=== PATIENT | male | born 1990 | race Caucasian/White ===

== ENCOUNTER 2022-11-14 00:59 | Inpatient (IN) | payer OTHER, SELFPAY ==
[2022-11-14 01:00] VITALS: BP 122/68; PULSE 75; RESP 16; TEMP 36.6; O2SAT 94
--- OUTSIDE RECORDS SUMMARY | 2022-11-14 01:02 | XMS_ITS | Continuity of Care Document ---
Author Name Unknown Organization [facility] ter Address [address] [place] [id number]- Care Team Providers Care Power Reactor Operator Name Role Phone Not on Staff, PCP Primary Care Physician Unavail able Encounter [facility] Date(s): 08/08/22 - 08/10/[address] [address]- Encounter Diagnosis Hallucinations(Final) - 08/09/22 Discharge Disposition: Transfer to [facility] Facility Attending Physician: Enmanuel HILL, Brittani Storey Admitting Physician: Brittani Singer MD Referring Physician: Not on Staff, Referring MD Allergies, Adverse Reactions, Alerts No Known Allergies Immunizations Given and Recorded Vaccine Date Status Refusal Reason Diphth-Tetanus Toxoids Adsorbed(oldterm) 12/03/08 Given Medications Celexa = 30 mg, By Mouth, Daily, 0 Refills, Maintenance, 01/20/19 21:18:52 EST Start Date: 01/20/19 Status: Ordered cloNIDine 0.1 mg/12 hr oral tablet, extended release 1 tablet = 0.1 mg, By Mouth, Daily at bedtime, 0 Refills, Maintenance, 01/30/19 8:31:31 EST Start Date: 01/30/19 Status: Ordered ibuprofen 800 mg oral tablet 800 mg, 1, tablet, By Mouth, 3 times a day, # 90 tablet, Refills 0, Maintenance, 01/30/19 8:33:53 EST Start Date: 01/30/19 Status: Ordered Methadone Liquid 60 mg, Solution, By Mouth, Hold for: sedated, rr<10, 08/10/22 9:00:00 EDT Start Date: 08/10/22 Stop Date: 08/10/22 Status: Completed permethrin 1% topical kit See Instructions, use as directed, # 1 kit, 0 Refills, Maintenance, 05/21/17 21:59:55 Start Date: 3/23/18 Status: Ordered traZODone 150 mg oral tablet 1 tablet = 150 mg, By Mouth, Daily at bedtime, PRN Insomnia, # 30 tablet, 0 Refills, Maintenance, 06/11/16 10:47:41, Tablet Start Date: 06/11/16 Stop Date: 07/11/16 Status: Ordered Vital Signs Most recent to oldest [Reference Range]: 1 2 3 Height 188 cm (08/10/22 2:51 AM) 188 cm (08/09/22 4:05 PM) 188 cm (08/08/22 11:50 PM) Weight 81 kg (08/10/22 2:51 AM) 81 kg (08/09/22 4:05 PM) 81 kg (08/08/22 11:50 PM) Oxygen Saturation [94-100 %] 98 % (08/10/22 9:00 AM) 99 % (08/10/22 2:51 AM) 94 % (08/09/22 4:05 PM) Pulse Rate [55-90 bpm] 57 bpm (08/10/22 9:00 AM) 51 bpm *L* (08/10/22 2:51 AM) 79 bpm (08/09/22 4:05 PM) Body Mass Index [18.5-24.99 kg/m2] 22.92 kg/m2 (08/10/22 2:51 AM) 22.92 kg/m2 (08/09/22 4:05 PM) 22.92 kg/m2 (08/08/22 11:41 PM) Blood Pressure [90-138/55-84 mm Hg] 117/61mm Hg (08/10/22 9:00 AM) 120/63mm Hg (08/10/22 2:51 AM) 119/70mm Hg (08/09/22 4:05 PM) Respiratory Rate [16-30 br/min] 18 br/min (08/10/22 9:04 AM) 18 br/min (08/10/22 9:00 AM) 18 br/min (08/10/22 2:51 AM) Temperature [96.8-100.4 DegF] 98.4 DegF (08/10/22 9:00 AM) 97.9 DegF (08/10/22 2:51 AM) 98.5 DegF (08/09/22 4:05 PM) Mode of Delivery (Oxygen) Room air (08/10/22 9:00 AM) Room air (08/10/22 2:51 AM) Room air (08/09/22 4:05 PM) Blood pressure sites Arm, right (08/10/22 9:00 AM) Arm, right (08/10/22 2:51 AM) Arm, right (08/09/22 4:05 PM) Temperature Route Oral (08/10/22 9:00 AM) Oral (08/10/22 2:51 AM) Oral (08/09/22 4:05 PM) Dry Weight 81 kg (08/10/22 2:51 AM) 81 kg (08/09/22 4:05 PM) 81 kg (08/08/22 11:50 PM) Weight Obtained Via Standing scale (08/08/22 11:41 PM) Dry Weight Obtained Via Standing scale (08/08/22 11:41 PM) Social History Social History Type Response Smoking Status Current every day sm oker; Type: Cigarettes; Other: 1/2ppd cigarettes per day; entered on: 05/21/17 Sex Patient Care team information Care Team Personnel Name: Shaka Tran RN Position: [facility] ED RN W/OE and Tasks Member Role: Primary Care Nurse Name: Humberto Wan RN Position: [facility] SN RN Member Role: Primary Care Nurse Name: Not on Staff, PCP Position: [facility] Physician (General Medicine) Member Role: PCP Name: *[facility], ED Attending Position: [facility] ED Attendings Patient Name: Tawanna Mantilla RN Position: [facility] ED RN W/OE and Tasks Member Role: Patient Care Provider Name: Enmanuel HILL, Brittani Storey Position: [facility] ED Medicine MD Member Role: ED Attending Physician Address: Address: [address] [place] [address]- Care Team Related Persons Name: JORDIN MARTINEZ Address: home [address] [place] [address]
--- OUTSIDE RECORDS SUMMARY | 2022-11-14 01:02 | XMS_ITS | Continuity of Care Document ---
Author Name Unknown Organization [facility] ter Address [address] [place] [address]- Care Team Providers Care Informatics Specialist Name Role Phone Not on Staff, PCP Primary Care Physician Unavail able Encounter [facility] Date(s): 06/30/22 - 07/01/[address] [address]- Discharge Disposition: Transfer to [facility] Facility Attending Physician: Taylor Kay MD Admitting Physician: Taylor Kay MD Referring Physician: Not on Staff, Referring [...] EST Start Date: 01/30/19 Status: Ordered Methadone Tablet 65 mg, Tablet, By Mouth, 07/01/22 9:23:00 EDT Start Date: 07/01/22 Stop Date: 07/01/22 Status: Completed permethrin 1% topical kit See Instructions, use as directed, # 1 kit, 0 Refills, Maintenance, 05/21/17 21:59:55 Start Date: 05/21/17 Status: Ordered traZODone 150 mg oral tablet 1 tablet = 150 mg, By Mouth, Daily at bedtime, PRN Insomnia, # 30 tablet, 0 Refills, Maintenance, 06/11/16 10:47:41, Tablet Start Date: 06/11/16 Stop Date: 07/11/16 Status: Ordered Vital Signs Most recent to oldest [Reference Range]: 1 2 3 Oxygen Saturation [94-100 %] 99 % (07/01/22 3:55 PM) 98 % (07/01/22 2:22 AM) 97 % (06/30/22 8:24 PM) Pulse Rate [55-90 bpm] 81 bpm (07/01/22 3:55 PM) 69 bpm (07/01/22 2:22 AM) 120 bpm *H* (06/30/22 8:20 PM) Blood Pressure [90-138/55-84 mm Hg] 118/69mm Hg (07/01/22 2:22 AM) 144/91mm Hg *H* (06/30/22 8:24 PM) Respiratory Rate [16-30 br/min] 16 br/min (07/01/22 3:55 PM) 16 br/min (07/01/22 9:44 AM) 18 br/min (07/01/22 2:22 AM) Temperature [96.8-100.4 DegF] 98.7 DegF (07/01/22 3:55 PM) 98.2 DegF (06/30/22 8:24 PM) Mode of Delivery (Oxygen) Room air (07/01/22 3:55 PM) Room air (07/01/22 2:22 AM) Room air (06/30/22 8:24 PM) Blood pressure sites Arm, left (07/01/22 2:22 AM) Arm, left (06/30/22 8:24 PM) Temperature Route Oral (07/01/22 3:55 PM) Oral (06/30/22 8:24 PM) Social History Social History Type Response Smoking Status Current every day loreta quintana; Type: Cigarettes; Other: 1/2ppd cigarettes per day; entered on: 05/21/17 Sex EKG study * Event Display: ECG 12-Lead Authored Date: Please click on pdf link to open report * Event Display: ECG 12-Lead Authored Date: Ventricular Rate: 64 BPM Atrial Rate: 64 BPM P-R Interval: 188 ms QRS Duration: 100 ms Q-T Interval: 418 ms QTC Calculation(Bazett): 431 ms P [place]: 46 degrees R [place]: 83 degrees T [place]: 66 degrees Normal sinus rhythm ST elevation, consider early repolarization Borderline ECG When compared with ECG of 07-JUN-2016 18:13, No significant change was found Confirmed by LAKESHIA LEACH MD ([id number]) on 07/01/2022 10:43:28 AM [place]: LAKESHIA LEACH MD Patient Care team information Care Team Personnel Name: Shaka Tran RN Position: [facility] ED RN W/OE and Tasks Member Role: Primary Care Nurse Name: Humberto Wan RN Position: [facility] SN RN Member Role: Primary Care Nurse Name: Not on Staff, PCP Position: [facility] Physician (General Medicine) Member Role: PCP Name: *[facility], ED Attending Position: [facility] ED Attendings Patient Name: Shaka Tran RN Position: [facility] ED RN W/OE and Tasks Member Role: Patient Care Provider Name: Taylor Kay MD Position: [facility] ED Medicine MD Member Role: ED Attending Physician Address: Address: [address] [place] [id number]- Care Team Related Persons Name: JORDIN MARTINEZ Address: home [address] [place] [address]
--- OUTSIDE RECORDS SUMMARY | 2022-11-14 01:02 | XMS_ITS | Continuity of Care Document ---
Author Name Unknown Organization [facility] Address [address] [place] [id number]- Care Team Providers Care Data Mining Analyst Name Role Phone Not on Staff, PCP Primary Care Physician Unavail able Encounter [facility] Date(s): 12/05/19 - 12/05/[address] [address]- [facility] Discharge Disposition: A-D/C Walkout Attending Physician: Not on Staff, Attending MD Admitting Physician: Not on Staff, Admitting MD Referring Physician: Not on Staff, Referring MD Allergies, Adverse Reactions, Alerts Substance Reaction Severity Status NKA Active Immunizations Given and Recorded Vaccine Date Status [...] 8:33:53 EST Start Date: 01/30/19 Status: Ordered permethrin 1% topical kit See Instructions, use [...] recent to oldest [Reference Range]: 1 2 Oxygen Saturation [94-100 %] 98 % (12/05/19 1:46 PM) 99 % (12/05/19 1:34 PM) Pulse Rate [55-90 bpm] 67 bpm (12/05/19 1:46 PM) 85 bpm (12/05/19 1:34 PM) Blood Pressure [90-138/55-84 mm Hg] 117/ 66mm Hg (12/05/19 1:46 PM) Respiratory Rate [16-30 br/min] 20 br/mi n (12/05/19 2:06 PM) 16 br/min (12/05/19 1:46 PM) Temperature [96.8-100.4 DegF] 98.1 DegF (12/05/19 1:46 PM) Mode of Delivery (Oxygen) Room air (12/05/19 1:46 PM) Room air (12/05/19 1:34 PM) Blood pressure sites Arm, right (12/05/19 1:46 PM) Temperature Route Oral (12/05/19 1:46 PM) Social History Social History Type Response Smoking Status Current every day loreta quintana; Type: Cigarettes; Other: 1/2ppd cigarettes per day; entered on: 05/21/17 Sex
--- OUTSIDE RECORDS SUMMARY | 2022-11-14 01:02 | XMS_ITS | Continuity of Care Document ---
Author Name Unknown Organization [facility] ter Address [address] [place] [id number]- Care Team Providers Care Negative Turner Apprentice Name Role Phone Not on Staff, PCP Primary Care Physician Unavail able Encounter [facility] Date(s): 12/16/21 - 12/16/[address] [address]- Encounter Diagnosis Agitation(Final) - 12/16/21 Discharge Disposition: A-D/C Home Attending Physician: Herman Heck MD Admitting Physician: Herman Heck MD Referring Physician: Not on Staff, Referring [...] Most recent to oldest [Reference Range]: 1 Oxygen Saturation [94-100 %] 95 % (12/16/21 2:25 PM) Pulse Rate [55-90 bpm] 63 bpm (12/16/21 2:25 PM) Blood Pressure [90-138/55-84 mm Hg] 103/ 58mm Hg (12/16/21 2:25 PM) Respiratory Rate [16-30 br/min] 18 br/mi n (12/16/21 2:25 PM) Temperature [96.8-100.4 DegF] 98.7 DegF (12/16/21 2:25 PM) Mode of Delivery (Oxygen) Room air (12/16/21 2:25 PM) Temperature Route Oral (12/16/21 2:25 PM) Social History Social History Type Response Smoking Status Current every day loreta quintana; Type: Cigarettes; Other: 1/2ppd cigarettes per day; entered on: 05/21/17 Sex Patient Care team information Personnel Name: Not on Staff, PCP
[2022-11-14 02:04] VITALS: BMI 27.8
--- NOTE | 2022-11-14 03:56 | PC.ADMIT ---
Patient admitted to [facility] from [facility] ED on 11/14/22 at 0100 on a CV? for increased SI secondary to paranoia. Patient reporting increase in auditory and visual hallucinations, despite being med compliant.Patient has history of inpt hospitalizations in the past. Toxicology is positive for methadone, cocaine, THC, fentanyl and cannabis. Alcohol < 3. Patient reports being on scheduled methadone 110mg daily, utilizes [facility] in [place]. Upon arrival to the unit, patient dressed in hospital [facility] and was sleeping on stretcher. Alert and oriented x 4. He had already received his HS meds and could barely stay awake. Skin and contraband check with second RN completed. Patient declined to sign LEONOR for any friends or family, he does not wish for them to know he is here. He signed an LEONOR for his pharmacy only. Vital signs, height and weight obtained. Patient declined to participate in the admission process due to being so tired. He denies SI/HI/AH/VH at time of admission, contracts for safety. This bond underwriter attempted to call pharmacy to reconcile meds however their computer system was down for updates. Will call to verify methadone dose upon clinic opening and reconcile meds with patient?s pharmacy once computers are back up.
--- NOTE | 2022-11-14 07:00 | HE.PHANOTE ---
RE: methadone Received methadone verification form per [facility] 110mg last dose 11/11/22
[2022-11-14 09:35] VITALS: BP 136/80; PULSE 75; RESP 18; TEMP 36.4; O2SAT 98
[2022-11-14] MEDS: QUEtiapine Fumarate 25 MG TABLET PO (09:42)
[2022-11-14] MEDS: OLANZapine 5 MG TABLET PO (09:42)
[2022-11-14] MEDS: methADONE HCl 20 MG/2 ML ORAL.CONC 110 MG PO (09:44)
--- NOTE | 2022-11-14 10:06 | HO.PSYADMNOT ---
HPI Date of Service: 11/14/22 Chief Complaint: Opioid Use D/O w/ perpetual disturbances, Stimuli Sources of Information: patient interviewed (pt refused agreed to meet tomorrow - I tried 3 x), chart reviewed and crisis/core team assessment reviewed HPI Subjective Notes: Conditional Voluntary Narrative: Pt presented to [facility] he was having hallucinations and felt the tv was talking to him- saw cars that weren't there, he is on MAT for opiate use , and has been having inc intrusve thougth plan to over dose However his tox screen was reported positive for methadone, cocain, thc and fenatnyl and mj- So sobreity seems unlikely - Goes to [facility] for methadone- dose 110mg Past Psychiatric History: prior psychiatric care- Medical Evaluation Reviewed: Hospitalist Charity Pending [facility] Substance History: opiate, cocaine, thc, Diagnostics Vital Signs (24Hr): Vital Signs - 24 hr 11/14/22 01:00 Temperature 97.8 F Pulse Rate 75 Respiratory Rate 16 Blood Pressure 122/68 Pulse Oximetry 94 Oxygen Delivery Method Room Air BMI result Body Mass Index 27.8 Meds/Allergies Meds Home Medications Medication Instructions Recorded Confirmed Type hydroxyzine HCl 50 mg tablet 50 mg PO BID PRN Anxiety 11/14/22 11/14/22 History ibuprofen 600 mg tablet 400 mg PO BID PRN pain 11/14/22 11/14/22 History olanzapine 5 mg tablet 5 mg PO DAILY 11/14/22 11/14/22 History quetiapine 25 mg tablet 25 mg PO DAILY 11/14/22 11/14/22 History trazodone 100 mg tablet 200 mg PO BEDTIME 11/14/22 11/14/22 History Allergies Allergies Allergy/AdvReac Type Severity Reaction Status Date / Time No Known Allergies Allergy Unverified 11/16/19 19:18 [No Known Allergies*] Mental Status Exam Mental Status Exam Narrative: very irritable I just want to watch TV wearing eye glasses with one side covered up with tape/papertowel? was given multiple chances to meet with provider Patient Appearance: Inappropriate and Unkempt Patient Orientation: Person and Place Level of Consciousness: Awake Patient Behavior: Belligerent, Resistive to Care and Avoidant Mood Description: Labile and Angry Affect Description: Hostile Ability to Follow Directions: Poor Speech Pattern: Clear Thought Process: Distracted Thought Content: positive for Suicidal Ideation Depressive Symptoms: Increased Irritability Abnormal Motor Activity Signs and Symptoms: Muscle Rigidity Judgement: Poor Assessment & Plan Assessment & Plan (1) Hallucination, visual: Status: Acute Code(s): R44.1 - Visual hallucinations (2) Paranoia (psychosis): Status: Acute Code(s): F22 - Delusional disorders (3) Opiate abuse, continuous: Status: Acute Code(s): F11.10 - Opioid abuse, uncomplicated (4) Cocaine abuse: Status: Acute Code(s): F14.10 - Cocaine abuse, uncomplicated (5) Cannabis abuse: Status: Acute Code(s): F12.10 - Cannabis abuse, uncomplicated Plan interview tomorrow contintue current meds, watch for withdrawl ? though on scheduled methadone- other things not likely to physically withdraw from very low dose antipsychotic for condition- Patient educated on: other Informed Consent: further education needed Reason for continued inpatient stay Substantial Risk for: rapid decompensation Statement Statement: I have reviewed the history and physical and performed a pertinent examination on my patient. No changes have occurred unless specified. If the History and Physical was not performed prior to admission, the Hospitalist's service will be consulted for completing the admission physical. reviewed dr pittman's exam/note Time Spent With Patient Time: Total time managing care of this patient today ____ minutes.
--- NOTE | 2022-11-14 10:53 | HO.PM.IMCN ---
History of Present Illness Data of Consult Service Date: 11/14/22 Primary Care Provider: Unknown Physician HPI Saw the patient in medical evaluation. 32 year male admitted for management SI related to Paranoia. Patient denies any chronic medial illnesses and when asked about reasons he is here he says he doesn't want to talk about it and didn't want to talk about any thing else this time but allowed me to examed him Review of Systems Review of Systems: He declined to answer PMFSH Social History Housing: House Do you presently have visiting nurse or other home services: No Patient Tobacco Use Status: Current everyday Tobacco user Tobacco use type: Cigarette Smoked in Last 30 Days: Yes Use of substances other than those prescribed or required for medical reasons: Yes Substance Use Type: Crack/Cocaine, Heroin and Marijuana Substance Use Frequency: Daily Last Used Substance: Just Prior to Admission Currently Displaying Signs/Symptoms of Drug Intoxication Withdrawal: No Advance Directives: No Advance Directives Information Provided: No Do you have thoughts of harming others: None Do you have a plan to hurt others: No Plan Recently lost weight without trying: No Nutrition Risks: No Nutritional Risk Poor oral hygiene: No Meds Allergies Allergy/AdvReac Type Severity Reaction Status Date / Time No Known Allergies Allergy Unverified 11/16/19 19:18 [No Known Allergies*] Active Medications: Current Medications Acetaminophen (Acetaminophen 325 Mg Tablet) 650 mg PO Q6H PRN PRN Reason: Headache/Pain Mild Scale (1-3) Al Hydroxide/Mg Hydroxide (Magnesium Hydrox/Alum Hydrox 30 Ml Oral.Susp) 30 ml PO Q6H PRN PRN Reason: Heartburn/Nausea Hydroxyzine HCl (Hydroxyzine Hcl 25 Mg Tablet) 25 mg PO Q6H PRN PRN Reason: Anxiety Magnesium Hydroxide (Milk Of Magnesia 30 Ml Oral.Susp) 30 ml PO DAILY PRN PRN Reason: Constipation Methadone HCl (Methadone Hcl 20 Mg/2 Ml Oral.Conc) 110 mg PO DAILY [facility] Last Admin: 11/14/22 09:44 Dose: 110 mg Olanzapine (Olanzapine 5 Mg Tablet) 5 mg PO DAILY [facility] Last Admin: 11/14/22 09:42 Dose: 5 mg Quetiapine Fumarate (Quetiapine Fumarate 25 Mg Tablet) 25 mg PO DAILY [facility] Last Admin: 11/14/22 09:42 Dose: 25 mg Trazodone HCl (Trazodone Hcl 100 Mg Tablet) 200 mg PO BEDTIME [facility] Home Medications Medication Instructions Recorded Confirmed Last Taken Type hydroxyzine HCl 50 mg tablet 50 mg PO BID PRN Anxiety 11/14/22 11/14/22 Unknown History ibuprofen 600 mg tablet 400 mg PO BID PRN pain 11/14/22 11/14/22 Unknown History olanzapine 5 mg tablet 5 mg PO DAILY 11/14/22 11/14/22 Unknown History quetiapine 25 mg tablet 25 mg PO DAILY 11/14/22 11/14/22 Unknown History trazodone 100 mg tablet 200 mg PO BEDTIME 11/14/22 11/14/22 Unknown History Physical Exam Vital Signs and Narrative: Vital Signs: Last Vital Signs Temp 97.5 F 11/14/22 09:35 Pulse 75 11/14/22 09:35 Resp 18 11/14/22 09:35 BP 136/80 11/14/22 09:35 Pulse Ox 98 11/14/22 09:35 O2 Del Method Room Air 11/14/22 09:35 BMI result Body Mass Index 27.8 Const: Other: General: AO X 3, no acute distress heent unremarkable Resp: CTA bilateral CVS: S1,S2,RRR GI: +BS, NT, no distention Skin: No rash Neuro: motor grossly intact, CN 2 to 12 intact Psych: appropriate affect Assessment and Plan (1) Encounter for medical assessment: Status: Acute Plan 32 year old male admitted for management of SI with Paranoia, seen in medical consultation. I reviewed vitals, meds and generally does not appear to have any acute medical issues at this time. Recommend continuing current care directed by Psychiatric provider. Thanks for the consult Time Spent With Patient Time: Total time managing care of this patient today ____ minutes.
[2022-11-14] MEDS: Nicotine Polacrilex Lozenge 4 MG LOZENGE BUCCAL (11:41)
[2022-11-14] MEDS: traZODone HCL 100 MG TABLET 200 MG PO (20:57)
[2022-11-15 08:35] VITALS: BP 132/84; PULSE 96; RESP 18; TEMP 36.4; O2SAT 98
[2022-11-15] MEDS: OLANZapine 5 MG TABLET PO (08:38)
[2022-11-15] MEDS: Nicotine 21 MG PATCH.TD24 TRANSDERMA (08:38)
[2022-11-15] MEDS: QUEtiapine Fumarate 25 MG TABLET PO (08:38)
[2022-11-15] MEDS: methADONE HCl 20 MG/2 ML ORAL.CONC 110 MG PO (08:39)
[2022-11-15] MEDS: Nicotine Polacrilex Lozenge 4 MG LOZENGE BUCCAL ×2 (09:14→11:19)
--- NOTE | 2022-11-15 11:37 | HO.PSYCHPN ---
Subjective Subjective Date of Service: 11/15/22 Reason For Visit: Opioid Use D/O w/ perpetual disturbances, Stimuli Subjective Notes: Conditional Voluntary Interim History: Continues uncooperative with this provider- always refusing to meet -today he says nauseated, yesterday he said fatigued=- Asked if he understood cv and he says he did- Asked if wanted something for nausea he said no- he had just eating lunch- Medication Compliance: Yes (but on xs low dose for psychosis) Side effects from medications: No Attending Groups: Intermittent Review of Systems Acute medical concerns: Yes nausea? Medical Review of Systems: unchanged Mental Status Exam Mental Status Exam Narrative: broken glasses, lying in bed- refusing to meet with provider- Patient Appearance: Disheveled and Unkempt Patient Orientation: Person, Place and Time Level of Consciousness: Drowsy Patient Behavior: Guarded, Resistive to Care, Avoidant and Uncooperative Mood Description: Angry Affect Description: Labile Speech Pattern: Poor Articulation Thought Content: positive for Disorganized Abnormal Motor Activity Signs and Symptoms: Restlessness Judgement: Poor Diagnostics Vital Signs (24Hr): Vital Signs - 24 hr 11/15/22 08:35 Temperature 97.6 F Pulse Rate 96 Respiratory Rate 18 Blood Pressure 132/84 Pulse Oximetry 98 Oxygen Delivery Method Room Air BMI result Body Mass Index 27.8 Medications Medications Current Medications Acetaminophen (Acetaminophen 325 Mg Tablet) 650 mg PO Q6H PRN PRN Reason: Headache/Pain Mild Scale (1-3) Al Hydroxide/Mg Hydroxide (Magnesium Hydrox/Alum Hydrox 30 Ml Oral.Susp) 30 ml PO Q6H PRN PRN Reason: Heartburn/Nausea Hydroxyzine HCl (Hydroxyzine Hcl 25 Mg Tablet) 25 mg PO Q6H PRN PRN Reason: Anxiety Magnesium Hydroxide (Milk Of Magnesia 30 Ml Oral.Susp) 30 ml PO DAILY PRN PRN Reason: Constipation Methadone HCl (Methadone Hcl 20 Mg/2 Ml Oral.Conc) 110 mg PO DAILY [facility] Last Admin: 11/15/22 08:39 Dose: 110 mg Nicotine (Nicotine 21 Mg Patch.Td24) 21 mg TRANSDERMA DAILY [facility] Last Admin: 11/15/22 08:38 Dose: 21 mg Nicotine Polacrilex (Nicotine Polacrilex Lozenge 4 Mg Lozenge) 4 mg BUCCAL Q2H PRN PRN Reason: Nicotine Cravings Last Admin: 11/15/22 11:19 Dose: 4 mg Olanzapine (Olanzapine 5 Mg Tablet) 5 mg PO DAILY [facility] Last Admin: 11/15/22 08:38 Dose: 5 mg Quetiapine Fumarate (Quetiapine Fumarate 25 Mg Tablet) 25 mg PO DAILY [facility] Last Admin: 11/15/22 08:38 Dose: 25 mg Trazodone HCl (Trazodone Hcl 100 Mg Tablet) 200 mg PO BEDTIME [facility] Last Admin: 11/14/22 20:57 Dose: 200 mg Allergies Allergies Allergy/AdvReac Type Severity Reaction Status Date / Time No Known Allergies Allergy Unverified 11/16/19 19:18 [No Known Allergies*] Assessment & Plan Assessment & Plan (1) Hallucination, visual: Status: Acute Code(s): R44.1 - Visual hallucinations (2) Paranoia (psychosis): Status: Acute Code(s): F22 - Delusional disorders (3) Opiate abuse, continuous: Status: Acute Code(s): F11.10 - Opioid abuse, uncomplicated (4) Cocaine abuse: Status: Acute Code(s): F14.10 - Cocaine abuse, uncomplicated (5) Cannabis abuse: Status: Acute Code(s): F12.10 - Cannabis abuse, uncomplicated Plan interview tomorrow contintue current meds, watch for withdrawl ? though on scheduled methadone- other things not likely to physically withdraw from very low dose antipsychotic for condition- 11/15 minor doses of medication so far unwilling to engage in care-though visible on unit and mileu Patient educated on: diagnosis and medication risk/benefits Informed Consent: further education needed Reason for continued inpatient stay Substantial Risk for: inability to function and rapid decompensation Time Spent With Patient Time: Total time managing care of this patient today ____ minutes.
[2022-11-15] MEDS: traZODone HCL 100 MG TABLET 200 MG PO (20:47)
[2022-11-15 21:32] VITALS: BP 120/62; PULSE 66; RESP 16; TEMP 36.6; O2SAT 98
[2022-11-16 08:54] VITALS: BP 126/72; PULSE 67; RESP 16; TEMP 36; O2SAT 97
[2022-11-16] MEDS: methADONE HCl 20 MG/2 ML ORAL.CONC 110 MG PO (08:59)
[2022-11-16] MEDS: Nicotine 21 MG PATCH.TD24 TRANSDERMA (09:00)
[2022-11-16] MEDS: OLANZapine 5 MG TABLET PO (09:00)
[2022-11-16] MEDS: QUEtiapine Fumarate 25 MG TABLET PO (09:00)
[2022-11-16] MEDS: Nicotine Polacrilex Lozenge 4 MG LOZENGE BUCCAL ×3 (09:07→13:37)
[2022-11-16] MEDS: hydrOXYzine HCL 25 MG TABLET PO (11:14)
[2022-11-16] MEDS: Acetaminophen 325 MG TABLET 650 MG PO (11:14)
--- NOTE | 2022-11-16 14:34 | HO.PSYCHPN ---
Subjective Subjective Date of Service: 11/16/22 Reason For Visit: Opioid Use D/O w/ perpetual disturbances, Stimuli Subjective Notes: Conditional Voluntary Interim History: Reviewed in team and . T/W and social media campaign manager met with patient. Patient presents guarded during 1:1. Patient stated, I came to the hospital because the voices were getting worse and made me suicidal. Patient reports his voices are judgmental and makes me nervous around people . He reports his voices improve with substance use;states he would like a referral to a TSS or CSS program. He reports suicidal ideation with plan to OD. Denies HI. Reviewed medications risks/benefits; pt agreed to increase in zyprexa. Medication Compliance: Yes Side effects from medications: No Attending Groups: Intermittent Review of Systems Constitutional: Reports as per HPI Eyes: Reports as per HPI Reports as per HPI Cardiovascular: Reports as per HPI Respiratory: Reports as per HPI Gastrointestinal: Reports as per HPI Genitourinary: Reports as per HPI Musculoskeletal: Reports as per HPI Skin/Breast: Reports as per HPI Reports as per HPI Psychiatric: Reports as per HPI Endocrine: Reports as per HPI Hematologic/Lymphatic: Reports as per HPI Allergic/Immunologic: Reports as per HPI Mental Status Exam Mental Status Exam Narrative: Pt is alert and oriented; behavior is cooperative and guarded; dressed in casual attire with unkempt hair; mood is described as depressed ; eye contact appropriate; Speech is normal rate, volume and prosody and not pressured; no psychomotor agitation/retardation present; thought process is organized and goal directed; Thought content is on tx; denies HI. Reports auditory hallucinations. Patients insight and judgment are poor. Diagnostics Vital Signs (24Hr): Vital Signs - 24 hr 11/15/22 21:32 11/16/22 08:54 Temperature 97.8 F 96.8 F Pulse Rate 66 67 Respiratory Rate 16 16 Blood Pressure 120/62 126/72 Pulse Oximetry 98 97 Oxygen Delivery Method Room Air Room Air BMI result Body Mass Index 27.8 Medications Medications Current Medications Acetaminophen (Acetaminophen 325 Mg Tablet) 650 mg PO Q6H PRN PRN Reason: Headache/Pain Mild Scale (1-3) Last Admin: 11/16/22 11:14 Dose: 650 mg Al Hydroxide/Mg Hydroxide (Magnesium Hydrox/Alum Hydrox 30 Ml Oral.Susp) 30 ml PO Q6H PRN PRN Reason: Heartburn/Nausea Hydroxyzine HCl (Hydroxyzine Hcl 25 Mg Tablet) 25 mg PO Q6H PRN PRN Reason: Anxiety Last Admin: 11/16/22 11:14 Dose: 25 mg Magnesium Hydroxide (Milk Of Magnesia 30 Ml Oral.Susp) 30 ml PO DAILY PRN PRN Reason: Constipation Methadone HCl (Methadone Hcl 20 Mg/2 Ml Oral.Conc) 110 mg PO DAILY [facility] Last Admin: 11/16/22 08:59 Dose: 110 mg Nicotine (Nicotine 21 Mg Patch.Td24) 21 mg TRANSDERMA DAILY [facility] Last Admin: 11/16/22 09:00 Dose: 21 mg Nicotine Polacrilex (Nicotine Polacrilex Lozenge 4 Mg Lozenge) 4 mg BUCCAL Q2H PRN PRN Reason: Nicotine Cravings Last Admin: 11/16/22 13:37 Dose: 4 mg Olanzapine (Olanzapine 10 Mg Tablet) 10 mg PO DAILY [facility] Quetiapine Fumarate (Quetiapine Fumarate 25 Mg Tablet) 25 mg PO DAILY [facility] Last Admin: 11/16/22 09:00 Dose: 25 mg Trazodone HCl (Trazodone Hcl 100 Mg Tablet) 200 mg PO BEDTIME [facility] Last Admin: 11/15/22 20:47 Dose: 200 mg Allergies Allergies Allergy/AdvReac Type Severity Reaction Status Date / Time No Known Allergies Allergy Unverified 11/16/19 19:18 [No Known Allergies*] Assessment & Plan Assessment & Plan (1) Schizoaffective disorder, depressive type: Status: Acute Code(s): F25.1 - Schizoaffective disorder, depressive type (2) Opiate abuse, continuous: Status: Acute Code(s): F11.10 - Opioid abuse, uncomplicated (3) Cocaine abuse: Status: Acute Code(s): F14.10 - Cocaine abuse, uncomplicated (4) Cannabis abuse: Status: Acute Code(s): F12.10 - Cannabis abuse, uncomplicated Plan interview tomorrow contintue current meds, watch for withdrawl ? though on scheduled methadone- other things not likely to physically withdraw from very low dose antipsychotic for condition- 11/15 minor doses of medication so far unwilling to engage in care-though visible on unit and mileu 11/16: T/W and social media campaign manager met with patient. Patient presents guarded during 1:1. Patient stated, I came to the hospital because the voices were getting worse and made me suicidal. Patient reports his voices are judgmental and makes me nervous around people . He reports his voices improve with substance use;states he would like a referral to a TSS or CSS program. He reports suicidal ideation with plan to OD. Denies HI. Reviewed medications risks/benefits; pt agreed to increase in zyprexa. Was offered a consult with motor coach bus driver and comprehensive care clinic; pt refused. Pt asked for HIV test. Patient educated on: diagnosis, medication risk/benefits and substance abuse Informed Consent: understands and further education needed Reason for continued inpatient stay Substantial Risk for: harm to self and med/psych decompensation Time Spent With Patient Time: Total time managing care of this patient today _30___ minutes.
[2022-11-16] MEDS: traZODone HCL 100 MG TABLET 200 MG PO (20:24)
[2022-11-17 09:21] LABS: Alanine Aminotransferase 77 U/L (0-40); Albumin Level 3.9 g/dL (3.5-5.0); Alkaline Phosphatase 79 U/L (39-117); Anion Gap 11 (12-20); Aspartate Amino Transferase 44 U/L (5-37); Bilirubin Total 0.3 mg/dL (0.0-1.0); Blood Urea Nitrogen 15 mg/dL (9-16); Calcium 9.4 mg/dL (8.4-10.2); Carbon Dioxide 26 mmol/L (22-29); Chloride 107 mmol/L (96-108); Creatinine Clr Calc Pharmacy 174.4; Estimated Glomerular Filt Rate > 60; Glucose Fasting 90 mg/dL (60-99); Potassium 4.2 mmol/L (3.3-5.1); Sodium 140 mmol/L (135-145); Total Protein 6.9 g/dL (6.5-8.0)
[2022-11-17 09:27] LABS: Cholesterol 148 mg/dL (<200); HDL Cholesterol 36 mg/dL (>40); LDL Cholesterol Calculated 71 mg/dL (<100); Triglycerides 207 mg/dL (<150)
[2022-11-17 09:42] LABS: HIV AB/AG Nonreactive (Nonreactive); HIV Num 1 0.06 S/CO (0.00-0.99)
[2022-11-17] MEDS: methADONE HCl 20 MG/2 ML ORAL.CONC 110 MG PO (09:47)
[2022-11-17] MEDS: OLANZapine 10 MG TABLET PO (09:47)
[2022-11-17] MEDS: QUEtiapine Fumarate 25 MG TABLET PO (09:47)
[2022-11-17] MEDS: Nicotine 21 MG PATCH.TD24 TRANSDERMA (09:51)
[2022-11-17] MEDS: Nicotine Polacrilex Lozenge 4 MG LOZENGE BUCCAL ×4 (10:27→20:28)
[2022-11-17 10:31] VITALS: BP 139/83; PULSE 94; RESP 16; TEMP 36.5; O2SAT 97
--- NOTE | 2022-11-17 11:08 | HO.PSYCHPN ---
Subjective Subjective Date of Service: 11/17/22 Reason For Visit: Opioid Use D/O w/ perpetual disturbances, Stimuli Subjective Notes: Conditional Voluntary Interim History: Reviewed in team and . Patient reports feeling depressed today; pt stated, I'm worried about the future. The winter is coming and I don't want to freeze. I want to work and have a place to stay . Patient reports passive suicidal ideation; pt stated, I wish I was but I wouldn't act on it . Denies HI/VH/AH. Medication Compliance: Yes Side effects from medications: No Attending Groups: No Review of Systems Constitutional: Reports as per HPI Eyes: Reports as per HPI Reports as per HPI Cardiovascular: Reports as per HPI Respiratory: Reports as per HPI Gastrointestinal: Reports as per HPI Genitourinary: Reports as per HPI Musculoskeletal: Reports as per HPI Skin/Breast: Reports as per HPI Reports as per HPI Psychiatric: Reports as per HPI Endocrine: Reports as per HPI Hematologic/Lymphatic: Reports as per HPI Allergic/Immunologic: Reports as per HPI Mental Status Exam Mental Status Exam Narrative: Pt is alert and oriented; behavior is cooperative and calm; dressed in casual attire; mood is described as depressed ; eye contact appropriate; Speech is normal rate, volume and prosody and not pressured; no psychomotor agitation/retardation present; thought process is organized and goal directed; Thought content is on tx; otherwise pertinent to relevant topics and without any delusional content, paranoid ideations or grandiosity; denies HI. Pt reports passive suicidal ideation. There is no evidence of perceptual disturbance. Patients insight and judgment are poor. Diagnostics Vital Signs (24Hr): Vital Signs - 24 hr 11/17/22 10:31 Temperature 97.7 F Pulse Rate 94 Respiratory Rate 16 Blood Pressure 139/83 Pulse Oximetry 97 Oxygen Delivery Method Room Air BMI result Body Mass Index 27.8 Labs 11/17/22 08:25 Labs: Laboratory Results - last 48 hr 11/17/22 08:25 Sodium 140 Potassium 4.2 Chloride 107 Carbon Dioxide 26 Anion Gap 11 L BUN 15 Creatinine 0.72 Estim Creat Clear Calc 174.4 Estimated GFR > 60 Fasting Glucose 90 Calcium 9.4 Total Bilirubin 0.3 AST 44 H ALT 77 H Alkaline Phosphatase 79 Total Protein 6.9 Albumin 3.9 Triglycerides 207 H Cholesterol 148 LDL Cholesterol, Calc 71 HDL Cholesterol 36 L HIV 1&2 Ab/P24 Ag 4thGn Nonreactive Medications Medications Current Medications Acetaminophen (Acetaminophen 325 Mg Tablet) 650 mg PO Q6H PRN PRN Reason: Headache/Pain Mild Scale (1-3) Last Admin: 11/16/22 11:14 Dose: 650 mg Al Hydroxide/Mg Hydroxide (Magnesium Hydrox/Alum Hydrox 30 Ml Oral.Susp) 30 ml PO Q6H PRN PRN Reason: Heartburn/Nausea Hydroxyzine HCl (Hydroxyzine Hcl 25 Mg Tablet) 25 mg PO Q6H PRN PRN Reason: Anxiety Last Admin: 11/16/22 11:14 Dose: 25 mg Magnesium Hydroxide (Milk Of Magnesia 30 Ml Oral.Susp) 30 ml PO DAILY PRN PRN Reason: Constipation Methadone HCl (Methadone Hcl 20 Mg/2 Ml Oral.Conc) 110 mg PO DAILY [facility] Last Admin: 11/17/22 09:47 Dose: 110 mg Nicotine (Nicotine 21 Mg Patch.Td24) 21 mg TRANSDERMA DAILY [facility] Last Admin: 11/17/22 09:51 Dose: 21 mg Nicotine Polacrilex (Nicotine Polacrilex Lozenge 4 Mg Lozenge) 4 mg BUCCAL Q2H PRN PRN Reason: Nicotine Cravings Last Admin: 11/17/22 10:27 Dose: 4 mg Olanzapine (Olanzapine 10 Mg Tablet) 10 mg PO DAILY [facility] Last Admin: 11/17/22 09:47 Dose: 10 mg Quetiapine Fumarate (Quetiapine Fumarate 25 Mg Tablet) 25 mg PO DAILY [facility] Last Admin: 11/17/22 09:47 Dose: 25 mg Trazodone HCl (Trazodone Hcl 100 Mg Tablet) 200 mg PO BEDTIME [facility] Last Admin: 11/16/22 20:24 Dose: 200 mg Allergies Allergies Allergy/AdvReac Type Severity Reaction Status Date / Time No Known Allergies Allergy Unverified 11/16/19 19:18 [No Known Allergies*] Assessment & Plan Assessment & Plan (1) Schizoaffective disorder, depressive type: Status: Acute Code(s): F25.1 - Schizoaffective disorder, depressive type (2) Opiate abuse, continuous: Status: Acute Code(s): F11.10 - Opioid abuse, uncomplicated (3) Cocaine abuse: Status: Acute Code(s): F14.10 - Cocaine abuse, uncomplicated (4) Cannabis abuse: Status: Acute Code(s): F12.10 - Cannabis abuse, uncomplicated Plan interview tomorrow contintue current meds, watch for withdrawl ? though on scheduled methadone- other things not likely to physically withdraw from very low dose antipsychotic for condition- 11/15 minor doses of medication so far unwilling to engage in care-though visible on unit and mileu 11/16: T/W and social science teacher met with patient. Patient presents guarded during 1:1. Patient stated, I came to the hospital because the voices were getting worse and made me suicidal. Patient reports his voices are judgmental and makes me nervous around people . He reports his voices improve with substance use;states he would like a referral to a TSS or CSS program. He reports suicidal ideation with plan to OD. Denies HI. Reviewed medications risks/benefits; pt agreed to increase in zyprexa. Was offered a consult with outside deliverer and comprehensive care clinic; pt refused. Pt asked for HIV test. 11/17: Patient reports feeling depressed today; pt stated, I'm worried about the future. The winter is coming and I don't want to freeze. I want to work and have a place to stay . Patient reports passive suicidal ideation; pt stated, I wish I was but I wouldn't act on it . Denies HI/VH/AH. HIV results nonreactive; pt notified. Patient educated on: diagnosis, medication risk/benefits, substance abuse and therapeutic strategies Informed Consent: understands Reason for continued inpatient stay Substantial Risk for: med/psych decompensation Time Spent With Patient Time: Total time managing care of this patient today _30___ minutes.
[2022-11-17 11:36] LABS: Reflex LDLD? No
--- NOTE | 2022-11-17 22:08 | PC.NURSE ---
Patient refused Trazadone 200 mg po scheduled HS dose.
[2022-11-18] MEDS: methADONE HCl 20 MG/2 ML ORAL.CONC 110 MG PO (08:01)
[2022-11-18] MEDS: OLANZapine 10 MG TABLET PO (08:01)
[2022-11-18] MEDS: QUEtiapine Fumarate 25 MG TABLET PO (08:01)
[2022-11-18] MEDS: Nicotine 21 MG PATCH.TD24 TRANSDERMA (08:03)
[2022-11-18] MEDS: Nicotine Polacrilex Lozenge 4 MG LOZENGE BUCCAL ×5 (08:13→20:43)
[2022-11-18 08:54] VITALS: BP 134/70; PULSE 71; RESP 16; TEMP 36.3; O2SAT 99
[2022-11-18 11:38] LABS: HBS Num1 115.83 mIU/mL (0-7.99); HBc Num1 0.14 S/CO (0.00-0.79); HBsAGNum1 0.32 S/CO (0.00-0.99); Hepatitis B Core Antibody Nonreactive (Nonreactive); Hepatitis B Surface Antigen Negative (Negative); ~HepC Num1 16.69 S/CO (0.00-0.79); ~Hepatitis B Surface Antibody REACTIVE (Nonreactive); ~Hepatitis C Antibody Reactive (Nonreactive)
[2022-11-18] MEDS: traZODone HCL 100 MG TABLET 200 MG PO (20:43)
--- NOTE | 2022-11-18 20:57 | HO.PSYCHPN ---
Subjective Subjective Date of Service: 11/18/22 Reason For Visit: Opioid Use D/O w/ perpetual disturbances, Stimuli Subjective Notes: Conditional Voluntary Interim History: Pt reports feeling better. He denies SI/HI. He reports sleeping well. He is visible on the unit. He does not attend assigned groups. No behavioral concerns. He reports he wants to be referred to [facility]- made referrals for [facility] program. Medication Compliance: Yes Review of Systems Review of Systems He declined to answer Constitutional: Reports as per HPI Eyes: Reports as per HPI Reports as per HPI Cardiovascular: Reports as per HPI Respiratory: Reports as per HPI Gastrointestinal: Reports as per HPI Genitourinary: Reports as per HPI Musculoskeletal: Reports as per HPI Skin/Breast: Reports as per HPI Reports as per HPI Psychiatric: Reports as per HPI Endocrine: Reports as per HPI Hematologic/Lymphatic: Reports as per HPI Allergic/Immunologic: Reports as per HPI Mental Status Exam Mental Status Exam Narrative: Pt is alert and oriented; behavior is cooperative and calm; dressed in casual attire; mood is described as better ; eye contact appropriate; Speech is normal rate, volume and prosody and not pressured; no psychomotor agitation/retardation present; thought process is organized and goal directed; Thought content is on tx; otherwise pertinent to relevant topics and without any delusional content, paranoid ideations or grandiosity; denies HI. Pt reports passive suicidal ideation. There is no evidence of perceptual disturbance. Patients insight and judgment are poor. Diagnostics Vital Signs (24Hr): Vital Signs - 24 hr 11/18/22 08:54 Temperature 97.4 F Pulse Rate 71 Respiratory Rate 16 Blood Pressure 134/70 Pulse Oximetry 99 Oxygen Delivery Method Room Air BMI result Body Mass Index 27.8 Labs 11/17/22 08:25 Labs: Laboratory Results - last 48 hr 11/17/22 08:25 Sodium 140 Potassium 4.2 Chloride 107 Carbon Dioxide 26 Anion Gap 11 L BUN 15 Creatinine 0.72 Estim Creat Clear Calc 174.4 Estimated GFR > 60 Fasting Glucose 90 Calcium 9.4 Total Bilirubin 0.3 AST 44 H ALT 77 H Alkaline Phosphatase 79 Total Protein 6.9 Albumin 3.9 Triglycerides 207 H Cholesterol 148 LDL Cholesterol, Calc 71 HDL Cholesterol 36 L Hep Bs Antigen Negative Hep Bs Antibody REACTIVE Hep B Core Total Ab Nonreactive Hepatitis C Ab (EIA) Reactive H HIV 1&2 Ab/P24 Ag 4thGn Nonreactive Medications Medications Current Medications Acetaminophen (Acetaminophen 325 Mg Tablet) 650 mg PO Q6H PRN PRN Reason: Headache/Pain Mild Scale (1-3) Last Admin: 11/16/22 11:14 Dose: 650 mg Al Hydroxide/Mg Hydroxide (Magnesium Hydrox/Alum Hydrox 30 Ml Oral.Susp) 30 ml PO Q6H PRN PRN Reason: Heartburn/Nausea Hydroxyzine HCl (Hydroxyzine Hcl 25 Mg Tablet) 25 mg PO Q6H PRN PRN Reason: Anxiety Last Admin: 11/16/22 11:14 Dose: 25 mg Magnesium Hydroxide (Milk Of Magnesia 30 Ml Oral.Susp) 30 ml PO DAILY PRN PRN Reason: Constipation Methadone HCl (Methadone Hcl 20 Mg/2 Ml Oral.Conc) 110 mg PO DAILY [facility] Last Admin: 11/18/22 08:01 Dose: 110 mg Nicotine (Nicotine 21 Mg Patch.Td24) 21 mg TRANSDERMA DAILY [facility] Last Admin: 11/18/22 08:03 Dose: 21 mg Nicotine Polacrilex (Nicotine Polacrilex Lozenge 4 Mg Lozenge) 4 mg BUCCAL Q2H PRN PRN Reason: Nicotine Cravings Last Admin: 11/18/22 20:43 Dose: 4 mg Olanzapine (Olanzapine 10 Mg Tablet) 10 mg PO DAILY [facility] Last Admin: 11/18/22 08:01 Dose: 10 mg Quetiapine Fumarate (Quetiapine Fumarate 25 Mg Tablet) 25 mg PO DAILY [facility] Last Admin: 11/18/22 08:01 Dose: 25 mg Trazodone HCl (Trazodone Hcl 100 Mg Tablet) 200 mg PO BEDTIME [facility] Last Admin: 11/18/22 20:43 Dose: 200 mg Allergies Allergies Allergy/AdvReac Type Severity Reaction Status Date / Time No Known Allergies Allergy Unverified 11/16/19 19:18 [No Known Allergies*] Assessment & Plan Assessment & Plan (1) Schizoaffective disorder, depressive type: Status: Acute Code(s): F25.1 - Schizoaffective disorder, depressive type (2) Opiate abuse, continuous: Status: Acute Code(s): F11.10 - Opioid abuse, uncomplicated (3) Cocaine abuse: Status: Acute Code(s): F14.10 - Cocaine abuse, uncomplicated (4) Cannabis abuse: Status: Acute Code(s): F12.10 - Cannabis abuse, uncomplicated Plan interview tomorrow contintue current meds, watch for withdrawl ? though on scheduled methadone- other things not likely to physically withdraw from very low dose antipsychotic for condition- 11/15 minor doses of medication so far unwilling to engage in care-though visible on unit and mileu 11/16: T/W and certified social workers in health care met with patient. Patient presents guarded during 1:1. Patient stated, I came to the hospital because the voices were getting worse and made me suicidal. Patient reports his voices are judgmental and makes me nervous around people . He reports his voices improve with substance use;states he would like a referral to a TSS or CSS program. He reports suicidal ideation with plan to OD. Denies HI. Reviewed medications risks/benefits; pt agreed to increase in zyprexa. Was offered a consult with monomer recovery operator and comprehensive care clinic; pt refused. Pt asked for HIV test. 11/17: Patient reports feeling depressed today; pt stated, I'm worried about the future. The winter is coming and I don't want to freeze. I want to work and have a place to stay . Patient reports passive suicidal ideation; pt stated, I wish I was but I wouldn't act on it . Denies HI/VH/AH. HIV results nonreactive; pt notified. 11/18 continue tx. no SI/HI. awaiting CSS. Reason for continued inpatient stay Substantial Risk for: harm to self Time Spent With Patient Time: Total time managing care of this patient today ____ minutes.
[2022-11-19 07:00] VITALS: BMI 28.7
[2022-11-19 08:05] VITALS: BP 105/56; PULSE 62; RESP 18; TEMP 36.1; O2SAT 98
[2022-11-19] MEDS: methADONE HCl 20 MG/2 ML ORAL.CONC 110 MG PO (08:11)
[2022-11-19] MEDS: OLANZapine 10 MG TABLET PO (08:12)
[2022-11-19] MEDS: QUEtiapine Fumarate 25 MG TABLET PO (08:12)
[2022-11-19] MEDS: Nicotine 21 MG PATCH.TD24 TRANSDERMA (08:13)
[2022-11-19] MEDS: Nicotine Polacrilex Lozenge 4 MG LOZENGE BUCCAL ×4 (08:58→18:15)
[2022-11-20] MEDS: QUEtiapine Fumarate 25 MG TABLET PO (08:08)
[2022-11-20] MEDS: Nicotine 21 MG PATCH.TD24 TRANSDERMA (08:08)
[2022-11-20] MEDS: methADONE HCl 20 MG/2 ML ORAL.CONC 110 MG PO (08:08)
[2022-11-20] MEDS: OLANZapine 10 MG TABLET PO (08:08)
[2022-11-20 08:10] VITALS: BP 130/74; PULSE 87; RESP 18; TEMP 36.5; O2SAT 97
[2022-11-20] MEDS: Nicotine Polacrilex Lozenge 4 MG LOZENGE BUCCAL ×5 (08:16→20:09)
--- NOTE | 2022-11-20 15:31 | HO.PSYCHPN ---
Subjective Subjective Date of Service: 11/20/22 Reason For Visit: Opioid Use D/O w/ perpetual disturbances, Stimuli Subjective Notes: Conditional Voluntary Interim History: Pt denies any concerns. He denies SI/HI. he reports he is waiting for [facility] bed. He is visible on the unit. He does not attend groups. Review of Systems Review of Systems He declined to answer Constitutional: Reports as per HPI Eyes: Reports as per HPI Reports as per HPI Cardiovascular: Reports as per HPI Respiratory: Reports as per HPI Gastrointestinal: Reports as per HPI Genitourinary: Reports as per HPI Musculoskeletal: Reports as per HPI Skin/Breast: Reports as per HPI Reports as per HPI Psychiatric: Reports as per HPI Endocrine: Reports as per HPI Hematologic/Lymphatic: Reports as per HPI Allergic/Immunologic: Reports as per HPI Mental Status Exam Mental Status Exam Patient Appearance: Disheveled and Unkempt Patient Orientation: Person, Place and Time Level of Consciousness: Drowsy Patient Behavior: Guarded, Resistive to Care, Avoidant and Uncooperative Mood Description: Angry Affect Description: Labile Ability to Follow Directions: Poor Speech Pattern: Poor Articulation Diagnostics Vital Signs (24Hr): Vital Signs - 24 hr 11/20/22 08:10 Temperature 97.7 F Pulse Rate 87 Respiratory Rate 18 Blood Pressure 130/74 Pulse Oximetry 97 Oxygen Delivery Method Room Air BMI result Body Mass Index 28.7 Labs 11/17/22 08:25 Medications Medications Current Medications Acetaminophen (Acetaminophen 325 Mg Tablet) 650 mg PO Q6H PRN PRN Reason: Headache/Pain Mild Scale (1-3) Last Admin: 11/16/22 11:14 Dose: 650 mg Al Hydroxide/Mg Hydroxide (Magnesium Hydrox/Alum Hydrox 30 Ml Oral.Susp) 30 ml PO Q6H PRN PRN Reason: Heartburn/Nausea Hydroxyzine HCl (Hydroxyzine Hcl 25 Mg Tablet) 25 mg PO Q6H PRN PRN Reason: Anxiety Last Admin: 11/16/22 11:14 Dose: 25 mg Magnesium Hydroxide (Milk Of Magnesia 30 Ml Oral.Susp) 30 ml PO DAILY PRN PRN Reason: Constipation Methadone HCl (Methadone Hcl 20 Mg/2 Ml Oral.Conc) 110 mg PO DAILY [facility] Last Admin: 11/20/22 08:08 Dose: 110 mg Nicotine (Nicotine 21 Mg Patch.Td24) 21 mg TRANSDERMA DAILY [facility] Last Admin: 11/20/22 08:08 Dose: 21 mg Nicotine Polacrilex (Nicotine Polacrilex Lozenge 4 Mg Lozenge) 4 mg BUCCAL Q2H PRN PRN Reason: Nicotine Cravings Last Admin: 11/20/22 13:19 Dose: 4 mg Olanzapine (Olanzapine 10 Mg Tablet) 10 mg PO DAILY [facility] Last Admin: 11/20/22 08:08 Dose: 10 mg Quetiapine Fumarate (Quetiapine Fumarate 25 Mg Tablet) 25 mg PO DAILY [facility] Last Admin: 11/20/22 08:08 Dose: 25 mg Trazodone HCl (Trazodone Hcl 100 Mg Tablet) 200 mg PO BEDTIME [facility] Last Admin: 11/19/22 23:29 Dose: Not Given Allergies Allergies Allergy/AdvReac Type Severity Reaction Status Date / Time No Known Allergies Allergy Unverified 11/16/19 19:18 [No Known Allergies*] Assessment & Plan Assessment & Plan (1) Schizoaffective disorder, depressive type: Status: Acute Code(s): F25.1 - Schizoaffective disorder, depressive type (2) Opiate abuse, continuous: Status: Acute Code(s): F11.10 - Opioid abuse, uncomplicated (3) Cocaine abuse: Status: Acute Code(s): F14.10 - Cocaine abuse, uncomplicated (4) Cannabis abuse: Status: Acute Code(s): F12.10 - Cannabis abuse, uncomplicated Plan interview tomorrow contintue current meds, watch for withdrawl ? though on scheduled methadone- other things not likely to physically withdraw from very low dose antipsychotic for condition- 11/15 minor doses of medication so far unwilling to engage in care-though visible on unit and mileu 11/16: T/W and social welfare clerk met with patient. Patient presents guarded during 1:1. Patient stated, I came to the hospital because the voices were getting worse and made me suicidal. Patient reports his voices are judgmental and makes me nervous around people . He reports his voices improve with substance use;states he would like a referral to a TSS or CSS program. He reports suicidal ideation with plan to OD. Denies HI. Reviewed medications risks/benefits; pt agreed to increase in zyprexa. Was offered a consult with silver recovery operator and comprehensive care clinic; pt refused. Pt asked for HIV test. 11/17: Patient reports feeling depressed today; pt stated, I'm worried about the future. The winter is coming and I don't want to freeze. I want to work and have a place to stay . Patient reports passive suicidal ideation; pt stated, I wish I was but I wouldn't act on it . Denies HI/VH/AH. HIV results nonreactive; pt notified. 11/18 continue tx. no SI/HI. awaiting CSS. 11/19 continue tx 11/20 continue tx Reason for continued inpatient stay Substantial Risk for: inability to function Time Spent With Patient Time: Total time managing care of this patient today ____ minutes.
[2022-11-20 19:27] VITALS: BP 124/73; PULSE 72; RESP 16; TEMP 36.6; O2SAT 98
[2022-11-20] MEDS: traZODone HCL 100 MG TABLET 200 MG PO (20:08)
[2022-11-21] MEDS: methADONE HCl 20 MG/2 ML ORAL.CONC 110 MG PO (08:43)
[2022-11-21] MEDS: QUEtiapine Fumarate 25 MG TABLET PO (08:44)
[2022-11-21] MEDS: OLANZapine 10 MG TABLET PO (08:44)
[2022-11-21] MEDS: Nicotine 21 MG PATCH.TD24 TRANSDERMA (08:45)
[2022-11-21] MEDS: Nicotine Polacrilex Lozenge 4 MG LOZENGE BUCCAL ×5 (10:12→20:24)
--- NOTE | 2022-11-21 11:19 | HO.PSYCHPN ---
Subjective Subjective Date of Service: 11/21/22 Reason For Visit: Opioid Use D/O w/ perpetual disturbances, Stimuli Interim History: Pt is generally irritable. He complains about multiple things on the unit including lack of activities, food portions, having to share the TVZ room with visitors, the frequency of his nicotine replacement and wanting orange sorbets as a snack. He denies SI. Slept OK. Review of Systems Review of Systems He declined to answer Constitutional: Reports as per HPI Eyes: Reports as per HPI Reports as per HPI Cardiovascular: Reports as per HPI Respiratory: Reports as per HPI Gastrointestinal: Reports as per HPI Genitourinary: Reports as per HPI Musculoskeletal: Reports as per HPI Skin/Breast: Reports as per HPI Reports as per HPI Psychiatric: Reports as per HPI Endocrine: Reports as per HPI Hematologic/Lymphatic: Reports as per HPI Allergic/Immunologic: Reports as per HPI Mental Status Exam Mental Status Exam Narrative: Pt is alert and oriented; behavior is cooperative and calm; dressed in casual attire; mood is described as better ; eye contact appropriate; Speech is normal rate, volume and prosody and not pressured; no psychomotor agitation/retardation present; thought process is organized and goal directed; Thought content is on tx; otherwise pertinent to relevant topics and without any delusional content, paranoid ideations or grandiosity; denies HI. Pt reports passive suicidal ideation. There is no evidence of perceptual disturbance. Patients insight and judgment are poor. Patient Appearance: Disheveled and Unkempt Patient Orientation: Person, Place and Time Level of Consciousness: Drowsy Patient Behavior: Guarded, Resistive to Care, Avoidant and Uncooperative Mood Description: Angry Affect Description: Labile Ability to Follow Directions: Poor Speech Pattern: Poor Articulation Diagnostics Vital Signs (24Hr): Vital Signs - 24 hr 11/20/22 19:27 Temperature 97.8 F Pulse Rate 72 Respiratory Rate 16 Blood Pressure 124/73 Pulse Oximetry 98 Oxygen Delivery Method Room Air BMI result Body Mass Index 28.7 Labs 11/17/22 08:25 Medications Medications Current Medications Acetaminophen (Acetaminophen 325 Mg Tablet) 650 mg PO Q6H PRN PRN Reason: Headache/Pain Mild Scale (1-3) Last Admin: 11/16/22 11:14 Dose: 650 mg Al Hydroxide/Mg Hydroxide (Magnesium Hydrox/Alum Hydrox 30 Ml Oral.Susp) 30 ml PO Q6H PRN PRN Reason: Heartburn/Nausea Hydroxyzine HCl (Hydroxyzine Hcl 25 Mg Tablet) 25 mg PO Q6H PRN PRN Reason: Anxiety Last Admin: 11/16/22 11:14 Dose: 25 mg Magnesium Hydroxide (Milk Of Magnesia 30 Ml Oral.Susp) 30 ml PO DAILY PRN PRN Reason: Constipation Methadone HCl (Methadone Hcl 20 Mg/2 Ml Oral.Conc) 110 mg PO DAILY [facility] Last Admin: 11/21/22 08:43 Dose: 110 mg Nicotine (Nicotine 21 Mg Patch.Td24) 21 mg TRANSDERMA DAILY [facility] Last Admin: 11/21/22 08:45 Dose: 21 mg Nicotine Polacrilex (Nicotine Polacrilex Lozenge 4 Mg Lozenge) 4 mg BUCCAL Q2H PRN PRN Reason: Nicotine Cravings Last Admin: 11/21/22 10:12 Dose: 4 mg Olanzapine (Olanzapine 10 Mg Tablet) 10 mg PO DAILY [facility] Last Admin: 11/21/22 08:44 Dose: 10 mg Quetiapine Fumarate (Quetiapine Fumarate 25 Mg Tablet) 25 mg PO DAILY [facility] Last Admin: 11/21/22 08:44 Dose: 25 mg Trazodone HCl (Trazodone Hcl 100 Mg Tablet) 200 mg PO BEDTIME [facility] Last Admin: 11/20/22 20:08 Dose: 200 mg Allergies Allergies Allergy/AdvReac Type Severity Reaction Status Date / Time No Known Allergies Allergy Unverified 11/16/19 19:18 [No Known Allergies*] Assessment & Plan Assessment & Plan (1) Schizoaffective disorder, depressive type: Status: Acute Code(s): F25.1 - Schizoaffective disorder, depressive type (2) Opiate abuse, continuous: Status: Acute Code(s): F11.10 - Opioid abuse, uncomplicated (3) Cocaine abuse: Status: Acute Code(s): F14.10 - Cocaine abuse, uncomplicated (4) Cannabis abuse: Status: Acute Code(s): F12.10 - Cannabis abuse, uncomplicated Plan interview tomorrow contintue current meds, watch for withdrawl ? though on scheduled methadone- other things not likely to physically withdraw from very low dose antipsychotic for condition- 11/15 minor doses of medication so far unwilling to engage in care-though visible on unit and [facility] 11/16: T/W and social worker clinical met with patient. Patient presents guarded during 1:1. Patient stated, I came to the hospital because the voices were getting worse and made me suicidal. Patient reports his voices are judgmental and makes me nervous around people . He reports his voices improve with substance use;states he would like a referral to a TSS or CSS program. He reports suicidal ideation with plan to OD. Denies HI. Reviewed medications risks/benefits; pt agreed to increase in zyprexa. Was offered a consult with instructional coach and comprehensive care clinic; pt refused. Pt asked for HIV test. 11/17: Patient reports feeling depressed today; pt stated, I'm worried about the future. The winter is coming and I don't want to freeze. I want to work and have a place to stay . Patient reports passive suicidal ideation; pt stated, I wish I was but I wouldn't act on it . Denies HI/VH/AH. HIV results nonreactive; pt notified. 11/18 continue tx. no SI/HI. awaiting CSS. 11/21: Continue current treatment plan. Reason for continued inpatient stay Substantial Risk for: inability to function and rapid decompensation Time Spent With Patient Time: Total time managing care of this patient today ____ minutes.
[2022-11-21] MEDS: hydrOXYzine HCL 25 MG TABLET PO (13:14)
[2022-11-21 19:48] VITALS: BP 127/77; PULSE 78; RESP 18; TEMP 36.4; O2SAT 99
[2022-11-21] MEDS: traZODone HCL 100 MG TABLET 200 MG PO (19:50)
[2022-11-22] MEDS: QUEtiapine Fumarate 25 MG TABLET PO (08:27)
[2022-11-22] MEDS: OLANZapine 10 MG TABLET PO (08:27)
[2022-11-22] MEDS: methADONE HCl 20 MG/2 ML ORAL.CONC 110 MG PO (08:28)
[2022-11-22] MEDS: Nicotine 21 MG PATCH.TD24 TRANSDERMA (08:29)
[2022-11-22] MEDS: Nicotine Polacrilex Lozenge 4 MG LOZENGE BUCCAL ×4 (08:31→18:33)
--- NOTE | 2022-11-22 13:14 | HO.PSYCHPN ---
Subjective Subjective Date of Service: 11/22/22 Reason For Visit: Opioid Use D/O w/ perpetual disturbances, Stimuli Interim History: Pt is generally irritable. He was approached by this short story writer, and when asked how he feels today he replies I am pissed off and walks off. He complains about multiple things on the unit including lack of activities, food portions, having to share the TV room with visitors and other patients. He denies SI. Slept OK. Review of Systems Review of Systems He declined to answer Constitutional: Reports as per HPI Eyes: Reports as per HPI Reports as per HPI Cardiovascular: Reports as per HPI Respiratory: Reports as per HPI Gastrointestinal: Reports as per HPI Genitourinary: Reports as per HPI Musculoskeletal: Reports as per HPI Skin/Breast: Reports as per HPI Reports as per HPI Psychiatric: Reports as per HPI Endocrine: Reports as per HPI Hematologic/Lymphatic: Reports as per HPI Allergic/Immunologic: Reports as per HPI Mental Status Exam Mental Status Exam Narrative: Pt is alert and oriented; behavior is cooperative and calm; dressed in casual attire; mood is described as better ; eye contact appropriate; Speech is normal rate, volume and prosody and not pressured; no psychomotor agitation/retardation present; thought process is organized and goal directed; Thought content is on tx; otherwise pertinent to relevant topics and without any delusional content, paranoid ideations or grandiosity; denies HI. Pt reports passive suicidal ideation. There is no evidence of perceptual disturbance. Patients insight and judgment are poor. Patient Appearance: Disheveled and Unkempt Patient Orientation: Person, Place and Time Level of Consciousness: Drowsy Patient Behavior: Guarded, Resistive to Care, Avoidant and Uncooperative Mood Description: Angry Affect Description: Labile Ability to Follow Directions: Poor Speech Pattern: Poor Articulation Diagnostics Vital Signs (24Hr): Vital Signs - 24 hr 11/21/22 19:48 Temperature 97.6 F Pulse Rate 78 Respiratory Rate 18 Blood Pressure 127/77 Pulse Oximetry 99 Oxygen Delivery Method Room Air BMI result Body Mass Index 28.7 Labs 11/17/22 08:25 Medications Medications Current Medications Acetaminophen (Acetaminophen 325 Mg Tablet) 650 mg PO Q6H PRN PRN Reason: Headache/Pain Mild Scale (1-3) Last Admin: 11/16/22 11:14 Dose: 650 mg Al Hydroxide/Mg Hydroxide (Magnesium Hydrox/Alum Hydrox 30 Ml Oral.Susp) 30 ml PO Q6H PRN PRN Reason: Heartburn/Nausea Hydroxyzine HCl (Hydroxyzine Hcl 25 Mg Tablet) 25 mg PO Q6H PRN PRN Reason: Anxiety Last Admin: 11/21/22 13:14 Dose: 25 mg Magnesium Hydroxide (Milk Of Magnesia 30 Ml Oral.Susp) 30 ml PO DAILY PRN PRN Reason: Constipation Methadone HCl (Methadone Hcl 20 Mg/2 Ml Oral.Conc) 110 mg PO DAILY [facility] Last Admin: 11/22/22 08:28 Dose: 110 mg Nicotine (Nicotine 21 Mg Patch.Td24) 21 mg TRANSDERMA DAILY [facility] Last Admin: 11/22/22 08:29 Dose: 21 mg Nicotine Polacrilex (Nicotine Polacrilex Lozenge 4 Mg Lozenge) 4 mg BUCCAL Q2H PRN PRN Reason: Nicotine Cravings Last Admin: 11/22/22 10:53 Dose: 4 mg Olanzapine (Olanzapine 10 Mg Tablet) 10 mg PO DAILY [facility] Last Admin: 11/22/22 08:27 Dose: 10 mg Quetiapine Fumarate (Quetiapine Fumarate 25 Mg Tablet) 25 mg PO DAILY [facility] Last Admin: 11/22/22 08:27 Dose: 25 mg Trazodone HCl (Trazodone Hcl 100 Mg Tablet) 200 mg PO BEDTIME [facility] Last Admin: 11/21/22 19:50 Dose: 200 mg Allergies Allergies Allergy/AdvReac Type Severity Reaction Status Date / Time No Known Allergies Allergy Unverified 11/16/19 19:18 [No Known Allergies*] Assessment & Plan Assessment & Plan (1) Schizoaffective disorder, depressive type: Status: Acute Code(s): F25.1 - Schizoaffective disorder, depressive type (2) Opiate abuse, continuous: Status: Acute Code(s): F11.10 - Opioid abuse, uncomplicated (3) Cocaine abuse: Status: Acute Code(s): F14.10 - Cocaine abuse, uncomplicated (4) Cannabis abuse: Status: Acute Code(s): F12.10 - Cannabis abuse, uncomplicated Plan interview tomorrow contintue current meds, watch for withdrawl ? though on scheduled methadone- other things not likely to physically withdraw from very low dose antipsychotic for condition- 11/15 minor doses of medication so far unwilling to engage in care-though visible on unit and [facility] 11/16: T/W and social worker school met with patient. Patient presents guarded during 1:1. Patient stated, I came to the hospital because the voices were getting worse and made me suicidal. Patient reports his voices are judgmental and makes me nervous around people . He reports his voices improve with substance use;states he would like a referral to a TSS or CSS program. He reports suicidal ideation with plan to OD. Denies HI. Reviewed medications risks/benefits; pt agreed to increase in zyprexa. Was offered a consult with acetone recovery worker and comprehensive care clinic; pt refused. Pt asked for HIV test. 11/17: Patient reports feeling depressed today; pt stated, I'm worried about the future. The winter is coming and I don't want to freeze. I want to work and have a place to stay . Patient reports passive suicidal ideation; pt stated, I wish I was but I wouldn't act on it . Denies HI/VH/AH. HIV results nonreactive; pt notified. 11/18 continue tx. no SI/HI. awaiting CSS. 11/21: Continue current treatment plan. 11/22: Continue current treatment plan Reason for continued inpatient stay Substantial Risk for: inability to function and rapid decompensation Time Spent With Patient Time: Total time managing care of this patient today ____ minutes.
[2022-11-22 18:00] VITALS: BP 134/83; PULSE 84; TEMP 36.6; O2SAT 97
[2022-11-22] MEDS: traZODone HCL 100 MG TABLET 200 MG PO (20:09)
--- NOTE | 2022-11-23 | ECG_ITS ---
Test Reason : ck qtc Blood Pressure : / mmHG Vent. Rate : 078 BPM Atrial Rate : 078 BPM P-R Int : 162 ms QRS Dur : 094 ms QT Int : 396 ms P-R-T Axes : 049 071 053 degrees QTc Int : 451 ms Normal sinus rhythm Normal ECG No previous ECGs available Referred By: Arcelia Barnes Electronically Signed By:BHAVNA STEIN
[2022-11-23] MEDS: OLANZapine 10 MG TABLET PO (08:17)
[2022-11-23] MEDS: methADONE HCl 20 MG/2 ML ORAL.CONC 110 MG PO (08:17)
[2022-11-23] MEDS: QUEtiapine Fumarate 25 MG TABLET PO (08:17)
[2022-11-23] MEDS: Nicotine 21 MG PATCH.TD24 TRANSDERMA (08:17)
--- NOTE | 2022-11-23 09:12 | P.PNPSI_ITS ---
Subjective Subjective Date of Service: 11/23/22 Reason For Visit: Opioid Use D/O w/ perpetual disturbances, Stimuli Subjective Notes: Conditional Voluntary Interim History: Pt reports he is sleeping and eating well. He has been in TV room. He does not attend assigned groups, often bothered when treatment team tries to meet with him as I don't need anything from you.' He denies SI/HI. No signs of VH/AH. Pt accepted to CSS- pending requirements to go to program. Review of Systems Review of Systems He declined to answer Constitutional: Reports as per HPI Eyes: Reports as per HPI Reports as per HPI Cardiovascular: Reports as per HPI Respiratory: Reports as per HPI Gastrointestinal: Reports as per HPI Genitourinary: Reports as per HPI Musculoskeletal: Reports as per HPI Skin/Breast: Reports as per HPI Reports as per HPI Psychiatric: Reports as per HPI Endocrine: Reports as per HPI Hematologic/Lymphatic: Reports as per HPI Allergic/Immunologic: Reports as per HPI Mental Status Exam Mental Status Exam Patient Appearance: Disheveled and Unkempt Patient Orientation: Person, Place and Time Level of Consciousness: Drowsy Patient Behavior: Guarded, Resistive to Care, Avoidant and Uncooperative Mood Description: Angry Affect Description: Labile Ability to Follow Directions: Poor Speech Pattern: Poor Articulation Diagnostics Vital Signs (24Hr): Vital Signs - 24 hr 11/22/22 18:00 Temperature 97.8 F Pulse Rate 84 Blood Pressure 134/83 Pulse Oximetry 97 Oxygen Delivery Method Room Air BMI result Body Mass Index 28.7 Labs 11/17/22 08:25 Medications Medications Current Medications Acetaminophen (Acetaminophen 325 Mg Tablet) 650 mg PO Q6H PRN PRN Reason: Headache/Pain Mild Scale (1-3) Last Admin: 11/16/22 11:14 Dose: 650 mg Al Hydroxide/Mg Hydroxide (Magnesium Hydrox/Alum Hydrox 30 Ml Oral.Susp) 30 ml PO Q6H PRN PRN Reason: Heartburn/Nausea Hydroxyzine HCl (Hydroxyzine Hcl 25 Mg Tablet) 25 mg PO Q6H PRN PRN Reason: Anxiety Last Admin: 11/21/22 13:14 Dose: 25 mg Magnesium Hydroxide (Milk Of Magnesia 30 Ml Oral.Susp) 30 ml PO DAILY PRN PRN Reason: Constipation Methadone HCl (Methadone Hcl 20 Mg/2 Ml Oral.Conc) 110 mg PO DAILY [facility] Last Admin: 11/23/22 08:17 Dose: 110 mg Nicotine (Nicotine 21 Mg Patch.Td24) 21 mg TRANSDERMA DAILY [facility] Last Admin: 11/23/22 08:17 Dose: 21 mg Nicotine Polacrilex (Nicotine Polacrilex Lozenge 4 Mg Lozenge) 4 mg BUCCAL Q2H PRN PRN Reason: Nicotine Cravings Last Admin: 11/22/22 18:33 Dose: 4 mg Olanzapine (Olanzapine 10 Mg Tablet) 10 mg PO DAILY [facility] Last Admin: 11/23/22 08:17 Dose: 10 mg Quetiapine Fumarate (Quetiapine Fumarate 25 Mg Tablet) 25 mg PO DAILY [facility] Last Admin: 11/23/22 08:17 Dose: 25 mg Trazodone HCl (Trazodone Hcl 100 Mg Tablet) 200 mg PO BEDTIME [facility] Last Admin: 11/22/22 20:09 Dose: 200 mg Allergies Allergies Allergy/AdvReac Type Severity Reaction Status Date / Time No Known Allergies Allergy Unverified 11/16/19 19:18 [No Known Allergies*] Assessment & Plan Assessment & Plan (1) MDD (major depressive disorder), recurrent episode, moderate: Status: Acute Code(s): F33.1 - Major depressive disorder, recurrent, moderate (2) Opiate abuse, continuous: Status: Acute Code(s): F11.10 - Opioid abuse, uncomplicated (3) Cocaine abuse: Status: Acute Code(s): F14.10 - Cocaine abuse, uncomplicated (4) Cannabis abuse: Status: Acute Code(s): F12.10 - Cannabis abuse, uncomplicated Plan 11/15 minor doses of medication so far unwilling to engage in care-though [facility] 11/16: T/W and vp digital marketing social media and crm met with patient. Patient presents guarded during 1:1. Patient stated, I came to the hospital because the voices were getting worse and made me suicidal. Patient reports his voices are judgmental and makes me nervous around people . He reports his voices improve with substance use;states he would like a referral to a TSS or CSS program. He reports suicidal ideation with plan to OD. Denies HI. Reviewed medications risks/benefits; pt agreed to increase in zyprexa. Was offered a consult with recovery operator and comprehensive care clinic; pt refused. Pt asked for HIV test. 11/17: Patient reports feeling depressed today; pt stated, I'm worried about the future. The winter is coming and I don't want to freeze. I want to work and have a place to stay . Patient reports passive suicidal ideation; pt stated, I wish I was but I wouldn't act on it . Denies HI/VH/AH. HIV results nonreactive; pt notified. 11/18 continue tx. no SI/HI. awaiting CSS. 11/19 continue tx 11/20 continue tx 11/23- continue tx. Reason for continued inpatient stay Substantial Risk for: stable for discharge Time Spent With Patient Time: Total time managing care of this patient today ____ minutes.
[2022-11-23] MEDS: Nicotine Polacrilex Lozenge 4 MG LOZENGE BUCCAL ×5 (09:56→22:29)
[2022-11-23 18:00] VITALS: BP 128/72; PULSE 74; RESP 16; TEMP 36.1; O2SAT 97
[2022-11-23] MEDS: traZODone HCL 100 MG TABLET 200 MG PO (20:41)
[2022-11-24 08:58] VITALS: BP 125/67; PULSE 94; RESP 16; TEMP 36.2; O2SAT 97
[2022-11-24] MEDS: OLANZapine 10 MG TABLET PO (09:00)
[2022-11-24] MEDS: methADONE HCl 20 MG/2 ML ORAL.CONC 110 MG PO (09:00)
[2022-11-24] MEDS: Nicotine Polacrilex Lozenge 4 MG LOZENGE BUCCAL ×5 (09:00→20:50)
[2022-11-24] MEDS: QUEtiapine Fumarate 25 MG TABLET PO (09:00)
[2022-11-24] MEDS: Nicotine 21 MG PATCH.TD24 TRANSDERMA (09:04)
--- NOTE | 2022-11-24 14:52 | HO.PSYCHPN ---
Subjective Subjective Date of Service: 11/24/22 Reason For Visit: Opioid Use D/O w/ perpetual disturbances, Stimuli Subjective Notes: Conditional Voluntary Interim History: Pt continues to report that he is sleeping and eating well. He has been in TV room. He does not attend assigned groups, often bothered when treatment team tries to meet with him as I don't need anything from you.' He denies SI/HI. No signs of VH/AH. Pt accepted to [facility]- pending requirements to go to program. Review of Systems Review of Systems He declined to answer Constitutional: Reports as per HPI Eyes: Reports as per HPI Reports as per HPI Cardiovascular: Reports as per HPI Respiratory: Reports as per HPI Gastrointestinal: Reports as per HPI Genitourinary: Reports as per HPI Musculoskeletal: Reports as per HPI Skin/Breast: Reports as per HPI Reports as per HPI Psychiatric: Reports as per HPI Endocrine: Reports as per HPI Hematologic/Lymphatic: Reports as per HPI Allergic/Immunologic: Reports as per HPI Mental Status Exam Mental Status Exam Patient Appearance: Disheveled and Unkempt Patient Orientation: Person, Place and Time Level of Consciousness: Drowsy Patient Behavior: Guarded, Resistive to Care, Avoidant and Uncooperative Mood Description: Angry Affect Description: Labile Ability to Follow Directions: Poor Speech Pattern: Poor Articulation Diagnostics Vital Signs (24Hr): Vital Signs - 24 hr 11/23/22 18:00 11/24/22 08:58 Temperature 97 F 97.2 F Pulse Rate 74 94 Respiratory Rate 16 16 Blood Pressure 128/72 125/67 Pulse Oximetry 97 97 Oxygen Delivery Method Room Air Room Air BMI result Body Mass Index 28.7 Labs 11/17/22 08:25 Medications Medications Current Medications Acetaminophen (Acetaminophen 325 Mg Tablet) 650 mg PO Q6H PRN PRN Reason: Headache/Pain Mild Scale (1-3) Last Admin: 11/16/22 11:14 Dose: 650 mg Al Hydroxide/Mg Hydroxide (Magnesium Hydrox/Alum Hydrox 30 Ml Oral.Susp) 30 ml PO Q6H PRN PRN Reason: Heartburn/Nausea Hydroxyzine HCl (Hydroxyzine Hcl 25 Mg Tablet) 25 mg PO Q6H PRN PRN Reason: Anxiety Last Admin: 11/21/22 13:14 Dose: 25 mg Magnesium Hydroxide (Milk Of Magnesia 30 Ml Oral.Susp) 30 ml PO DAILY PRN PRN Reason: Constipation Methadone HCl (Methadone Hcl 20 Mg/2 Ml Oral.Conc) 110 mg PO DAILY [facility] Last Admin: 11/24/22 09:00 Dose: 110 mg Nicotine (Nicotine 21 Mg Patch.Td24) 21 mg TRANSDERMA DAILY [facility] Last Admin: 11/24/22 09:04 Dose: 21 mg Nicotine Polacrilex (Nicotine Polacrilex Lozenge 4 Mg Lozenge) 4 mg BUCCAL Q2H PRN PRN Reason: Nicotine Cravings Last Admin: 11/24/22 12:45 Dose: 4 mg Olanzapine (Olanzapine 10 Mg Tablet) 10 mg PO DAILY [facility] Last Admin: 11/24/22 09:00 Dose: 10 mg Quetiapine Fumarate (Quetiapine Fumarate 25 Mg Tablet) 25 mg PO DAILY [facility] Last Admin: 11/24/22 09:00 Dose: 25 mg Trazodone HCl (Trazodone Hcl 100 Mg Tablet) 200 mg PO BEDTIME [facility] Last Admin: 11/23/22 20:41 Dose: 200 mg Allergies Allergies Allergy/AdvReac Type Severity Reaction Status Date / Time No Known Allergies Allergy Unverified 11/16/19 19:18 [No Known Allergies*] Assessment & Plan Assessment & Plan (1) MDD (major depressive disorder), recurrent episode, moderate: Status: Acute Code(s): F33.1 - Major depressive disorder, recurrent, moderate (2) Opiate abuse, continuous: Status: Acute Code(s): F11.10 - Opioid abuse, uncomplicated (3) Cocaine abuse: Status: Acute Code(s): F14.10 - Cocaine abuse, uncomplicated (4) Cannabis abuse: Status: Acute Code(s): F12.10 - Cannabis abuse, uncomplicated Plan 11/15 minor doses of medication so far unwilling to engage in care-[facility]: T/W and case management social worker met with patient. Patient presents guarded during 1:1. Patient stated, I came to the hospital because the voices were getting worse and made me suicidal. Patient reports his voices are judgmental and makes me nervous around people . He reports his voices improve with substance use;states he would like a referral to a TSS or CSS program. He reports suicidal ideation with plan to OD. Denies HI. Reviewed medications risks/benefits; pt agreed to increase in zyprexa. Was offered a consult with career coach and comprehensive care clinic; pt refused. Pt asked for HIV test. 11/17: Patient reports feeling depressed today; pt stated, I'm worried about the future. The winter is coming and I don't want to freeze. I want to work and have a place to stay . Patient reports passive suicidal ideation; pt stated, I wish I was but I wouldn't act on it . Denies HI/VH/AH. HIV results nonreactive; pt notified. 11/18 continue tx. no SI/HI. awaiting CSS. 11/19 continue tx 11/20 continue tx 11/23- continue tx. 11/24 continue tx. Reason for continued inpatient stay Substantial Risk for: stable for discharge Time Spent With Patient Time: Total time managing care of this patient today ____ minutes.
[2022-11-24] MEDS: traZODone HCL 100 MG TABLET 200 MG PO (19:34)
[2022-11-24 20:20] VITALS: BP 126/69; PULSE 86; RESP 16; TEMP 36.9; O2SAT 99
[2022-11-25 09:00] VITALS: BP 134/65; PULSE 68; RESP 16; TEMP 36.3; O2SAT 98
[2022-11-25] MEDS: Nicotine 21 MG PATCH.TD24 TRANSDERMA (09:13)
[2022-11-25] MEDS: methADONE HCl 20 MG/2 ML ORAL.CONC 110 MG PO (09:13)
[2022-11-25] MEDS: OLANZapine 10 MG TABLET PO (09:13)
[2022-11-25] MEDS: QUEtiapine Fumarate 25 MG TABLET PO (09:13)
[2022-11-25] MEDS: Nicotine Polacrilex Lozenge 4 MG LOZENGE BUCCAL ×2 (09:28→12:03)
--- NOTE | 2022-11-25 16:26 | P.PNPSI_ITS ---
Subjective Subjective Date of Service: 11/25/22 Reason For Visit: Opioid Use D/O w/ perpetual disturbances, Stimuli Subjective Notes: Conditional Voluntary Interim History: Pt continues to report that he is sleeping and eating well. He has been in TV room. He does not attend assigned groups, often bothered when treatment team tries to meet with him as I don't need anything from you.' Pt tells this development writer you better write that I smile. Pt informed records only contained observed behaviors and he was also encouraged to attend assigned groups He denies SI/HI. No signs of VH/AH. Pt accepted to [facility]- pending requirements to go to program. Review of Systems Review of Systems He declined to answer Constitutional: Reports as per HPI Eyes: Reports as per HPI Reports as per HPI Cardiovascular: Reports as per HPI Respiratory: Reports as per HPI Gastrointestinal: Reports as per HPI Genitourinary: Reports as per HPI Musculoskeletal: Reports as per HPI Skin/Breast: Reports as per HPI Reports as per HPI Psychiatric: Reports as per HPI Endocrine: Reports as per HPI Hematologic/Lymphatic: Reports as per HPI Allergic/Immunologic: Reports as per HPI Mental Status Exam Mental Status Exam Narrative: Pt is alert and oriented; behavior is cooperative and calm; dressed in casual attire; mood is described as better ; eye contact appropriate; Speech is normal rate, volume and prosody and not pressured; no psychomotor agitation/retardation present; thought process is organized and goal directed; Thought content is on tx; otherwise pertinent to relevant topics and without any delusional content, paranoid ideations or grandiosity; denies HI. Pt reports passive suicidal ideation. There is no evidence of perceptual disturbance. Patients insight and judgment are poor. Diagnostics Vital Signs (24Hr): Vital Signs - 24 hr 11/24/22 20:20 11/25/22 09:00 Temperature 98.4 F 97.4 F Pulse Rate 86 68 Respiratory Rate 16 16 Blood Pressure 126/69 134/65 Pulse Oximetry 99 98 Oxygen Delivery Method Room Air Room Air BMI result Body Mass Index 28.7 Labs 11/17/22 08:25 Medications Medications Current Medications Acetaminophen (Acetaminophen 325 Mg Tablet) 650 mg PO Q6H PRN PRN Reason: Headache/Pain Mild Scale (1-3) Last Admin: 11/16/22 11:14 Dose: 650 mg Al Hydroxide/Mg Hydroxide (Magnesium Hydrox/Alum Hydrox 30 Ml Oral.Susp) 30 ml PO Q6H PRN PRN Reason: Heartburn/Nausea Hydroxyzine HCl (Hydroxyzine Hcl 25 Mg Tablet) 25 mg PO Q6H PRN PRN Reason: Anxiety Last Admin: 11/21/22 13:14 Dose: 25 mg Magnesium Hydroxide (Milk Of Magnesia 30 Ml Oral.Susp) 30 ml PO DAILY PRN PRN Reason: Constipation Methadone HCl (Methadone Hcl 20 Mg/2 Ml Oral.Conc) 110 mg PO DAILY [facility] Last Admin: 11/25/22 09:13 Dose: 110 mg Nicotine (Nicotine 21 Mg Patch.Td24) 21 mg TRANSDERMA DAILY [facility] Last Admin: 11/25/22 09:13 Dose: 21 mg Nicotine Polacrilex (Nicotine Polacrilex Lozenge 4 Mg Lozenge) 4 mg BUCCAL Q2H PRN PRN Reason: Nicotine Cravings Last Admin: 11/25/22 12:03 Dose: 4 mg Olanzapine (Olanzapine 10 Mg Tablet) 10 mg PO DAILY [facility] Last Admin: 11/25/22 09:13 Dose: 10 mg Quetiapine Fumarate (Quetiapine Fumarate 25 Mg Tablet) 25 mg PO DAILY [facility] Last Admin: 11/25/22 09:13 Dose: 25 mg Trazodone HCl (Trazodone Hcl 100 Mg Tablet) 200 mg PO BEDTIME [facility] Last Admin: 11/24/22 19:34 Dose: 200 mg Allergies Allergies Allergy/AdvReac Type Severity Reaction Status Date / Time No Known Allergies Allergy Unverified 11/16/19 19:18 [No Known Allergies*] Assessment & Plan Assessment & Plan (1) MDD (major depressive disorder), recurrent episode, moderate: Status: Acute Code(s): F33.1 - Major depressive disorder, recurrent, moderate (2) Opiate abuse, continuous: Status: Acute Code(s): F11.10 - Opioid abuse, uncomplicated (3) Cocaine abuse: Status: Acute Code(s): F14.10 - Cocaine abuse, uncomplicated (4) Cannabis abuse: Status: Acute Code(s): F12.10 - Cannabis abuse, uncomplicated Plan 11/15 minor doses of medication so far unwilling to engage in care-[facility]16: T/W and psych social worker met with patient. Patient presents guarded during 1:1. Patient stated, I came to the hospital because the voices were getting worse and made me suicidal. Patient reports his voices are judgmental and makes me nervous around people . He reports his voices improve with substance use;states he would like a referral to a TSS or [facility] program. He reports suicidal ideation with plan to OD. Denies HI. Reviewed medications risks/benefits; pt agreed to increase in zyprexa. Was offered a consult with resource recovery specialist and comprehensive care clinic; pt refused. Pt asked for HIV test. 11/17: Patient reports feeling depressed today; pt stated, I'm worried about the future. The winter is coming and I don't want to freeze. I want to work and have a place to stay . Patient reports passive suicidal ideation; pt stated, I wish I was but I wouldn't act on it . Denies HI/VH/AH. HIV results nonreactive; pt notified. 11/18 continue tx. no SI/HI. awaiting [facility]. 11/19 continue tx 11/20 continue tx 11/23- continue tx. 11/24 continue tx. 11/25 continue tx. Reason for continued inpatient stay Substantial Risk for: stable for discharge Time Spent With Patient Time: Total time managing care of this patient today ____ minutes.
[2022-11-25] MEDS: traZODone HCL 100 MG TABLET 200 MG PO (20:41)
[2022-11-26 06:00] VITALS: RESP 16
[2022-11-26] MEDS: methADONE HCl 20 MG/2 ML ORAL.CONC 110 MG PO (07:52)
[2022-11-26] MEDS: QUEtiapine Fumarate 25 MG TABLET PO (07:53)
[2022-11-26] MEDS: OLANZapine 10 MG TABLET PO (07:53)
[2022-11-26] MEDS: Nicotine Polacrilex Lozenge 4 MG LOZENGE BUCCAL ×2 (07:54→11:00)
[2022-11-26] MEDS: Nicotine 21 MG PATCH.TD24 TRANSDERMA (07:54)
[2022-11-26] MEDS: Naloxone HCl Nasal TAKE HOME 4 MG SPRAY 8 MG NOSTRILALT (09:44)
--- NOTE | 2022-11-26 09:55 | P.DS_ITS ---
DS: Providers Provider Date of Service: 11/26/22 Date of admission: 11/14/22 00:59 Date of discharge: 11/26/22 Primary care physician: Unknown Physician Consults: 11/14/22 05:32 Consult to Hospitalist Routine Comment: Consulting Provider: Hospitalist Reason For Exam: medical h&p Attending physician on discharge: Edi Fowler Discharging clinician: Arcelia Barnes DS: Diagnosis Discharge Diagnosis (1) MDD (major depressive disorder), recurrent episode, moderate: Status: Acute (2) Opiate abuse, continuous: Status: Acute (3) Cocaine abuse: Status: Acute (4) Cannabis abuse: Status: Acute DS: Medications Discharge Medications Home Medications: Previous Rx's Medication Instructions Recorded methadone 10 mg/mL oral 110 mg (11 mL) PO DAILY #0 mL 11/26/22 concentrate (Methadose) nicotine (polacrilex) 4 mg buccal 4 mg buccal Q2H PRN Nicotine 11/26/22 lozenge Cravings #30 ea nicotine 21 mg/24 hr daily 21 mg transdermal DAILY #30 ea 11/26/22 transdermal patch olanzapine 10 mg tablet 10 mg PO DAILY #30 tabs 11/26/22 trazodone 100 mg tablet 200 mg (2 x 100 mg) PO BEDTIME #60 11/26/22 tabs Mental Status Exam Mental Status Exam Narrative: Pt is alert and oriented; behavior is cooperative and calm; dressed in casual attire; mood is described as better ; eye contact appropriate; Speech is normal rate, volume and prosody and not pressured; no psychomotor agitation/retardation present; thought process is organized and goal directed; Thought content is on tx; otherwise pertinent to relevant topics and without any delusional content, paranoid ideations or grandiosity; denies HI. Pt reports passive suicidal ideation. There is no evidence of perceptual disturbance. Patients insight and judgment are poor. DS: Summary Hospital Course Hospital Course: Mr. Jeffery is a 32 year-old male with hx of opioid use disorder, cocaine use disorder who self presented to [facility] ED reporting AH, vague SI. Utox positive for cocaine and opioids. He is also on methadone. On the unit, pt was admitted on a CV and placed on 15 minutes checks for safety. During his stay on the unit, pt minimally participated in any type of meaningful conversation about his treatment here on the unit. He was did not appear internally preoccupied nor he reported or it was noted any signs of delusions. He presented with some level of anxiety but otherwise his presentation was most consistent with a personality disorder in that he struggled to see other people's needs, or show any kind of empathy towards other peers or staff on the unit. Pt often demanding- including demanding to have his own private room, despite not being clinically indicated. He often used the TV room for himself and needed to be reminded that the use of that space is for others as well, which he did not seem to fully grasp. He often dismissed psychiatric provider stating that he did not need anything. He did not attend any assigned groups. He reported he wanted to transition to [facility] program to continue substance use treatment and he was accepted at [facility]. Pt presented as future oriented. He consistently advocated for his need, although in very maladaptive ways and clearly showing no awareness of others needs with complete lack of empathy. He was disruptive at times (demanding of staff, or intimidating peers to get single room), mostly to have his own needs met again in a very maladaptive and dysfunctional way. He did not required physical or chemical restraints. He denied SI/HI. I do not think his dx is schizoaffective disorder. He did not appear at any time as internally preo ccupied or with delusions, neither he presented with negative symptoms of schizophrenia. His mood was also not consistent with a depressed mood. He was given narcan at time of discharge. He was continued on olanzapine for mood and trazodone for sleep at time. He did request nicotine gum and patch, which was given to him. Time Spent with Patient Time attestation: Total time managing care of this patient today ____ minutes. Discharge Plan Discharge Anticipated Discharge Date/Time: 11/26/22 09:28 Patient Disposition: Home, Self-Care Discharge Diagnosis: MDD with psychosis OPioid use disorder Referrals: [facility] [Other] (Please utilize [facility] for walk in medical needs. ) Discharge Medications: New olanzapine 10 mg Tablet 10 mg PO DAILY Qty: 30 0RF trazodone 100 mg Tablet 200 mg PO BEDTIME Qty: 60 0RF nicotine 21 mg/24 hr Patch 24 Hour 21 mg transdermal DAILY Qty: 30 0RF methadone [Methadose] 10 mg/mL Concentrate 110 mg PO DAILY Qty: 0 0RF Rx Instructions: Partial Fill upon patient request. nicotine (polacrilex) 4 mg Lozenge 4 mg buccal Q2H PRN (Reason: Nicotine Cravings) Qty: 30 0RF Discontinued olanzapine 5 mg tablet 5 mg PO DAILY hydroxyzine HCl 50 mg tablet 50 mg PO BID PRN (Reason: Anxiety) trazodone 100 mg tablet 200 mg PO BEDTIME ibuprofen 600 mg tablet 400 mg PO BID PRN (Reason: pain) quetiapine 25 mg Tablet 25 mg PO DAILY Discharge Orders: Discharge Order (Routine); Ordered 11/26/22 Ordered By: Arcelia Barnes Diet: Regular diet Activity on Discharge: As tolerated Stand Alone Forms: Patient Portal Discharge page Care Plan Goals: 1. Maintain mood 2. No SI/HI 3. No signs of psychosis or delusions 4. Harm reduction- narcan given on discharge Health Concerns: Follow up with PCP for routine care Plan of Treatment: 1. Take medications as prescribed 2. Go to nearest ED or call 911 in event of emergency Assessment: Pt with euthymic affect. Future oriented. No SI/HI. no signs of psychosis or delusions. Pt sleeping and eating well. No aggression towards self or others.
== END 2022-11-26 11:49 | disposition home or self-care (01) | DRG 751 ==
PROVIDERS: Psychiatry & Neurology Psychiatry; Admitting Provider Psychiatry & Neurology Psychiatry; Visit Provider Social Worker
DX: F33.3 Major depressive disorder, recurrent, severe with psychotic symptoms (principal); R45.851 Suicidal ideations; F11.20 Opioid dependence, uncomplicated; F17.210 Nicotine dependence, cigarettes, uncomplicated; F14.10 Cocaine abuse, uncomplicated; Z71.6 Tobacco abuse counseling; Z79.899 Other long term (current) drug therapy; F12.10 Cannabis abuse, uncomplicated
CPT/HCPCS: 36415; 80053; 80061; 86704; 86706; 86803; 87340; 87389; 93005

== ENCOUNTER → 2022-11-14 00:59 | Outpatient (BNV) | payer OTHER, SELFPAY | PROVIDERS: Admitting Provider Psychiatry & Neurology Psychiatry; Visit Provider Internal Medicine | DX: Z02.2 Encounter for examination for admission to residential institution (principal) | CPT/HCPCS: 99429 ==

== ENCOUNTER → 2022-11-14 00:59 | Outpatient (BNV) | payer OTHER, SELFPAY | PROVIDERS: Admitting Provider Psychiatry & Neurology Psychiatry; Responsible Provider Registered Nurse; Visit Provider Registered Nurse | DX: F33.1 Major depressive disorder, recurrent, moderate (principal); F11.10 Opioid abuse, uncomplicated; F14.10 Cocaine abuse, uncomplicated; F12.10 Cannabis abuse, uncomplicated | CPT/HCPCS: 99231; 99232; 99238 ==

== ENCOUNTER 2022-12-16 16:51 | Emergency (ER) | payer OTHER, SELFPAY ==
[2022-12-16 17:00] VITALS: BP 130/71; PULSE 73; RESP 18; TEMP 36.9; O2SAT 96; BMI 28.7
--- NOTE | 2022-12-16 17:08 | ED.PSYCH ---
HPI - Psych General Chief Complaint: Psychiatric Symptoms Stated Complaint: crisis Time Seen by Provider: 12/16/22 17:27 Source: patient Mode of arrival: ambulatory Limitations: no limitations History of Present Illness HPI Narrative: patient presents with suicidal ideation, thinking about taking a drug overdose, he does not feel save at home complaint: suicidal ideation Duration: constant Related Data Previous Rx's Medication Instructions Recorded methadone 10 mg/mL oral 110 mg (11 mL) PO DAILY #0 mL 11/26/22 concentrate (Methadose) nicotine (polacrilex) 4 mg buccal 4 mg buccal Q2H PRN Nicotine 11/26/22 lozenge Cravings #30 ea nicotine 21 mg/24 hr daily 21 mg transdermal DAILY #30 ea 11/26/22 transdermal patch olanzapine 10 mg tablet 10 mg PO DAILY #30 tabs 11/26/22 trazodone 100 mg tablet 200 mg (2 x 100 mg) PO BEDTIME #60 11/26/22 tabs Allergies Allergy/AdvReac Type Severity Reaction Status Date / Time No Known Allergies Allergy Unverified 11/16/19 19:18 [No Known Allergies*] Review of Systems Review of Systems: Yes all other systems are reviewed and are negative Neurologic: Denies Sensory deficit (Neuro) [facility] Social History Social History Housing: House Do you presently have visiting nurse or other home services: No Patient Tobacco Use Status: Current everyday Tobacco user Tobacco use type: Cigarette Substance Use Type: Crack/Cocaine, Heroin and Marijuana Advance Directives: No Healthcare Proxy: No Guardian: No service: No Sexual orientation: Unable to collect Physical Exam Vital Signs: Vital Signs: Last Vital Signs Temp 98.5 F 12/17/22 03:42 Pulse 68 12/17/22 03:42 Resp 18 12/17/22 03:42 BP 114/59 L 12/17/22 03:42 Pulse Ox 98 12/17/22 03:42 O2 Del Method Room Air 12/17/22 03:42 BMI result Body Mass Index 28.7 Const: Other: slightly unkept diffuse tatoos Nutritional Appearance: average body habitus Orientation/consciousness: oriented to person Limitations: no limitations HEENT: Head: Yes normal to inspection Ears: external ears normal General nose exam: Normal external nose present Mouth: Normal oral and palatal mucosa present and oropharynx normal Throat: Yes posterior oropharynx normal Eyes: General: appearance normal, both eyes and all related structures Neck: Other: supple Neck: Yes normal visual inspection Chest: Chest palpation & inspection: normal inspection of the chest Resp: Auscultation: clear to auscultation bilaterally Cardio: Jugular venous distension: no JVD Rate: regular rate Rhythm: regular rhythm Heart sounds: S1 normal heart sound present and S2 normal heart sound present GI: Inspection: Yes normal to inspection Palpation (GI): Soft to palpation, nontender and No hepatosplenomegaly present Auscultation: normal bowel sounds : General: Yes no CVA tenderness Back/Spine/Pelvis: Back: no CVA tenderness Skin: General skin exam: no rashes or lesions noted Neuro: General: oriented to person Cranial nerves: Yes CN's II-XII intact bilaterally Motor exam (neuro): 5/5 motor strength present throughout Sensory Exam: No Sensory deficit (Neuro) Extrem: General: Yes normal to inspection Psych: Appearance: grossly normal Course Course Course Narrative: RME - 32 yo male with history of schizophrenia noncompliant w/ meds, polysubstance abuse on methadone, ongoing cocaine use, depression who presents to the ER for evaluation of SI w/ plan to overdose. History of overdoses in the past. Plan: medical clearance, CARE team evaluation Reevaluation(s) Reevaluation #1: Physician observation: patient placed in physician observation at 6pm. The reason is to see if his depression improves or he will need to be admitted to psych Time: 18:06 Reevaluation #2: Continue physician observation Patient has been in the emergency department for 14 hours, there are no reported incidents on the patient overnight. Presented with suicidal ideation. Patient's urine tox screen was positive cocaine, THC and fentanyl. patient's medications have been reconciled.Patient is on methadone . Medications were ordered. Patient has been seen by the care team and is in in-patient bed search. Patient will be kept in the emergency department Behavioral Health Unit until disposition can be obtained or patient's symptoms improve over time. Time: 06:52 Medications Administered Discontinued Medications Generic Name Dose Route Start Last Admin Trade Name Freq PRN Reason Stop Dose Admin Nicotine Polacrilex 4 mg 12/16/22 17:40 12/16/22 17:45 Nicotine Polacrilex Lozenge 4 Mg Lozenge BUCCAL 12/16/22 17:41 4 mg ONCE ONE Administration Medical Decision Making Differential Diagnosis Differential Diagnoses: The differential diagnosis associated with the presentation includes (depression, suicidal ideation, polysubstance abuse) Admission/Observation Consideration of admission/observation: Escalation of care including admission/observation considered (upon arrival patient was considered for admission) Consult Healthcare Provider Management of the patient was discussed with: Behavioral Health Provider Lab Data 12/16/22 20:17 12/16/22 20:17 Labs: Lab Results 12/16/22 12/16/22 Range/Units 17:43 20:17 WBC 8.7 (4.8-10.8) X10*3/uL RBC 4.75 (4.60-5.80) X10*6/uL Hgb 12.8 L (14.0-18.0) g/dl Hct 38.6 L (42.0-52.0) % MCV 81.3 (80.0-98.0) fL MCH 26.9 L (27.0-33.0) pg MCHC 33.2 (31.0-36.0) g/dl RDW 14.6 (11.0-16.0) % Plt Count 200 (160-400) X10*3/uL MPV 11.8 (9.4-12.4) fL Immature Gran % (Auto) 0.3 (0.0-0.4) % Neut % (Auto) 54.3 (45-73) % Lymph % (Auto) 33.7 (20-40) % [place] % (Auto) 9.7 (2-11) % Eos % (Auto) 1.7 (0-4) % Baso % (Auto) 0.3 (0-2) % Lymph # (Auto) 2.9 (1.2-4.9) X10*3/uL [place] # (Auto) 0.9 (0.1-1.2) X10*3/uL Eos # (Auto) 0.2 (0.0-0.4) X10*3/uL Baso # (Auto) 0.0 (0.0-0.2) X10*3/uL Abs Immat Gran (auto) 0.03 (0.00-0.03) X10*3/uL Absolute Neuts (auto) 4.7 (2.0-8.3) x10*3/uL Absolute Nucleated RBC 0.000 (0.0-0.012) X10*3/uL Nucleated RBC % (auto) 0.0 (0.0-0.2) /100WBC Sodium 140 (135-145) mmol/L Potassium 3.7 (3.3-5.1) mmol/L Chloride 102 (96-108) mmol/L Carbon Dioxide 27 (22-29) mmol/L Anion Gap 15 (12-20) BUN 19 H (9-16) mg/dL Creatinine 0.86 (0.5-1.4) mg/dL Estim Creat Clear Calc 159.7 Estimated GFR > 60 Random Glucose 92 (60-115) mg/dL Calcium 9.5 (8.4-10.2) mg/dL Magnesium 2.4 (1.6-2.6) mg/dL Total Bilirubin 0.5 (0.0-1.0) mg/dL Direct Bilirubin 0.2 (0.0-0.5) mg/dL AST 77 H (5-37) U/L ALT 88 H (0-40) U/L Alkaline Phosphatase 112 (39-117) U/L Total Protein 7.6 (6.5-8.0) g/dL Albumin 4.2 (3.5-5.0) g/dL Urine Color Dark Yellow Urine Appearance Clear Urine pH 5.5 (5.0-9.0) Ur Specific [place] >= 1.030 H (1.005-1.025) Urine Protein Negative (Neg-Trace) mg/dL Urine Glucose (UA) Negative (Negative) mg/dL Urine Ketones Trace (Negative) mg/dL Urine Blood Negative (Negative) Urine Nitrite Negative (Negative) Ur Leukocyte Esterase Negative (Negative) Urine Opiates Screen Not Detected (Not Detect) Urine Fentanyl Screen POSITIVE H (Not Detect) Ur Barbiturates Screen Not Detected (Not Detect) Ur Phencyclidine Scrn Not Detected (Not Detect) Ur Amphetamines Screen Not Detected (Not Detect) U Benzodiazepines Scrn Not Detected (Not Detect) Urine Cocaine Screen POSITIVE H (Not Detect) U Marijuana (THC) Screen POSITIVE H (Not Detect) Ethyl Alcohol < 10 mg/dL COVID-19 ([place]) Negative (Negative) COVID-19 Clin Com See Note Independent Historian Clinical information obtained from an independent historian. History obtained from or confirmed by: EMS Chronic Conditions Patient?s care impacted by: Other (psychiatric and polysubstance abuse) Social Determinants Patient?s care significantly limited by Social Determinants of Health including: Alcoholism and drug addiction in family Discharge Plan Discharge Clinical Impression: Suicidal ideation, Depression, Opiate abuse, continuous Patient Disposition: Still a Patient Prescriptions: No Action olanzapine 10 mg Tablet 10 mg PO DAILY Qty: 30 0RF trazodone 100 mg Tablet 200 mg PO BEDTIME Qty: 60 0RF nicotine 21 mg/24 hr Patch 24 Hour 21 mg transdermal DAILY Qty: 30 0RF methadone [Methadose] 10 mg/mL Concentrate 110 mg PO DAILY Qty: 0 0RF Rx Instructions: Partial Fill upon patient request. nicotine (polacrilex) 4 mg Lozenge 4 mg buccal Q2H PRN (Reason: Nicotine Cravings) Qty: 30 0RF Interventions: [place]-Suicide Risk Severity Scale Last Done: 12/17/22 05:12
[2022-12-16] MEDS: Nicotine Polacrilex Lozenge 4 MG LOZENGE BUCCAL (17:45)
[2022-12-16 17:52] LABS: Appearance Urine Clear; Color Urine Dark Yellow; Glucose Urine UA Negative (Negative); Leukocyte Esterase Urine Negative (Negative); Nitrite Urine Negative (Negative); PH 5.5 (5.0-9.0); Specific Gravity - Urine >= 1.030 (1.005-1.025); Urine Blood Negative (Negative); Urine Ketones Trace mg/dL (Negative); Urine Protein Negative (Neg-Trace)
[2022-12-16 18:02] LABS: Amphetamine Screen Urine Not Detected (Not Detect); Barbiturates, Urine Not Detected (Not Detect); Benzodiazepines Screen Urine Not Detected (Not Detect); Cannabinoid Screen Urine POSITIVE (Not Detect); Cocaine Screen Urine POSITIVE (Not Detect); Fentanyl, urine POSITIVE (Not Detect); Opiate Screen Urine Not Detected (Not Detect); Phencyclidine Screen Urine Not Detected (Not Detect)
[2022-12-16 18:06] LABS: COVID-19 Test Negative (Negative); IDNOW Serial# 08D9AD1C
[2022-12-16 20:22] LABS: MANUAL DIFF FLAG NO
[2022-12-16 20:31] LABS: Basophils Percent Auto 0.3 % (0-2); Eosinophils Absolute Auto 0.2 X10*3/uL (0.0-0.4); Eosinophils Percent Auto 1.7 % (0-4); Hematocrit 38.6 % (42.0-52.0); Hemoglobin 12.8 g/dl (14.0-18.0); Imm Gran Abs Auto 0.03 X10*3/uL (0.00-0.03); Imm Gran Pct Auto 0.3 % (0.0-0.4); Lymphocytes Absolute Auto 2.9 X10*3/uL (1.2-4.9); Lymphocytes Percent Auto 33.7 % (20-40); Mean Corpuscular HGB Conc 33.2 g/dl (31.0-36.0); Mean Corpuscular Hemoglobin 26.9 pg (27.0-33.0); Mean Corpuscular Volume 81.3 fL (80.0-98.0); Mean Platelet Volume 11.8 fL (9.4-12.4); Monocytes Absolute Auto 0.9 X10*3/uL (0.1-1.2); Monocytes Percent Auto 9.7 % (2-11); Neutrophils Absolute Auto 4.7 x10*3/uL (2.0-8.3); Neutrophils Percent Auto 54.3 % (45-73); Platelet Count 200 X10*3/uL (160-400); Red Blood Count 4.75 X10*6/uL (4.60-5.80); Red Cell Distribution Width 14.6 % (11.0-16.0); White Blood Count 8.7 X10*3/uL (4.8-10.8)
[2022-12-16 20:51] LABS: Alanine Aminotransferase 88 U/L (0-40); Albumin Level 4.2 g/dL (3.5-5.0); Alkaline Phosphatase 112 U/L (39-117); Anion Gap 15 (12-20); Aspartate Amino Transferase 77 U/L (5-37); Bilirubin Direct 0.2 mg/dL (0.0-0.5); Bilirubin Total 0.5 mg/dL (0.0-1.0); Blood Urea Nitrogen 19 mg/dL (9-16); Calcium 9.5 mg/dL (8.4-10.2); Carbon Dioxide 27 mmol/L (22-29); Chloride 102 mmol/L (96-108); Creatinine Clr Calc Pharmacy 159.7; Estimated Glomerular Filt Rate > 60; Ethanol < 10 mg/dL; Glucose Random 92 mg/dL (60-115); Magnesium 2.4 mg/dL (1.6-2.6); Potassium 3.7 mmol/L (3.3-5.1); Sodium 140 mmol/L (135-145); Total Protein 7.6 g/dL (6.5-8.0)
[2022-12-17 03:42] VITALS: BP 114/59; PULSE 68; RESP 18; TEMP 36.9; O2SAT 98
--- NOTE | 2022-12-17 05:25 | PC.NURSE ---
Patient slept though the night, no distress observed/reported, behavior non concerning, disposition per care team is section 12 inpatient bed search, med rec completed/pending provider's approval, pending methadone verification, VSS, will continue to monitor.
--- NOTE | 2022-12-17 07:50 | HE.PHANOTE ---
RE METHADONE PT GETS 115MG OF METHADONE FROM [facility] FOR [facility]. LAST DOSED 12/16 @1101 ELISABETH
[2022-12-17] MEDS: OLANZapine 10 MG TABLET PO (08:43)
[2022-12-17] MEDS: Nicotine 21 MG PATCH.TD24 TRANSDERMA (08:43)
[2022-12-17] MEDS: methADONE HCl 20 MG/2 ML ORAL.CONC 115 MG PO (08:44)
--- NOTE | 2022-12-17 09:36 | PC.NURSE ---
Methadone dose verified with [facility] Allen dosed at 115mg on 12/16/22 at 1101. Verification faxed to pharmacy.
[2022-12-17 12:15] VITALS: RESP 18
--- NOTE | 2022-12-17 16:08 | MHC.CARE ---
Pt has been referred to [facility]
--- NOTE | 2022-12-17 16:30 | PHA.MEDREC ---
Pharmacy Consult ? Medication Reconciliation Pharmacy has reviewed the medication reconciliation completed by nursing.
[2022-12-17 17:00] VITALS: RESP 18
--- NOTE | 2022-12-17 18:00 | MHC.CARE ---
[facility] calls and advises CARE Team that they are declining pt's referral for ACCS admission, re - they want pt to go to detox first.
--- NOTE | 2022-12-17 18:27 | PC.NURSE ---
Alejandro has been in his bed resting for most of the day. Requesting multiple snacks and eating 100% of meals. When asked if he is feeling safe Alejandro replied if I say yes will you kick me out cause I never get a chance to just lay in bed and watch TV I'm really enjoying this . No complaints of pain or discomfort. Staff will continue to monitor.
[2022-12-17 19:56] VITALS: BP 115/67; PULSE 72; RESP 16; TEMP 36.2; O2SAT 97
[2022-12-17] MEDS: traZODone HCL 100 MG TABLET 200 MG PO (20:27)
--- NOTE | 2022-12-18 04:11 | PC.NURSE ---
Patient slept though the night, no distress observed/reported, behavior non concerning, disposition per care team is changed from section 12 inpatient bed search to respite bed search, medication compliant, VSS, will continue to monitor.
--- NOTE | 2022-12-18 07:03 | PC.NURSE ---
patient appears to remain asleep at present respirations are even and unlabored patient appears in no distress.
--- NOTE | 2022-12-18 10:09 | MHC.CARE ---
Patient in review at [facility] for [facility] loc
--- NOTE | 2022-12-18 10:30 | MHC.CARE ---
[facility] calls and advises CARE Team that they are declining pt's referral for ACCS admission.
[2022-12-18] MEDS: Nicotine 21 MG PATCH.TD24 TRANSDERMA (10:31)
[2022-12-18] MEDS: methADONE HCl 20 MG/2 ML ORAL.CONC 115 MG PO (11:04)
[2022-12-18] MEDS: OLANZapine 10 MG TABLET PO (11:05)
== END 2022-12-18 14:41 | disposition home or self-care (01) ==
PROVIDERS: Physician Assistant; Emergency Provider Emergency Medicine Emergency Medical Services
DX: F33.1 Major depressive disorder, recurrent, moderate (principal); R45.851 Suicidal ideations; F11.10 Opioid abuse, uncomplicated; F14.10 Cocaine abuse, uncomplicated; F12.10 Cannabis abuse, uncomplicated; F17.210 Nicotine dependence, cigarettes, uncomplicated; Z11.52 Encounter for screening for COVID-19; Z20.822 Contact with and (suspected) exposure to COVID-19; Z79.899 Other long term (current) drug therapy; Z71.6 Tobacco abuse counseling
CPT/HCPCS: 80048; 80076; 80307; 81003; 83735; 85025; 87635; 99284; S9485

== ENCOUNTER 2023-04-11 12:23 | Emergency (ER) | payer OTHER, SELFPAY ==
[2023-04-11 12:27] VITALS: BP 138/72; PULSE 74; O2SAT 95
[2023-04-11 12:38] VITALS: BP 125/79; PULSE 71; RESP 16; TEMP 35.8; O2SAT 95; BMI 32.6
--- NOTE | 2023-04-11 12:41 | ED.GENADULT ---
HPI - General Adult General Chief complaint: General Medical Stated complaint: CAMPBELL,NAUSEA,?MED REFILL PER EMS Time Seen by Provider: 04/11/23 14:34 Source: patient and EMS Mode of arrival: EMS Limitations: no limitations History of Present Illness HPI narrative: Patient is a 32 year old assigned male at with a history of methadone use presenting to the emergency department today for his methadone dose. Patient states that he is getting 125mg of methadone through [facility] but he missed his dose today. Patient denies any dizziness, lightheadedness, abdominal pain, nausea, vomiting, fever, chills, blurry vision, double vision, loss of vision, chest pain, difficulty breathing, shortness of breath, back pain, night sweats, pain with urination, increased urinary frequency, increased urinary urgency, blood in his urine or stool, syncope or a near syncopal episode, recent trauma or falls, bowel incontinence, bladder incontinence, bowel retention, bladder retention, or any other complaints at this time. Severity: mild Relieving factors: none Exacerbating factors: none Associated symptoms: denies other symptoms Treatments prior to arrival: none Related Data Home Medications Medication Instructions Recorded Confirmed methadone 10 mg/mL oral 115 mg PO DAILY 12/17/22 12/17/22 concentrate (Methadose) Previous Rx's Medication Instructions Recorded nicotine (polacrilex) 4 mg buccal 4 mg buccal Q2H PRN Nicotine 11/26/22 lozenge Cravings #30 ea nicotine 21 mg/24 hr daily 21 mg transdermal DAILY #30 ea 11/26/22 transdermal patch olanzapine 10 mg tablet 10 mg PO DAILY #30 tabs 11/26/22 trazodone 100 mg tablet 200 mg (2 x 100 mg) PO BEDTIME #60 11/26/22 tabs Allergies Allergy/AdvReac Type Severity Reaction Status Date / Time No Known Allergies Allergy Verified 04/11/23 12:37 [No Known Allergies*] Review of Systems Constitutional: Constitutional: Reports no additional constitutional complaints, Denies chills, Denies fever(s) and Denies night sweats Eyes: Eyes: Reports no additional eye complaints, Denies blurry vision, Denies change in vision, Denies diplopia, Denies eye discharge, Denies loss of vision and Denies eye pain ENT: Denies dizziness Cardiovascular: Cardiovascular: Reports no additional cardiovascular complaints, Denies chest pain, Denies lightheadedness, Denies Loss of Consciousness and Denies dyspnea Respiratory: Respiratory: Reports no additional respiratory complaints and Denies dyspnea Gastrointestinal: Gastrointestinal: Reports no additional gastrointestinal complaints, Denies abdominal pain, Denies melena, Denies hematochezia, Denies change in bowel habits and Denies change in stool character Genitourinary: Genitourinary: Reports no additional male genitourinary complaints, Denies hematuria, Denies oliguria, Denies difficulty urinating, Denies dysuria, Denies urinary frequency, Denies urinary hesitancy, Denies urinary incontinence and Denies urinary urgency Musculoskeletal: Musculoskeletal: Reports no additional musculoskeletal complaints, Denies numbness and Denies tingling Neurologic: Denies dizziness, Denies loss of vision, Denies numbness and Denies tingling Psychiatric: Psychiatric: Reports no additional psychiatric complaints Endocrine: Endocrine: Reports no additional endocrine complaints Hematologic/Lymphatic: Hematologic/Lymphatic: Reports no additional hematologic/lymphatic complaints Allergic/Immunologic: Allergic/Immunologic: Reports no additional allergic/immunologic complaints PMFSH Past Medical History Attestation statement: The following information was validated with the patient. Source: old records reviewed and nursing notes reviewed Social History Social History Housing: House Do you presently have visiting nurse or other home services: No Patient Tobacco Use Status: Current everyday Tobacco user Tobacco use type: Cigarette Substance Use Type: Crack/Cocaine, Heroin and Marijuana Advance Directives: No service: No Sexual orientation: Unable to collect Physical Exam ED Vital Signs: Vital Signs - 24 hr 04/11/23 12:38 Temperature 96.5 F L Pulse Rate 71 Respiratory Rate 16 Blood Pressure 125/79 Pulse Oximetry 95 Oxygen Delivery Method Room Air BMI result Body Mass Index 32.6 Const General: cooperative, no acute distress, alert and awake Nutritional Appearance: well nourished Orientation/consciousness: patient oriented x3 Limitations: no limitations HENMT Head: Yes normal to inspection and Yes atraumatic Ears: hearing grossly normal bilaterally and external ears normal General nose exam: Normal external nose present, no nasal discharge noted and no epistaxis Face and sinus: Yes normal facial exam, No abrasion and No laceration Mouth: Normal oral and palatal mucosa present, no drooling and no muffled voice Eyes General: appearance normal, both eyes and all related structures Periorbital: periorbital findings normal Eyelids: Yes eyelids normal Conjunctivae: conjunctivae normal Pupils: Equal, round and reactive pupils present EOM: EOMs intact bilaterally Neck Neck: Yes normal visual inspection, Yes full ROM and Yes no lymphadenopathy Chest Chest palpation & inspection: normal inspection of the chest Resp Effort & Inspection: normal respiratory effort and able to speak in complete sentences GI Inspection: Yes normal to inspection Neuro General: patient oriented x3 and moves all extremities Cranial nerves: Yes Equal, round and reactive pupils present Cognition (Neuro): normal cognition Motor exam (neuro): 5/5 motor strength present throughout Sensory Exam: Normal double simultaneous stimulation for sensation Coordination: [id number] test normal Extrem General: Yes normal to inspection, Yes full ROM and Yes capillary refill normal Psych Appearance: grossly normal Mental Status: mental status grossly normal Affect: normal affect Attitude: cooperative Thought process: Normal thought process present Thought content: Normal thought content present Insight: Good insight present (Psych) Course Course Course Narrative: RME; 31-year-old male presents to ED requesting methadone dose. Patient has not had methadone dose for 2 days and missed going to the clinic today. Medications Administered Discontinued Medications Generic Name Dose Route Start Last Admin Trade Name Freq PRN Reason Stop Dose Admin Lorazepam 2 mg 04/11/23 14:50 04/11/23 16:30 Lorazepam 1 Mg Tablet PO 04/11/23 14:51 2 mg ONCE ONE Administration Methadone HCl 30 mg 04/11/23 14:50 04/11/23 16:30 Methadone Hcl 20 Mg/2 Ml Oral.Conc PO 04/11/23 14:51 30 mg ONCE ONE Administration Naloxone HCl 8 mg 04/11/23 16:34 04/11/23 16:43 Naloxone Hcl Nasal Take Home 4 Mg Means NOSTRILALT 04/11/23 16:35 8 mg ONCE ONE Administration Medical Decision Making Medical Decision Making MDM Narrative: Patient is a 32 year old assigned male at with a history of methadone use presenting to the emergency department today for his methadone dose. Patient's physical exam was unremarkable. I explained my physical exam findings to the patient. I answered all questions asked by the patient. Unfortunately, [facility] could not be reached to confirm the patient's dose. They were called 15 times with multiple messages left over the course of 3 hours. Patient received 30mg of Methadone and 2mg of PO Ativan which he stated helped his symptoms significantly. I stressed the importance of the patient taking his medication as prescribed. I stressed the importance of the patient following up with his primary care provider and with the dosing clinic tomorrow. I stressed the importance of the patient returning to the emergency department immediately if his symptoms were to worsen or if he were to develop any dizziness, shortness of breath, difficulty breathing, chest pain, blurry vision, loss of vision, nausea, vomiting, abdominal pain, fever, chills, back pain, or any other complaints. Patient verbalized agreement and understanding with this treatment plan and discharge. Differential Diagnosis Differential Diagnoses: The differential diagnosis associated with the presentation includes Methadone dosing Methadone use Methadone dose Admission/Observation Consideration of admission/observation: Escalation of care including admission/observation considered Patient would have been admitted to the hospital had his clinical presentation warranted hospital admission. Discharge Plan Discharge Clinical Impression: Methadone use Patient Disposition: Home, Self-Care Instructions: Opioid Use Disorder (ED) Additional Instructions: Follow up with your primary care provider. Return to the emergency department immediately if your symptoms worsen or if you develop any dizziness, shortness of breath, difficulty breathing, chest pain, blurry vision, loss of vision, nausea, vomiting, abdominal pain, fever, chills, back pain, or any other complaints. Prescriptions: No Action olanzapine 10 mg Tablet 10 mg PO DAILY Qty: 30 0RF trazodone 100 mg Tablet 200 mg PO BEDTIME Qty: 60 0RF nicotine 21 mg/24 hr Patch 24 Hour 21 mg transdermal DAILY Qty: 30 0RF nicotine (polacrilex) 4 mg Lozenge 4 mg buccal Q2H PRN (Reason: Nicotine Cravings) Qty: 30 0RF methadone [Methadose] 10 mg/mL concentrate 115 mg PO DAILY Rx Instructions: Verified with Sunil Maria. Last dose 115mgs on 12/16/22 at 1101 Referrals: [facility] [place]] (Call to establish and follow up with a primary care provider. If you already have a primary care provider, please follow up with them.) [facility] [[facility]] (Call to establish and follow up with a primary care provider. If you already have a primary care provider, please follow up with them.) [facility] [place]] (Call to establish and follow up with a primary care provider. If you already have a primary care provider, please follow up with them.) Interventions: ED Discharge Assessment Last Done: 04/11/23 17:02 Discharge Date/Time: 04/11/23 17:03 Print Language: Anguillan
[2023-04-11] MEDS: methADONE HCl 20 MG/2 ML ORAL.CONC 30 MG PO (16:30)
[2023-04-11] MEDS: LORazepam 1 MG TABLET 2 MG PO (16:30)
--- NOTE | 2023-04-11 16:37 | PC.NURSE ---
pt medicated per scheduled for transport back to [facility] [address] [facility]
[2023-04-11] MEDS: Naloxone HCl Nasal TAKE HOME 4 MG SPRAY 8 MG NOSTRILALT (16:43)
== END 2023-04-11 17:03 | disposition home or self-care (01) ==
PROVIDERS: Emergency Provider Emergency Medicine Emergency Medical Services
DX: R51.9 Headache, unspecified (principal); R11.2 Nausea with vomiting, unspecified; Z76.0 Encounter for issue of repeat prescription
CPT/HCPCS: 99282; 99283

== ENCOUNTER 2024-01-12 18:11 | Inpatient (IN) | payer OTHER, SELFPAY ==
[2024-01-12 18:38] VITALS: BP 103/73; PULSE 72; RESP 18; TEMP 36.6; O2SAT 97; BMI 32.5
--- NOTE | 2024-01-12 19:06 | PC.NURSE ---
patient appears to remain at rest presently respirations a re even and unlabored patient appears in no distress
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
[2024-01-12 20:00] LABS: MANUAL DIFF FLAG NO
[2024-01-12 20:01] LABS: Basophils Percent Auto 0.2 % (0-2); Hematocrit 41.8 % (42.0-52.0); Hemoglobin 14.3 g/dl (14.0-18.0); Imm Gran Abs Auto 0.03 X10*3/uL (0.00-0.03); Imm Gran Pct Auto 0.2 % (0.0-0.4); Lymphocytes Absolute Auto 1.3 X10*3/uL (1.2-4.9); Lymphocytes Percent Auto 10.4 % (20-40); Mean Corpuscular HGB Conc 34.2 g/dl (31.0-36.0); Mean Corpuscular Hemoglobin 28.4 pg (27.0-33.0); Mean Corpuscular Volume 82.9 fL (80.0-98.0); Mean Platelet Volume 12.3 fL (9.4-12.4); Monocytes Absolute Auto 0.4 X10*3/uL (0.1-1.2); Monocytes Percent Auto 3.3 % (2-11); Neutrophils Absolute Auto 10.4 x10*3/uL (2.0-8.3); Neutrophils Percent Auto 85.9 % (45-73); Platelet Count 155 X10*3/uL (160-400); Red Blood Count 5.04 X10*6/uL (4.60-5.80); Red Cell Distribution Width 14.1 % (11.0-16.0); White Blood Count 12.1 X10*3/uL (4.8-10.8)
[2024-01-12 20:20] LABS: Acetaminophen LAB < 3 mcg/mL (<30); Alanine Aminotransferase 32 U/L (0-40); Albumin Level 4.5 g/dL (3.5-5.0); Alkaline Phosphatase 108 U/L (39-117); Anion Gap 14 (12-20); Aspartate Amino Transferase 35 U/L (5-37); Bilirubin Total 0.9 mg/dL (0.0-1.0); Blood Urea Nitrogen 14 mg/dL (9-16); Calcium 9.4 mg/dL (8.4-10.2); Carbon Dioxide 22 mmol/L (22-29); Chloride 109 mmol/L (96-108); Creatinine Clr Calc Pharmacy 133.4; Estimated Glomerular Filt Rate > 60; Ethanol < 10 mg/dL; Glucose Random 112 mg/dL (60-115); Potassium 4.4 mmol/L (3.3-5.1); Salicylate < 5.0 mg/dL (15-30); Sodium 141 mmol/L (135-145); Total Protein 7.5 g/dL (6.5-8.0)
[2024-01-13 07:36] LABS: Amphetamine Screen Urine Not Detected (Not Detect); Barbiturates, Urine Not Detected (Not Detect); Benzodiazepines Screen Urine Not Detected (Not Detect); Buprenorphine Scr Not Detected (Not Detect); Cannabinoid Screen Urine POSITIVE (Not Detect); Cocaine Screen Urine Not Detected (Not Detect); Fentanyl, urine POSITIVE (Not Detect); Methadone Screen, Urine Positive (Not Detect); Opiate Screen Urine Not Detected (Not Detect); Oxycodone Screen Urine Not Detected (Not Detect); Phencyclidine Screen Urine Not Detected (Not Detect)
--- NOTE | 2024-01-13 09:19 | ECG_ITS ---
Test Reason : MEDICAL CLEARANCE Blood Pressure : / mmHG Vent. Rate : 053 BPM Atrial Rate : 053 BPM P-R Int : 180 ms QRS Dur : 100 ms QT Int : 462 ms P-R-T Axes : 050 053 050 degrees QTc Int : 433 ms Sinus bradycardia Otherwise normal ECG When compared with ECG of 23-NOV-2022 11:46, No significant change was found Referred By: Shirley Kirby Electronically Signed By:Kip Fernandez
--- NOTE | 2024-01-13 09:36 | HE.PHANOTE ---
Methadone confirmation form patient takes 125mg from [facility]. last dose 01/10 @ 0800
[2024-01-13] MEDS: Nicotine Polacrilex 2 MG GUM BUCCAL (09:54)
[2024-01-13] MEDS: methADONE HCl 20 MG/2 ML ORAL.CONC 125 MG PO (09:54)
[2024-01-13 12:41] VITALS: BP 100/57; PULSE 57; RESP 16; TEMP 36.8; O2SAT 97
[2024-01-13] MEDS: Nicotine Polacrilex 2 MG GUM 4 MG BUCCAL ×3 (15:27→20:14)
--- NOTE | 2024-01-13 15:28 | PC.NURSE ---
Assumed care of patient at 1445, patient appears to be in no apparent distress at this time, reporting to this RN I asked for fucking nicotine gum 4 hours ago but I fell asleep, I want it now . Pt provided with nicotine gum per APR. Pt reports man, yall just let us sleep all day, this is crazy . Patient aware of plan of care to go upstairs
[2024-01-13 17:29] VITALS: BP 136/88; PULSE 70; RESP 21; TEMP 36.7; O2SAT 96
[2024-01-13] MEDS: Nicotine 21 MG PATCH.TD24 TRANSDERMA (17:35)
[2024-01-13] MEDS: Acetaminophen 325 MG TABLET 650 MG PO (17:35)
[2024-01-13] MEDS: hydrOXYzine HCL 25 MG TABLET PO (17:36)
[2024-01-13] MEDS: LORazepam 1 MG TABLET 2 MG PO (18:04)
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
[2024-01-13 20:00] VITALS: BP 132/78; PULSE 79; O2SAT 96
[2024-01-13] MEDS: traZODone HCL 50 MG TABLET PO (20:13)
[2024-01-13] MEDS: LORazepam 1 MG TABLET PO (20:13)
--- NOTE | 2024-01-13 20:48 | PC.NURSE ---
This technical writer informed this patient that he would be woken for CIWA scoring at 0000 and 0400. He stated I lied. I haven't drank since I was 13. I just said that because I remembered that Libriums make you feel good. I need help. I don't want to sleep on the rocks in the cold. I need a place to be. But I want to kill myself every day, all the time. All these drug addicts get all this help, and someone who lost their job and is homeless can't get help. I don't wanna get up if I don't have to. Take those [referrring to CIWAs] out. I wanna refuse. This technical writer told the patient I can't do that, it's important to get vital signs and assess withdrawals. Patient turned and walked away while saying Fine! Just do 'em then!
--- NOTE | 2024-01-14 00:08 | PC.NURSE ---
Patient was sleeping when this repairer typewriter and [facility] [place] Villarreal approached to obtain vital signs and assess for CIWA/withdrawal. Patient had regular respirations before this repairer typewriter called his name to wake him. After repeating the patient's name three times, the patient raised his head and in a loud, irritated voice said I REFUSE. I'M REFUSING. This repairer typewriter and [facility] Phil left the room after the refusal.
[2024-01-14 04:00] VITALS: BP 110/65; PULSE 53; TEMP 36.3; O2SAT 95
[2024-01-14] MEDS: methADONE HCl 20 MG/2 ML ORAL.CONC 125 MG PO (08:06)
[2024-01-14] MEDS: Nicotine Polacrilex 2 MG GUM 4 MG BUCCAL ×2 (08:39→11:18)
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
[2024-01-14] MEDS: hydrOXYzine HCL 25 MG TABLET PO ×2 (10:01→21:55)
[2024-01-14] MEDS: LORazepam 1 MG TABLET PO (10:01)
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
--- NOTE | 2024-01-14 16:18 | MHC.RECOVRN ---
Pts AUDIT C deferred after pt reported to RN I lied. I haven't drank since I was 13. I just said that because I remembered that Libriums make you feel good. Pt has been irritable as well. Discussed with Shahana Hopkins APRN.
[2024-01-14] MEDS: LORazepam 1 MG TABLET 2 MG PO (21:55)
[2024-01-14] MEDS: Divalproex Sodium ER 500 MG TAB.ER.24H PO (21:55)
[2024-01-14] MEDS: traZODone HCL 50 MG TABLET PO (21:55)
[2024-01-14] MEDS: OLANZapine ODT 10 MG TAB.RAPDIS TRANSLINGU (21:55)
[2024-01-14] MEDS: Nicotine Polacrilex Lozenge 2 MG LOZENGE BUCCAL (22:18)
[2024-01-15] MEDS: methADONE HCl 20 MG/2 ML ORAL.CONC 125 MG PO (07:51)
[2024-01-15] MEDS: Thiamine HCL 100 MG TABLET PO (07:53)
[2024-01-15] MEDS: OLANZapine ODT 10 MG TAB.RAPDIS TRANSLINGU ×2 (07:53→21:15)
[2024-01-15] MEDS: Folic Acid 1 MG TABLET PO (07:53)
[2024-01-15 08:00] VITALS: RESP 16
--- NOTE | 2024-01-15 08:37 | HO.PSYCHPN ---
Subjective Subjective Date of Service: 01/15/24 Reason For Visit: Depression,Opiate Use Disorder,Polysubstance Abuse Subjective Notes: Conditional Voluntary Healthcare Proxy: No Guardianship: No Medical Problems Affecting Mental Status: No Interim History: Patient was seen and discussed in rounds today. Records and plans were reviewed. He has been eating and sleeping adequately. He has had some passive SI. Irritable but has had no outbursts or confrontations. He has not been attending groups or participating much. No active SI. No changes were made today Review of Systems Review of Systems Yes all other systems are reviewed and are negative Mental Status Exam Mental Status Exam Narrative: In today's visit he is alert, oriented and minimally interactive. He is having slurred speech. No eye contact. Affect is appropriate and irritable. No acute signs of psychosis. No active SI. Thought processes are slowed with no gross abnormalities. Judgment is intact. Diagnostics Vital Signs (24Hr): Vital Signs - 24 hr 01/15/24 08:00 Respiratory Rate 16 BMI result Body Mass Index 32.5 Labs 01/12/24 19:56 01/12/24 19:56 Medications Medications Current Medications Acetaminophen (Acetaminophen 325 Mg Tablet) 650 mg PO Q6H PRN PRN Reason: Headache/Pain Mild Scale (1-3) Last Admin: 01/13/24 17:35 Dose: 650 mg Al Hydroxide/Mg Hydroxide (Magnesium Hydrox/Alum Hydrox 30 Ml Oral.Susp) 30 ml PO Q6H PRN PRN Reason: Heartburn/Nausea Divalproex Sodium (Divalproex Sodium Er 500 Mg Tab.Er.24h) 500 mg PO BEDTIME [facility] Last Admin: 01/14/24 21:55 Dose: 500 mg Folic Acid (Folic Acid 1 Mg Tablet) 1 mg PO DAILY [facility] Last Admin: 01/15/24 07:53 Dose: 1 mg Hydroxyzine HCl (Hydroxyzine Hcl 25 Mg Tablet) 25 mg PO Q6H PRN PRN Reason: Anxiety Last Admin: 01/14/24 21:55 Dose: 25 mg Lorazepam (Lorazepam 1 Mg Tablet) 1 mg PO Q2H PRN PRN Reason: CIWA 6-10 Last Admin: 01/14/24 10:01 Dose: 1 mg Lorazepam (Lorazepam 1 Mg Tablet) 2 mg PO Q2H PRN PRN Reason: CIWA 11 and above Last Admin: 01/14/24 21:55 Dose: 2 mg Magnesium Hydroxide (Milk Of Magnesia 30 Ml Oral.Susp) 30 ml PO DAILY PRN PRN Reason: Constipation Methadone HCl (Methadone Hcl 20 Mg/2 Ml Oral.Conc) 125 mg PO DAILY [facility] Last Admin: 01/15/24 07:51 Dose: 125 mg Nicotine (Nicotine 21 Mg Patch.Td24) 21 mg TRANSDERMA DAILY PRN PRN Reason: nicotine cravings Last Admin: 01/13/24 17:35 Dose: 21 mg Nicotine Polacrilex (Nicotine Polacrilex Lozenge 2 Mg Lozenge) 2 mg BUCCAL Q2H PRN PRN Reason: Nicotine Cravings Last Admin: 01/14/24 22:18 Dose: 2 mg Nicotine Polacrilex (Nicotine Polacrilex 2 Mg Gum) 4 mg BUCCAL Q2H PRN PRN Reason: Nicotine Cravings Last Admin: 01/14/24 11:18 Dose: 4 mg Olanzapine (Olanzapine Odt 10 Mg Tab.Rapdis) 10 mg TRANSLINGU BID [facility] Last Admin: 01/15/24 07:53 Dose: 10 mg Olanzapine (Olanzapine 5 Mg Tablet) 5 mg PO Q4H PRN PRN Reason: psychosis, agitation,lability Thiamine HCl (Thiamine Hcl 100 Mg Tablet) 100 mg PO DAILY [facility] Last Admin: 01/15/24 07:53 Dose: 100 mg Trazodone HCl (Trazodone Hcl 50 Mg Tablet) 50 mg PO BEDTIME MRX1 PRN PRN Reason: Insomnia Last Admin: 01/14/24 21:55 Dose: 50 mg Allergies Allergies Allergy/AdvReac Type Severity Reaction Status Date / Time No Known Allergies Allergy Verified 01/12/24 18:40 [No Known Allergies*] Assessment & Plan Assessment & Plan (1) Schizophrenia: Status: Acute Code(s): F20.9 - Schizophrenia, unspecified (2) MDD (major depressive disorder), recurrent episode, moderate: Status: Acute Code(s): F33.1 - Major depressive disorder, recurrent, moderate (3) Antisocial personality disorder: Status: Acute Code(s): F60.2 - Antisocial personality disorder (4) Severe opioid use disorder on maintenance therapy: Status: Acute Code(s): F11.20 - Opioid dependence, uncomplicated (5) Cocaine abuse: Status: Acute Code(s): F14.10 - Cocaine abuse, uncomplicated Plan Schizophrenia, Recurrent Major Depression, Antisocial Personality Disorder, Opiate, Cocaine use disorders. Plan: Admit, CV, 15 minute checks Encourage milieu involvement Medication review Olanzapine 10 bid and 5 q 4 prn Depakote ER 500 mg hs Diagnostics as needed Collateral contacts Discharge planning. 01/14: Continue current regimen and plans. He is in need of proper discharge planning in light of being kicked out of [facility] because of aggressive behaviors. Reason for continued inpatient stay Substantial Risk for: harm to others and med/psych decompensation Time Spent With Patient Time: Total time managing care of this patient today ____ minutes.
[2024-01-15] MEDS: Divalproex Sodium ER 500 MG TAB.ER.24H PO (21:15)
[2024-01-15] MEDS: hydrOXYzine HCL 25 MG TABLET PO (21:15)
[2024-01-15] MEDS: traZODone HCL 50 MG TABLET PO (21:15)
[2024-01-15] MEDS: Nicotine Polacrilex Lozenge 2 MG LOZENGE BUCCAL (21:15)
[2024-01-16] MEDS: methADONE HCl 20 MG/2 ML ORAL.CONC 125 MG PO (07:31)
[2024-01-16 08:00] VITALS: RESP 18
[2024-01-16] MEDS: OLANZapine ODT 10 MG TAB.RAPDIS TRANSLINGU ×2 (08:13→20:01)
[2024-01-16] MEDS: Thiamine HCL 100 MG TABLET PO (08:13)
[2024-01-16] MEDS: Acetaminophen 325 MG TABLET 650 MG PO ×2 (08:13→20:00)
[2024-01-16] MEDS: Folic Acid 1 MG TABLET PO (08:13)
--- NOTE | 2024-01-16 08:58 | HO.PSYCHPN ---
Subjective Subjective Date of Service: 01/16/24 Reason For Visit: Depression,Opiate Use Disorder,Polysubstance Abuse Subjective Notes: Conditional Voluntary Healthcare Proxy: No Guardianship: No Medical Problems Affecting Mental Status: No Interim History: Patient was seen and discussed in rounds today. Records and plans were reviewed. He continues to be somewhat irritable but has been appropriate. No behavioral issues. He is not scoring on the CIWA and it will be discontinued. Continues to endorse depression and anxiety. He has been mostly in his room. No other changes were made today Review of Systems Review of Systems Yes all other systems are reviewed and are negative Mental Status Exam Mental Status Exam Narrative: In today's visit he is alert, oriented and minimally interactive. Normal speech. No eye contact. Affect is appropriate and irritable. No acute signs of psychosis. No active SI. Thought processes are slowed with no gross abnormalities. Judgment is mostly intact. Diagnostics Vital Signs (24Hr): Vital Signs - 24 hr 01/16/24 08:00 Respiratory Rate 18 BMI result Body Mass Index 32.5 Labs 01/12/24 19:56 01/12/24 19:56 Medications Medications Current Medications Acetaminophen (Acetaminophen 325 Mg Tablet) 650 mg PO Q6H PRN PRN Reason: Headache/Pain Mild Scale (1-3) Last Admin: 01/16/24 08:13 Dose: 650 mg Al Hydroxide/Mg Hydroxide (Magnesium Hydrox/Alum Hydrox 30 Ml Oral.Susp) 30 ml PO Q6H PRN PRN Reason: Heartburn/Nausea Divalproex Sodium (Divalproex Sodium Er 500 Mg Tab.Er.24h) 500 mg PO BEDTIME [facility] Last Admin: 01/15/24 21:15 Dose: 500 mg Folic Acid (Folic Acid 1 Mg Tablet) 1 mg PO DAILY [facility] Last Admin: 01/16/24 08:13 Dose: 1 mg Hydroxyzine HCl (Hydroxyzine Hcl 25 Mg Tablet) 25 mg PO Q6H PRN PRN Reason: Anxiety Last Admin: 01/15/24 21:15 Dose: 25 mg Lorazepam (Lorazepam 1 Mg Tablet) 1 mg PO Q2H PRN PRN Reason: CIWA 6-10 Last Admin: 01/14/24 10:01 Dose: 1 mg Lorazepam (Lorazepam 1 Mg Tablet) 2 mg PO Q2H PRN PRN Reason: CIWA 11 and above Last Admin: 01/14/24 21:55 Dose: 2 mg Magnesium Hydroxide (Milk Of Magnesia 30 Ml Oral.Susp) 30 ml PO DAILY PRN PRN Reason: Constipation Methadone HCl (Methadone Hcl 20 Mg/2 Ml Oral.Conc) 125 mg PO DAILY [facility] Last Admin: 01/16/24 07:31 Dose: 125 mg Nicotine (Nicotine 21 Mg Patch.Td24) 21 mg TRANSDERMA DAILY PRN PRN Reason: nicotine cravings Last Admin: 01/13/24 17:35 Dose: 21 mg Nicotine Polacrilex (Nicotine Polacrilex Lozenge 2 Mg Lozenge) 2 mg BUCCAL Q2H PRN PRN Reason: Nicotine Cravings Last Admin: 01/15/24 21:15 Dose: 2 mg Nicotine Polacrilex (Nicotine Polacrilex 2 Mg Gum) 4 mg BUCCAL Q2H PRN PRN Reason: Nicotine Cravings Last Admin: 01/14/24 11:18 Dose: 4 mg Olanzapine (Olanzapine Odt 10 Mg Tab.Rapdis) 10 mg TRANSLINGU BID [facility] Last Admin: 01/16/24 08:13 Dose: 10 mg Olanzapine (Olanzapine 5 Mg Tablet) 5 mg PO Q4H PRN PRN Reason: psychosis, agitation,lability Thiamine HCl (Thiamine Hcl 100 Mg Tablet) 100 mg PO DAILY [facility] Last Admin: 01/16/24 08:13 Dose: 100 mg Trazodone HCl (Trazodone Hcl 50 Mg Tablet) 50 mg PO BEDTIME MRX1 PRN PRN Reason: Insomnia Last Admin: 01/15/24 21:15 Dose: 50 mg Allergies Allergies Allergy/AdvReac Type Severity Reaction Status Date / Time No Known Allergies Allergy Verified 01/12/24 18:40 [No Known Allergies*] Assessment & Plan Assessment & Plan (1) Schizophrenia: Status: Acute Code(s): F20.9 - Schizophrenia, unspecified (2) MDD (major depressive disorder), recurrent episode, moderate: Status: Acute Code(s): F33.1 - Major depressive disorder, recurrent, moderate (3) Antisocial personality disorder: Status: Acute Code(s): F60.2 - Antisocial personality disorder (4) Severe opioid use disorder on maintenance therapy: Status: Acute Code(s): F11.20 - Opioid dependence, uncomplicated (5) Cocaine abuse: Status: Acute Code(s): F14.10 - Cocaine abuse, uncomplicated Plan Schizophrenia, Recurrent Major Depression, Antisocial Personality Disorder, Opiate, Cocaine use disorders. Plan: Admit, CV, 15 minute checks Encourage milieu involvement Medication review Olanzapine 10 bid and 5 q 4 prn Depakote ER 500 mg hs Diagnostics as needed Collateral contacts Discharge planning. 01/14: Continue current regimen and plans. He is in need of proper discharge planning in light of being kicked out of [facility] because of aggressive behaviors. 01/15: Continue current regimen and plans for stabilization and medication management Reason for continued inpatient stay Substantial Risk for: med/psych decompensation Time Spent With Patient Time: Total time managing care of this patient today ____ minutes.
[2024-01-16] MEDS: hydrOXYzine HCL 25 MG TABLET PO (10:21)
[2024-01-16] MEDS: OLANZapine 5 MG TABLET PO (10:21)
[2024-01-16] MEDS: Nicotine Polacrilex Lozenge 2 MG LOZENGE BUCCAL (10:21)
[2024-01-16] MEDS: Nicotine Polacrilex 2 MG GUM 4 MG BUCCAL (12:19)
[2024-01-16] MEDS: Divalproex Sodium ER 500 MG TAB.ER.24H PO (20:00)
[2024-01-16] MEDS: traZODone HCL 50 MG TABLET PO (20:01)
[2024-01-17] MEDS: methADONE HCl 20 MG/2 ML ORAL.CONC 125 MG PO (07:57)
[2024-01-17] MEDS: Folic Acid 1 MG TABLET PO ×2 (09:53→09:54)
[2024-01-17] MEDS: Thiamine HCL 100 MG TABLET PO ×2 (09:53)
[2024-01-17] MEDS: OLANZapine ODT 10 MG TAB.RAPDIS TRANSLINGU (09:54)
--- NOTE | 2024-01-17 09:56 | PC.NURSE ---
AM meds given as unscheduled. OK per C.A.W, WELL DRILL OPERATOR
[2024-01-17] MEDS: Nicotine Polacrilex 2 MG GUM 4 MG BUCCAL (10:48)
[2024-01-17] MEDS: Nicotine Polacrilex Lozenge 2 MG LOZENGE BUCCAL (12:38)
[2024-01-17] MEDS: hydrOXYzine HCL 25 MG TABLET PO (12:38)
[2024-01-17] MEDS: OLANZapine 5 MG TABLET PO (12:38)
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
== END 2024-01-17 13:35 | disposition home or self-care (01) | DRG 751 ==
LOC: HO.ED 20:00 → HO.PM5 01-13 15:30
PROVIDERS: Physician Assistant; Admitting Provider Clinical Nurse Specialist Psychiatric/Mental Health, Adult; Emergency Provider Student in an Organized Health Care Education/Training Program; Visit Provider Clinical Nurse Specialist Psychiatric/Mental Health, Adult
DX: F33.1 Major depressive disorder, recurrent, moderate (principal); R45.851 Suicidal ideations; F20.9 Schizophrenia, unspecified; F11.20 Opioid dependence, uncomplicated; F17.210 Nicotine dependence, cigarettes, uncomplicated; F19.10 Other psychoactive substance abuse, uncomplicated; Z71.6 Tobacco abuse counseling; F60.2 Antisocial personality disorder; Z63.4 Disappearance and death of family member; Z59.02 Unsheltered homelessness
CPT/HCPCS: 36415; 80053; 80143; 80179; 80307; 85025; 93005; 99285; S9485

== ENCOUNTER → 2024-01-13 09:19 | Outpatient (BNV) | payer OTHER, SELFPAY | PROVIDERS: Admitting Provider Clinical Nurse Specialist Psychiatric/Mental Health, Adult; Emergency Provider Student in an Organized Health Care Education/Training Program; Visit Provider Internal Medicine Cardiovascular Disease | DX: R00.1 Bradycardia, unspecified (principal) | CPT/HCPCS: 93010 ==

== ENCOUNTER → 2024-01-13 14:39 | Outpatient (BNV) | payer OTHER, SELFPAY | PROVIDERS: Admitting Provider Clinical Nurse Specialist Psychiatric/Mental Health, Adult; Emergency Provider Student in an Organized Health Care Education/Training Program; Visit Provider Psychiatry & Neurology Psychiatry | DX: F60.2 Antisocial personality disorder (principal); F33.1 Major depressive disorder, recurrent, moderate; F20.9 Schizophrenia, unspecified; F11.20 Opioid dependence, uncomplicated | CPT/HCPCS: 90792; 99231; 99238 ==

== ENCOUNTER 2024-08-10 12:34 | Emergency (ER) | payer OTHER, SELFPAY ==
[2024-08-10 12:37] VITALS: BP 135/82; PULSE 93; RESP 18; TEMP 36.3; O2SAT 97; BMI 36.3
--- NOTE | 2024-08-10 12:41 | ECG_ITS ---
Test Reason : substance abuse Blood Pressure : */* mmHG Vent. Rate : 79 BPM Atrial Rate : 79 BPM P-R Int : 178 ms QRS Dur : 96 ms QT Int : 414 ms P-R-T Axes : 37 52 56 degrees QTcB Int : 474 ms Normal sinus rhythm Normal ECG When compared with ECG of 13-Jan-2024 10:18, Vent. rate has increased by 26 bpm Referred By: Dillan Nelson Electronically Signed By: NADIA CARBAJAL MD
--- NOTE | 2024-08-10 12:41 | ED.GENADULT ---
HPI - General Adult General Chief complaint: Psychiatric Symptoms Stated complaint: crisis Time Seen by Provider: 08/10/24 13:05 Source: patient and old records reviewed Mode of arrival: ambulatory Limitations: no limitations History of Present Illness ED Provider: DAVID HPI narrative: 33 yo male wtih PMH of depression, antisocial personality disorder, opiate use disorder, cocaine abuse who comes in with c/o not taking his medications for 2 weeks does not feel safe at his house and SI but no plan. He notes he has too much going on in his life. He is still using IV drugs. complaint: SI, drug abuse Onset (ago): week(s) (2) Relieving factors: none Exacerbating factors: other Associated symptoms: denies other symptoms Treatments prior to arrival: none Related Data Home Medications ?Medication ?Instructions ?Recorded ?Confirmed methadone 10 mg/mL oral 125 mg PO DAILY 12/17/22 08/10/24 concentrate (Methadose) Allergies Allergy/AdvReac Type Severity Reaction Status Date / Time haloperidol [From Haldol] AdvReac Muscle Verified 08/10/24 12:41 cramps Review of Systems Review of Systems: Constitutional : No Fever, No Chills ENT/Mouth : No Ear Pain, No Nasal Congestion, No sore throat Eyes: No Eye Pain, No Swelling, No Redness Cardiovascular : No Chest Pain, No SOB Respiratory : No Cough, No Sputum, No Dyspnea Gastrointestinal : No Nausea, No Vomiting, No Diarrhea, No Hematochezia, No Melena Genitourinary : No Dysuria, No Urinary Frequency, No Hematuria Musculoskeletal : No Myalgias Skin : No Skin Lesions, No rash Neuro : No Weakness, No Numbness, No Paresthesias, No Dizziness, No Headache Psych : positive Anxiety, positive Depression, positive SI no HI All other systems reviewed and are negative [facility] Past Medical History Attestation statement: The following information was validated with the patient. Source: old records reviewed Medical History Severe opioid use disorder on maintenance therapy Antisocial personality disorder Schizophrenia Social History Social History Household Members: None Housing: Homeless Housing Other:: Group homes, I'm skipping around penitentiary to another. Do you presently have visiting nurse or other home services: No Unable to assess alcohol history related to: Refusing to respond Patient Tobacco Use Status: Current everyday Tobacco user Tobacco use type: Cigarette Cigarette Packs Per Day: 0.5 Cigarettes Per Day: 10.0 Years Smoked: 10 Smoked in Last 30 Days: Yes Use of substances other than those prescribed or required for medical reasons: Yes Substance Use Type: Crack/Cocaine Substance Use Frequency: Daily Last Used Substance: Days (ago) Any prior treatment program specific to substance use: Yes Advance Directives: No Advance Directives Information Provided: Yes service: No Sexual orientation: Unable to collect Physical Exam ED Vital Signs: Vital Signs - 24 hr 08/11/24 06:03 Temperature 97.3 F Pulse Rate 58 Respiratory Rate 16 Blood Pressure 99/56 L Pulse Oximetry 96 Oxygen Delivery Method Room Air BMI result Body Mass Index 36.3 Appearance: Alert. Oriented X3. No acute distress. Eyes: Pupils equal, round and reactive to light. ENT: Pharynx normal. Neck: Normal inspection. Neck supple. CVS: Normal heart rate and rhythm. Pulses normal. Respiratory: No respiratory distress. Breath sounds normal. Abdomen: Soft and nontender. Skin: Skin warm and dry. Normal skin color. Normal skin turgor. Extremities: No lower extremity edema. No calf ttp Neuro: Oriented X 3. No motor deficit. No sensory deficit. CN2-12 intact Course Course Course Narrative: RME, this is a rapid medical exam performed by Lucas Nelson please refer to primary provider for complete H&P- 33 year old male presents for evaluation of depression with suicidal ideation he reports that he has not been taking his meds. Plan for medical clearance and care team consult Reevaluation(s) Reevaluation #1: Time: 12:00 Date: 08/11/24 Provider: Chaparrita Mondragon DO Physician observation ended at 1200.Patient to be admitted as inpatient to psychiatry at outside facility Medications Administered Discontinued Medications Generic Name Dose Route Start Last Admin Trade Name Freq PRN Reason Stop Dose Admin Acetaminophen 650 mg 08/10/24 19:14 08/10/24 19:18 Acetaminophen 325 Mg Tablet PO 08/10/24 19:15 650 mg ONCE ONE Administration Ibuprofen 600 mg 08/10/24 21:31 08/10/24 21:37 Ibuprofen 600 Mg Tablet PO 08/10/24 21:32 600 mg ONCE ONE Administration Methadone HCl 50 mg 08/11/24 07:40 08/11/24 08:43 Methadone Hcl 20 Mg/2 Ml Oral.Conc PO 08/11/24 07:41 50 mg ONCE ONE Administration Nicotine 14 mg 08/11/24 11:47 08/11/24 12:10 Nicotine 14 Mg Patch.Td24 TRANSDERMA 08/11/24 11:48 14 mg ONCE ONE Administration Medical Decision Making Medical Decision Making [facility] Narrative: 33 yo male wtih PMH of depression, antisocial personality disorder, opiate use disorder, cocaine abuse now here with c/o SI and upset with his life. At this time he has no medical complaints, track landin on R arm look uninfected will obtain labs and refer to CARE team. 740 AM I, Dr. Shook have take over the care of this patient, ordered 50 mg of methadone, reviewed relevant blood work Differential Diagnosis Differential Diagnoses: The differential diagnosis associated with the presentation includes Admission/Observation Consideration of admission/observation: Escalation of care including admission/observation considered physician observation started at 159pm pending CARE team Consult Healthcare Provider Management of the patient was discussed with: Behavioral Health Provider Lab Data [facility] Lab Attestation statement: I reviewed the patient's lab results. 08/10/24 13:30 08/10/24 13:30 Labs: Lab Results 08/10/24 08/11/24 Range/Units 13:30 06:39 WBC 12.2 H (4.8-10.8) X10*3/uL RBC 4.64 (4.60-5.80) X10*6/uL Hgb 12.3 L (14.0-18.0) g/dl Hct 37.2 L (42.0-52.0) % MCV 80.2 (80.0-98.0) fL MCH 26.5 L (27.0-33.0) pg MCHC 33.1 (31.0-36.0) g/dl RDW 15.3 (11.0-16.0) % Plt Count 198 D (160-400) X10*3/uL MPV 11.0 (9.4-12.4) fL Immature Gran % (Auto) 0.2 (0.0-0.4) % Neut % (Auto) 65.1 (45-73) % Lymph % (Auto) 26.1 (20-40) % [place] % (Auto) 8.1 (2-11) % Eos % (Auto) 0.2 (0-4) % Baso % (Auto) 0.3 (0-2) % Lymph # (Auto) 3.2 (1.2-4.9) X10*3/uL [place] # (Auto) 1.0 (0.1-1.2) X10*3/uL Eos # (Auto) 0.0 (0.0-0.4) X10*3/uL Baso # (Auto) 0.0 (0.0-0.2) X10*3/uL Abs Immat Gran (auto) 0.03 (0.00-0.03) X10*3/uL Absolute Neuts (auto) 7.9 (2.0-8.3) x10*3/uL Absolute Nucleated RBC 0.000 (0.0-0.012) X10*3/uL Nucleated RBC % (auto) 0.0 (0.0-0.2) /100WBC Sodium 136 (135-145) mmol/L Potassium 3.4 D (3.3-5.1) mmol/L Chloride 104 (96-108) mmol/L Carbon Dioxide 27 (22-29) mmol/L Anion Gap 8 L (12-20) BUN 30 H (9-16) mg/dL Creatinine 0.67 (0.5-1.4) mg/dL Estim Creat Clear Calc 227.1 Estimated GFR > 60 Random Glucose 126 H (60-115) mg/dL Calcium 8.8 D (8.4-10.2) mg/dL Total Bilirubin 1.1 H (0.0-1.0) mg/dL AST 71 H (5-37) U/L ALT 94 H (0-40) U/L Alkaline Phosphatase 99 (39-117) U/L Total Protein 7.4 (6.5-8.0) g/dL Albumin 4.4 (3.5-5.0) g/dL Salicylates < 5.0 L (15-30) mg/dL Urine Opiates Screen Not Detected (Not Detect) Ur Buprenorphine Scrn Not Detected (Not Detect) ng/mL Ur Oxycodone Screen Not Detected (Not Detect) ng/mL Urine Methadone Screen Positive H (Not Detect) ng/mL Urine Fentanyl Screen POSITIVE H (Not Detect) Acetaminophen < 3 (<30) mcg/mL Ur Barbiturates Screen Not Detected (Not Detect) Ur Phencyclidine Scrn Not Detected (Not Detect) Ur Amphetamines Screen Not Detected (Not Detect) U Benzodiazepines Scrn Not Detected (Not Detect) [place] < 0.10 L (0.60-1.20) mmol/L Urine Cocaine Screen POSITIVE H (Not Detect) U Marijuana (THC) Screen POSITIVE H (Not Detect) Ethyl Alcohol < 10 mg/dL Independent Interpretation I performed an independent interpretation of an: EKG Interpretation: Rate: 79 Rhythm: NSR [place]: normal Normal P waves. Normal DESTINEY. Normal QRS complex. ST T wave : normal no CYNTHIA qTC: 474 prior studies: no acute ischemia The study has been interpreted contemporaneously by me. . External Record Review External record reviewed: Inpatient record and Outpatient record Social Determinants Patient?s care significantly limited by Social Determinants of Health including: Problems related to primary support group Discharge Plan Discharge Clinical Impression: Opiate abuse, continuous Patient Disposition: Xfer Other Transfer Details: Dual diagnosis to [facility] via EMS Prescriptions: No Action methadone [Methadose] 10 mg/mL concentrate 125 mg PO DAILY Interventions: [place]-Suicide Risk Severity Scale Last Done: 08/10/24 13:00 Discharge Date/Time: 08/11/24 12:17 Print Language: Zambian
[2024-08-10 13:33] LABS: MANUAL DIFF FLAG NO
[2024-08-10 13:37] LABS: Basophils Percent Auto 0.3 % (0-2); Eosinophils Percent Auto 0.2 % (0-4); Hematocrit 37.2 % (42.0-52.0); Hemoglobin 12.3 g/dl (14.0-18.0); Imm Gran Abs Auto 0.03 X10*3/uL (0.00-0.03); Imm Gran Pct Auto 0.2 % (0.0-0.4); Lymphocytes Absolute Auto 3.2 X10*3/uL (1.2-4.9); Lymphocytes Percent Auto 26.1 % (20-40); Mean Corpuscular HGB Conc 33.1 g/dl (31.0-36.0); Mean Corpuscular Hemoglobin 26.5 pg (27.0-33.0); Mean Corpuscular Volume 80.2 fL (80.0-98.0); Monocytes Percent Auto 8.1 % (2-11); Neutrophils Absolute Auto 7.9 x10*3/uL (2.0-8.3); Neutrophils Percent Auto 65.1 % (45-73); Platelet Count 198 X10*3/uL (160-400); Red Blood Count 4.64 X10*6/uL (4.60-5.80); Red Cell Distribution Width 15.3 % (11.0-16.0); White Blood Count 12.2 X10*3/uL (4.8-10.8)
[2024-08-10 13:45] LABS: Lithium < 0.10 mmol/L (0.60-1.20)
[2024-08-10 13:51] LABS: Acetaminophen LAB < 3 mcg/mL (<30); Salicylate < 5.0 mg/dL (15-30)
[2024-08-10 13:52] LABS: Alanine Aminotransferase 94 U/L (0-40); Albumin Level 4.4 g/dL (3.5-5.0); Alkaline Phosphatase 99 U/L (39-117); Anion Gap 8 (12-20); Aspartate Amino Transferase 71 U/L (5-37); Bilirubin Total 1.1 mg/dL (0.0-1.0); Blood Urea Nitrogen 30 mg/dL (9-16); Calcium 8.8 mg/dL (8.4-10.2); Carbon Dioxide 27 mmol/L (22-29); Chloride 104 mmol/L (96-108); Creatinine Clr Calc Pharmacy 227.1; Estimated Glomerular Filt Rate > 60; Ethanol < 10 mg/dL; Glucose Random 126 mg/dL (60-115); Potassium 3.4 mmol/L (3.3-5.1); Sodium 136 mmol/L (135-145); Total Protein 7.4 g/dL (6.5-8.0)
[2024-08-10 15:12] VITALS: BP 102/51; PULSE 75; RESP 12; TEMP 36.8; O2SAT 94
--- NOTE | 2024-08-10 15:45 | MHC.CARE ---
Assessed by CARE team, plan to follow up in the morning re: section 34ing himself or reconsidering detox
--- OUTSIDE RECORDS SUMMARY | 2024-08-10 17:08 | XMS_ITS | Clinical Summary ---
Author Organization [employer] [facility] Address [address] [place] [address] Care Team Providers Care Shipping Coordinator Name Role Phone Shaheed Young MD Primary Care Provider [phone] Allergies No known active allergies Medications Medication Sig Dispensed Refills Start Date End Date Status methadone (Methadose) 40 MG disintegrating tabletIndications:Opi oid Dependence Take 2 tablets (80 mg total) by mouth daily. 0 Active methadone (DOLOPHINE) 10 MG tabletIndications:Opi oid Dependence Take 2 tablets (20 mg total) by mouth daily. 0 Active OLANZapine zydis (ZyPREXA) 15 MG disintegrating tabletIndications:Psy chotic Depression Take 1 tablet (15 mg total) by mouth every night at bedtime. 30 tablet 0 09/28/2022 Active traZODone (DESYREL) 150 MG tabletIndications:Ins omnia Take 1 tablet (150 mg total) by mouth every night at bedtime. 30 tablet 0 09/28/2022 Active FLUoxetine (PROzac) 10 MG capsuleIndications:Ma jayden Depressive Disorder Take 3 capsules (30 mg total) by mouth daily. 90 capsule 0 09/29/2022 Active folic acid (FOLVITE) tablet 1 mgIndications:Vitamin Supplementation Take 1 tablet (1 mg total) by mouth daily. 30 tablet 0 09/29/2022 Active gabapentin (NEURONTIN) 400 MG capsuleIndications:Al cohol Use Disorder,Social Anxiety Disorder Take 2 capsules (800 mg total) by mouth 3 (three) times a day. 180 capsule 0 09/28/2022 Active hydrOXYzine (ATARAX) 50 MG tabletIndications:Anx iety Take 1 tablet (50 mg total) by mouth 3 (three) times a day as needed for anxiety (anxiety/agitat ion). 60 tablet 0 09/28/2022 Active nicotine (NICODERM CQ) 21 MG/24HRIndications:Ni cotine Dependence Place 1 patch onto the skin daily. 28 patch 0 09/29/2022 Active nicotine polacrilex (NICORETTE) 2 MG gumIndications:Nicoti ne Dependence Use as directed 1 each (2 mg total) in the mouth or throat every hour as needed for smoking cessation (Nicotine craving). 100 each 0 09/28/2022 Active thiamine mononitrate (THIAMINE) 100 MG tabletIndications:Vit george supplementation Take 1 tablet (100 mg total) by mouth daily. 30 tablet 0 09/29/2022 Active Naloxone HCl 4 MG/0.1ML LIQDIndications:Opioi d Overdose spray or apply 1 spray inside Nose as needed. 1 each 0 09/28/2022 Active Active Problems Problem Noted Date Diagnosed Date Antisocial personality disorder 09/28/2022 Stimulant use disorder 09/14/2022 Opioid use disorder 09/14/2022 Dependence on nicotine from cigarettes Resolved Problems Problem Noted Date Diagnosed Date Resolved Date MDD (major depressive disord er), recurrent, severe, with psychosis 09/12/2022 09/28/2022 Family History * Patient is adopted Relation Name Status Comments Father Other Mother Other Social History Tobacco Use Types Packs/Day Years Used Date Smoking Tobacco: Every Day Cigarettes 1 15 Started: 2001 Smokeless Tobacco: Never Tobacco Cessation:Ready to Q uit: No; Counseling Given: Yes Alcohol Use Standard Drinks/Week Comments Not Currently 0 (1 standard drink = 0.6 oz pur e alcohol) Sex and Gender Information Value Date Recorded Sex Assigned at Male 09/12/2022 7:16 PM EDT Gender Identity Male 09/12/2022 7:56 PM EDT Sexual Orientation Straight 09/12/2022 7 :56 PM EDT Job Start Date Occupation Industry Not on file Not on file Not on file Last Filed Vital Signs Vital Sign Reading Time Taken Comments Blood Pressure 133/81 09/26/2022 4:45 PM EDT Pulse 103 09/26/2022 4:45 PM EDT Temperature 36.6 ??C (97.9 ??F) 09/26/2022 4:44 PM ED T Respiratory Rate 20 09/26/2022 4:45 PM EDT Oxygen Saturation 93% 09/26/2022 4:45 PM EDT Inhaled Oxygen Concentration - - Weight 86.2 kg (190 lb) 09/18/2022 1:33 PM EDT Height 188 cm (6' 2 ) 09/18/2022 1:35 PM EDT Body Mass Index 24.39 09/18/2022 1:33 PM EDT Plan of Treatment Not on file Advance Directives For more information, please contact: [phone] Latest Code Status on File Code Status Date Activated Date Inactivated Comments Full Code 09/12/2022 8:06 PM 09/28/2022 6:09 PM This code status was ascertained in the following way: per unit protocol. Care Teams Shipping Coordinator Relationship Specialty Start Date End Date Shaheed Young MD [address] [place] [address] PCP - General Internal Medicine 09/12/22
[2024-08-10] MEDS: Acetaminophen 325 MG TABLET 650 MG PO (19:18)
[2024-08-10] MEDS: Ibuprofen 600 MG TABLET PO (21:37)
[2024-08-11 06:03] VITALS: BP 99/56; PULSE 58; RESP 16; TEMP 36.3; O2SAT 96
[2024-08-11 06:58] LABS: Amphetamine Screen Urine Not Detected (Not Detect); Barbiturates, Urine Not Detected (Not Detect); Benzodiazepines Screen Urine Not Detected (Not Detect); Buprenorphine Scr Not Detected (Not Detect); Cannabinoid Screen Urine POSITIVE (Not Detect); Cocaine Screen Urine POSITIVE (Not Detect); Fentanyl, urine POSITIVE (Not Detect); Methadone Screen, Urine Positive (Not Detect); Opiate Screen Urine Not Detected (Not Detect); Oxycodone Screen Urine Not Detected (Not Detect); Phencyclidine Screen Urine Not Detected (Not Detect)
[2024-08-11] MEDS: methADONE HCl 20 MG/2 ML ORAL.CONC 50 MG PO (08:43)
--- NOTE | 2024-08-11 09:12 | MHC.CARE ---
Pt was accepted to [facility] by Michelle for today 08/11/24. The accepting doctor is Dr. Paulino and the ETA is 12:30pm. The address is [address] [place] [address]. No nurse to nurse is required by the accepting facility. Pod RN and CARE team have been notified of placement.
[2024-08-11] MEDS: Nicotine 14 MG PATCH.TD24 TRANSDERMA (12:10)
== END 2024-08-11 12:17 | disposition other institution (70) ==
PROVIDERS: Physician Assistant; Emergency Provider Emergency Medicine
DX: F11.10 Opioid abuse, uncomplicated (principal); F14.10 Cocaine abuse, uncomplicated; Z79.899 Other long term (current) drug therapy; R45.851 Suicidal ideations; Z51.81 Encounter for therapeutic drug level monitoring; Z71.51 Drug abuse counseling and surveillance of drug abuser
CPT/HCPCS: 36415; 80053; 80143; 80178; 80179; 80307; 85025; 93005; 99285; S9485

== ENCOUNTER → 2024-08-10 12:41 | Outpatient (BNV) | payer OTHER, SELFPAY | PROVIDERS: Emergency Provider Emergency Medicine; Visit Provider Internal Medicine Cardiovascular Disease | DX: F19.10 Other psychoactive substance abuse, uncomplicated (principal) | CPT/HCPCS: 93010 ==

== ENCOUNTER 2024-08-17 15:52 | Inpatient (IN) | payer OTHER, SELFPAY ==
[2024-08-17 16:29] VITALS: BP 116/88; PULSE 84; RESP 18; TEMP 36.9; O2SAT 96
--- OUTSIDE RECORDS SUMMARY | 2024-08-17 16:53 | XMS_ITS | Clinical Summary ---
Author Organization [employer] [facility] Address [address] [place] [address] Care Team Providers Care Clerical Adjudicator Name Role Phone Shaheed Young MD Primary Care Provider [phone] Allergies No known active allergies Medications Medication [...] 103 09/26/2022 4:45 PM EDT Temperature 36.6 C (97.9 F) 09/26/2022 4:44 PM EDT Respiratory Rate 20 09/26/2022 4:45 PM EDT Oxygen Saturation 93% 09/26/2022 4:45 PM EDT Inhaled Oxygen Concentration - - Weight 86.2 kg (190 lb) 09/18/2022 1:33 PM EDT Height 188 cm (6' 2 ) 09/18/2022 1:35 PM EDT Body Mass Index 24.39 09/18/2022 1:33 PM EDT Plan of Treatment Not on file Advance Directives For more information, please contact: [phone] Latest Code Status on File Code Status Date Activated Date Inactivated Comments Full Code 09/12/2022 8:06 PM 09/28/2022 6:09 PM This code status was ascertained in the following way: per unit protocol. Care Teams Clerical Adjudicator Relationship Specialty Start Date End Date Shaheed Young MD [address] [place] [address] PCP - General Internal Medicine 09/12/22
--- NOTE | 2024-08-17 17:20 | HE.PHANOTE ---
Methadone Methadone verification form received . Patients last dose was 50 mg on 08/17/24 @0900 per christiane. Patient was getting methadone last from [facility] ).
[2024-08-17] MEDS: Nicotine Polacrilex 2 MG GUM 4 MG BUCCAL ×2 (17:57→21:07)
--- NOTE | 2024-08-17 18:25 | PC.ADMIT ---
Alejandro is a 34 y/o prydeinig speaking male was [facility] to at [facility] for treatment of Schizoaffective d/o with SI. Pt has been homeless and has chronic IVDU. Pt has been becoming increasingly suicidal. Pt doesn?t believe his medications are working anymore. Pt is A&O X3, his mood is irritable with a congruent affect. Pt was unwilling to sit for the admission process and asked ? not to be bothered.?. Pt denied SI/HI and verbalized he would come to staff if this changed. Pt reported Auditory hallucinations that ? he hears birds speaking prydeinig to him and that he is paranoid at times that others are talking about him.?? Pt is dismissive with questions. Pt was recently administratively discharged from on 01/16/25. Pt had a good appetite and reported no weight loss. Pt wouldn?t respond to how his sleep has been. Pt placed on 15 minute safety checks. Tox screen positive for heroin and fentanyl. Pt reports using heroin and cocaine at age 20. Pt has no known medical concerns at this time. Pt skin check completed, skin intact.
[2024-08-17 20:00] VITALS: RESP 18
[2024-08-17] MEDS: hydrOXYzine HCL 25 MG TABLET PO (21:07)
[2024-08-17] MEDS: traZODone HCL 50 MG TABLET PO (21:07)
--- NOTE | 2024-08-18 06:38 | PM.EVENT ---
Event Note Date of Service: 08/18/24 Event Note: Patient is a 34-year-old male past medical history significant for schizophrenia and IV drug use admitted to adult Psychiatry for SI. Hospitalist consultation was placed for medical clearance. Attempted to see the patient and spoke with him at bedside and he refused a medical consultation. He states he is not have any medical concerns currently. He denies any chest pain, shortness of breath, abdominal pain or urinary symptoms. He is aware that is he can be reconsulted if any medical issues arise. Thank you for allowing me to participate in the pt's care. Signing off. Please contact the medical team if any questions or concerns. Time Spent With Patient Time: Total time managing care of this patient today ____ minutes.
[2024-08-18] MEDS: methADONE HCl 20 MG/2 ML ORAL.CONC 50 MG PO (07:53)
[2024-08-18] MEDS: Gabapentin 300 MG CAPSULE PO ×2 (08:13→21:10)
[2024-08-18] MEDS: OXcarbazepine 300 MG TABLET 600 MG PO (08:14)
[2024-08-18] MEDS: Nicotine 21 MG PATCH.TD24 TRANSDERMA (08:14)
[2024-08-18] MEDS: Lithium Carbonate 300 MG CAPSULE 600 MG PO ×2 (08:14→21:10)
[2024-08-18] MEDS: Nicotine Polacrilex 2 MG GUM 4 MG BUCCAL ×4 (08:15→21:10)
--- NOTE | 2024-08-18 09:10 | HO.PSYADMNOT ---
HPI Date of Service: 08/18/24 Chief Complaint: crisis Sources of Information: patient interviewed, chart reviewed and crisis/core team assessment reviewed HPI Subjective Notes: [facility] Warning Past Psychiatric History: IP: affirms, 4-5 OP: SA: overdoses Hx of Anni Recovery admit [address] [facility] Medical History Severe opioid use disorder on maintenance therapy Antisocial personality disorder Schizophrenia Social History: Born, raised in [place]. Foster care child Father ~1 year ago. Pt had lived with him prior to his Eleventh grade education No children, no current relationship Trauma History: Affirms Diagnostics Vital Signs (24Hr): Vital Signs - 24 hr 08/17/24 16:29 08/17/24 20:00 Temperature 98.5 F Pulse Rate 84 Respiratory Rate 18 18 Blood Pressure 116/88 Pulse Oximetry 96 Oxygen Delivery Method Room Air Meds/Allergies Meds Home Medications ?Medication ?Instructions ?Recorded ?Confirmed ?Type methadone 10 mg/mL oral 50 mg PO DAILY 12/17/22 08/17/24 History concentrate (Methadose) benztropine 1 mg tablet 1 mg PO BEDTIME 08/17/24 08/17/24 History gabapentin 600 mg tablet 300 mg PO TID 08/17/24 08/17/24 History lithium carbonate 600 mg capsule 600 mg PO BID 08/17/24 08/17/24 History olanzapine 20 mg tablet 20 mg PO BEDTIME 08/17/24 08/17/24 History oxcarbazepine 300 mg tablet 600 mg PO BID 08/17/24 08/17/24 History trazodone 100 mg PO BEDTIME 08/17/24 08/17/24 History Allergies Allergies Allergy/AdvReac Type Severity Reaction Status Date / Time haloperidol (From Haldol) AdvReac Muscle Verified 08/10/24 12:41 cramps Assessment & Plan Statement Statement: I have reviewed the history and physical and performed a pertinent examination on my patient. No changes have occurred unless specified. If the History and Physical was not performed prior to admission, the Hospitalist's service will be consulted for completing the admission physical. Time Spent With Patient Time: Total time managing care of this patient today ____ minutes.
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
[2024-08-18] MEDS: Hydrocortisone 1 % Ointment 28.35 GM TUBE 1 APPL TOPICAL (09:37)
[2024-08-18 20:55] VITALS: BP 116/70; PULSE 97; RESP 18; TEMP 36.9; O2SAT 97
[2024-08-18] MEDS: traZODone HCL 100 MG TABLET PO (21:07)
[2024-08-19] MEDS: methADONE HCl 20 MG/2 ML ORAL.CONC 50 MG PO (08:08)
[2024-08-19] MEDS: Nicotine Polacrilex 2 MG GUM 4 MG BUCCAL ×5 (08:45→19:16)
[2024-08-19] MEDS: methADONE HCl 10 MG TABLET PO (08:56)
--- NOTE | 2024-08-19 09:00 | HO.PSYCHPN ---
Subjective Subjective Date of Service: 08/19/24 Reason For Visit: crisis Subjective Notes: Conditional Voluntary Healthcare Proxy: No Guardianship: No Medical Problems Affecting Mental Status: No Interim History: Patient was seen and discussed in rounds today. Records and plans were reviewed. He continues to be guarded, withdrawn, having anxiety. He also feels that he has come down on his methadone to rapidly and is feeling sick. I added 10 mg to his dose which will be 60 mg from today. Irritable at times. Pacing. No SI. Eating adequately. No other changes were made Medication Compliance: Yes Side effects from medications: No Attending Groups: Intermittent Review of Systems Review of Systems Yes all other systems are reviewed and are negative Mental Status Exam Mental Status Exam Narrative: In today's visit he is alert, oriented and pleasant. Normal speech. Moderate eye contact. Affect is constricted. No overt signs of psychosis but reports vague auditory hallucinations. No overt delusions. Cognitively is intact. Moves all limbs. No gait abnormalities. Judgment is intact Diagnostics Vital Signs (24Hr): Vital Signs - 24 hr 08/18/24 20:55 Temperature 98.5 F Pulse Rate 97 Respiratory Rate 18 Blood Pressure 116/70 Pulse Oximetry 97 Oxygen Delivery Method Room Air Medications Medications Current Medications Acetaminophen (Acetaminophen 325 Mg Tablet) 650 mg PO Q6H PRN PRN Reason: Headache/Pain, Scale 1-10 Al Hydroxide/Mg Hydroxide (Magnesium Hydrox/Alum Hydrox 30 Ml Oral.Susp) 30 ml PO Q6H PRN PRN Reason: Heartburn/Nausea Benztropine Mesylate (Benztropine Mesylate 1 Mg Tablet) 1 mg PO BEDTIME [facility] Last Admin: 08/18/24 21:39 Dose: Not Given Gabapentin (Gabapentin 300 Mg Capsule) 300 mg PO TID [facility] Last Admin: 08/18/24 21:10 Dose: 300 mg Hydrocortisone (Hydrocortisone 1 % Ointment 28.35 Gm Tube) 1 appl TOPICAL BID [facility]; Protocol Last Admin: 08/18/24 21:39 Dose: Not Given Hydroxyzine HCl (Hydroxyzine Hcl 25 Mg Tablet) 25 mg PO Q6H PRN PRN Reason: mild anxiety Last Admin: 08/17/24 21:07 Dose: 25 mg Shreve Carbonate (Shreve Carbonate 300 Mg Capsule) 600 mg PO BID [facility] Last Admin: 08/18/24 21:10 Dose: 600 mg Magnesium Hydroxide (Milk Of Magnesia 30 Ml Oral.Susp) 30 ml PO DAILY PRN PRN Reason: Constipation Melatonin (Melatonin 3 Mg Tablet) 6 mg PO BEDTIME PRN PRN Reason: Insomnia Methadone HCl (Methadone Hcl 20 Mg/2 Ml Oral.Conc) 60 mg PO DAILY ALENA Nicotine (Nicotine 21 Mg Patch.Td24) 21 mg TRANSDERMA DAILY ALENA Last Admin: 08/18/24 08:14 Dose: 21 mg Nicotine Polacrilex (Nicotine Polacrilex 2 Mg Gum) 4 mg BUCCAL Q2H PRN PRN Reason: Nicotine Cravings Last Admin: 08/19/24 08:45 Dose: 4 mg Olanzapine (Olanzapine 10 Mg Tablet) 20 mg PO BEDTIME ALENA Last Admin: 08/18/24 21:40 Dose: Not Given Oxcarbazepine (Oxcarbazepine 300 Mg Tablet) 600 mg PO BID [facility] Last Admin: 08/18/24 21:40 Dose: Not Given Trazodone HCl (Trazodone Hcl 100 Mg Tablet) 100 mg PO BEDTIME ALENA Last Admin: 08/18/24 21:07 Dose: 100 mg Allergies Allergies Allergy/AdvReac Type Severity Reaction Status Date / Time haloperidol (From Haldol) AdvReac Muscle Verified 08/10/24 12:41 cramps Assessment & Plan Assessment & Plan (1) Antisocial personality disorder: Status: Acute Code(s): F60.2 - Antisocial personality disorder (2) Schizoaffective disorder: Status: Acute Code(s): F25.9 - Schizoaffective disorder, unspecified (3) Cocaine abuse: Status: Acute Code(s): F14.10 - Cocaine abuse, uncomplicated (4) Severe opioid use disorder on maintenance therapy: Status: Acute Code(s): F11.20 - Opioid dependence, uncomplicated Plan HPI: Patient is a 33 years old single male Cambodian speaking with past medical history of bipolar schizophrenia and polysubstance abuse presenting for suicidal thoughts and reports experience auditory hallucinations. Was discharged from [facility] yesterday on August 16. Presented to [facility] ED on the . Last on substance. Very guarded related to substance use. Is not disclose what he has just recently use. Not consistently taking medication. Hyper focused on benzo. He has been admitted to numerous hospital and numerous times, not follow-up with aftercare. This provider knows him in the past, his behavior has no change since last year. History of be declined from a lot of programs due to his behavior. Disrespectful to staff. He can yell and sweating at other people if he does not get the way he wants. Staff and this provider firmly talk to him that this behavior is not acceptable. He does not get responsible for his behavior. , Formulation/clinical reasoning: Recently discharged from [facility] on the 18, not follow-up with follow-up with discharge plan, relapse on substance, increase agitation, depression and anxiety, increase safety concern having SI with plan to overdose. Increase psychosis, reports hearing voices. Being homeless. He would needs to refer him to the treatment program, and environment where he can consistently taking medication. Not sure if he has been compliant medication consistently even though he reports medications not helpful. He hyper focused on benzos which he knows he is not getting. Due to the safety concern from given about information. Is safe to keep him to monitor for any safety concern in the next 72 hours. He will not be safe in the less restrictive environment Hospital course: 08/18: Restart on her home meds included methadone 50 mg. We will check lithium level on the . I will not prescribe benzos as I can put him at risk to getting addiction as he has been desmin trach not able to follow-through with the sobriety. He relapsed on cocaine fentanyl after discharge from [facility]. Monitor for cocaine fentanyl withdrawal symptoms. Nursing staff is aware that need to firmly redirect him if disrespectful and yelling at staff as is not acceptable. Re and the for BMP CMP and A1c for 21. 08/19: Continue current regimen and plans. Increase methadone to 60 mg Plan Patient on 15 minute checks for safety. Admitted to [facility]. CV. Work with treatment team to do collateral for CSS/CCS if possible for aftercare. He is on methadone 50 mg. Has active and Clinic in [place]. Able to return Contact the hospitalist regarding hospitalist consultation on admission. Patient educated on: medication risk/benefits Reason for continued inpatient stay Substantial Risk for: med/psych decompensation Time Spent With Patient Time: Total time managing care of this patient today ____ minutes.
[2024-08-19] MEDS: Nicotine 21 MG PATCH.TD24 TRANSDERMA (09:25)
[2024-08-19] MEDS: Throat Lozenge, Medicated LOZENGE 1 LOZENGE MUCOUS MEM ×2 (09:25→15:15)
[2024-08-19] MEDS: Gabapentin 300 MG CAPSULE PO ×3 (09:26→20:06)
[2024-08-19] MEDS: Lithium Carbonate 300 MG CAPSULE 600 MG PO ×2 (09:26→20:06)
[2024-08-19] MEDS: Hydrocortisone 1 % Ointment 28.35 GM TUBE 1 APPL TOPICAL (09:29)
[2024-08-19] MEDS: Acetaminophen 325 MG TABLET 650 MG PO (16:53)
[2024-08-19 19:35] VITALS: BP 118/62; PULSE 84; RESP 16; TEMP 38; O2SAT 96
[2024-08-19] MEDS: traZODone HCL 100 MG TABLET PO (20:06)
[2024-08-19] MEDS: Benztropine Mesylate 1 MG TABLET PO (20:06)
[2024-08-19] MEDS: Melatonin 3 MG TABLET 6 MG PO (20:06)
[2024-08-20] MEDS: Throat Lozenge, Medicated LOZENGE 1 LOZENGE MUCOUS MEM ×2 (06:56→20:22)
[2024-08-20 07:57] LABS: Lithium 0.46 mmol/L (0.60-1.20)
[2024-08-20] MEDS: methADONE HCl 20 MG/2 ML ORAL.CONC 60 MG PO (08:00)
[2024-08-20 08:02] LABS: Estimated Average Glucose 114 mg/dL; Hemoglobin A1c % 5.6 % (<6.0)
[2024-08-20] MEDS: Nicotine Polacrilex 2 MG GUM 4 MG BUCCAL ×4 (08:02→18:55)
[2024-08-20] MEDS: Nicotine 21 MG PATCH.TD24 TRANSDERMA (08:03)
[2024-08-20 08:04] LABS: Alanine Aminotransferase 84 U/L (0-40); Albumin Level 4.4 g/dL (3.5-5.0); Alkaline Phosphatase 117 U/L (39-117); Anion Gap 12 (12-20); Aspartate Amino Transferase 53 U/L (5-37); Bilirubin Total 0.8 mg/dL (0.0-1.0); Blood Urea Nitrogen 10 mg/dL (9-16); Calcium 9.6 mg/dL (8.4-10.2); Carbon Dioxide 25 mmol/L (22-29); Chloride 107 mmol/L (96-108); Estimated Glomerular Filt Rate > 60; Glucose Random 125 mg/dL (60-115); Potassium 4.2 mmol/L (3.3-5.1); Sodium 140 mmol/L (135-145); Total Protein 7.4 g/dL (6.5-8.0)
[2024-08-20 09:35] VITALS: BP 141/90; PULSE 101; RESP 18; TEMP 37.6; O2SAT 95
--- NOTE | 2024-08-20 09:39 | HO.PSYCHPN ---
Subjective Subjective Date of Service: 08/20/24 Reason For Visit: crisis Subjective Notes: Conditional Voluntary Healthcare Proxy: No Guardianship: No Medical Problems Affecting Mental Status: No Interim History: Patient was seen and discussed in rounds today. Records and plans were reviewed. He still is complaining of feeling sick from having come down on his methadone to rapidly. I will increase him to 70 mg. He was asking for Klonopin which I refused. Also his lithium level is still low at 0.46 and I will increase him by 150 mg and repeat a level tomorrow. His vital signs today are slightly elevated. No SI. Eating and sleeping adequately. Medication Compliance: Yes Side effects from medications: No Attending Groups: Intermittent Review of Systems Review of Systems Nausea and some withdrawal symptoms Yes all other systems are reviewed and are negative Mental Status Exam Mental Status Exam Narrative: In today's visit he is alert, oriented and pleasant. Normal speech. Moderate eye contact. Affect is constricted. No overt signs of psychosis but reports vague auditory hallucinations. No overt delusions. Cognitively is intact. Moves all limbs. No gait abnormalities. Judgment is intact Diagnostics Vital Signs (24Hr): Vital Signs - 24 hr 08/19/24 19:35 08/20/24 09:35 Temperature 100.4 F 99.7 F Pulse Rate 84 101 H Respiratory Rate 16 18 Blood Pressure 118/62 141/90 H Pulse Oximetry 96 95 Oxygen Delivery Method Room Air Room Air Labs 08/20/24 07:24 Labs: Laboratory Results - last 48 hr 08/20/24 07:24 Sodium 140 Potassium 4.2 D Chloride 107 Carbon Dioxide 25 Anion Gap 12 BUN 10 Creatinine 0.80 Estim Creat Clear Calc TNP Estimated GFR > 60 Random Glucose 125 H Estimat Average Glucose 114 Hemoglobin A1c % 5.6 Calcium 9.6 D Total Bilirubin 0.8 AST 53 H ALT 84 H Alkaline Phosphatase 117 Total Protein 7.4 Albumin 4.4 [place] 0.46 L Medications Medications Current Medications Acetaminophen (Acetaminophen 325 Mg Tablet) 650 mg PO Q6H PRN PRN Reason: Headache/Pain, Scale 1-10 Last Admin: 08/19/24 16:53 Dose: 650 mg Al Hydroxide/Mg Hydroxide (Magnesium Hydrox/Alum Hydrox 30 Ml Oral.Susp) 30 ml PO Q6H PRN PRN Reason: Heartburn/Nausea Benzocaine (Throat Lozenge, Medicated Lozenge) 1 lozenge MUCOUS MEM Q2H PRN PRN Reason: Sore Throat Last Admin: 08/20/24 06:56 Dose: 1 lozenge Benztropine Mesylate (Benztropine Mesylate 1 Mg Tablet) 1 mg PO BEDTIME [facility] Last Admin: 08/19/24 20:06 Dose: 1 mg Gabapentin (Gabapentin 300 Mg Capsule) 300 mg PO TID [facility] Last Admin: 08/20/24 09:01 Dose: Not Given Hydrocortisone (Hydrocortisone 1 % Ointment 28.35 Gm Tube) 1 appl TOPICAL BID ALENA; Protocol Last Admin: 08/20/24 09:01 Dose: Not Given Hydroxyzine HCl (Hydroxyzine Hcl 25 Mg Tablet) 25 mg PO Q6H PRN PRN Reason: mild anxiety Last Admin: 08/17/24 21:07 Dose: 25 mg [place] Carbonate ([place] Carbonate 300 Mg Capsule) 600 mg PO DAILY [facility] [place] Carbonate ([place] Carbonate 300 Mg Tablet) 750 mg PO BEDTIME [facility] Magnesium Hydroxide (Milk Of Magnesia 30 Ml Oral.Susp) 30 ml PO DAILY PRN PRN Reason: Constipation Melatonin (Melatonin 3 Mg Tablet) 6 mg PO BEDTIME PRN PRN Reason: Insomnia Last Admin: 08/19/24 20:06 Dose: 6 mg Methadone HCl (Methadone Hcl 20 Mg/2 Ml Oral.Conc) 70 mg PO DAILY [facility] Methadone HCl (Methadone Hcl 10 Mg Tablet) 10 mg PO ONCE ONE Stop: 08/20/24 09:39 Nicotine (Nicotine 21 Mg Patch.Td24) 21 mg TRANSDERMA DAILY [facility] Last Admin: 08/20/24 08:03 Dose: 21 mg Nicotine Polacrilex (Nicotine Polacrilex 2 Mg Gum) 4 mg BUCCAL Q2H PRN PRN Reason: Nicotine Cravings Last Admin: 08/20/24 08:02 Dose: 4 mg Olanzapine (Olanzapine 10 Mg Tablet) 20 mg PO BEDTIME [facility] Last Admin: 08/19/24 20:09 Dose: Not Given Oxcarbazepine (Oxcarbazepine 300 Mg Tablet) 600 mg PO BID [facility] Last Admin: 08/20/24 09:01 Dose: Not Given Trazodone HCl (Trazodone Hcl 100 Mg Tablet) 100 mg PO BEDTIME [facility] Last Admin: 08/19/24 20:06 Dose: 100 mg Allergies Allergies Allergy/AdvReac Type Severity Reaction Status Date / Time haloperidol (From Haldol) AdvReac Muscle Verified 06/12/25 12:41 cramps Assessment & Plan Assessment & Plan (1) Antisocial personality disorder: Status: Acute Code(s): F60.2 - Antisocial personality disorder (2) Schizoaffective disorder: Status: Acute Code(s): F25.9 - Schizoaffective disorder, unspecified (3) Cocaine abuse: Status: Acute Code(s): F14.10 - Cocaine abuse, uncomplicated (4) Severe opioid use disorder on maintenance therapy: Status: Acute Code(s): F11.20 - Opioid dependence, uncomplicated Plan HPI: Patient is a 33 years old single male [place] speaking with past medical history of bipolar schizophrenia and polysubstance abuse presenting for suicidal thoughts and reports experience auditory hallucinations. Was discharged from [facility] yesterday on August 16. Presented to [facility] ED on the . Last on substance. Very guarded related to substance use. Is not disclose what he has just recently use. Not consistently taking medication. Hyper focused on benzo. He has been admitted to numerous hospital and numerous times, not follow-up with aftercare. This provider knows him in the past, his behavior has no change since last year. History of be declined from a lot of programs due to his behavior. Disrespectful to staff. He can yell and sweating at other people if he does not get the way he wants. Staff and this provider firmly talk to him that this behavior is not acceptable. He does not get responsible for his behavior. , Formulation/clinical reasoning: Recently discharged from [facility] on the , not follow-up with follow-up with discharge plan, relapse on substance, increase agitation, depression and anxiety, increase safety concern having SI with plan to overdose. Increase psychosis, reports hearing voices. Being homeless. He would needs to refer him to the treatment program, and environment where he can consistently taking medication. Not sure if he has been compliant medication consistently even though he reports medications not helpful. He hyper focused on benzos which he knows he is not getting. Due to the safety concern from given about information. Is safe to keep him to monitor for any safety concern in the next 72 hours. He will not be safe in the less restrictive environment Hospital course: 08/18: Restart on her home meds included methadone 50 mg. We will check lithium level on the . I will not prescribe benzos as I can put him at risk to getting addiction as he has been desmin trach not able to follow-through with the sobriety. He relapsed on cocaine fentanyl after discharge from [facility]. Monitor for cocaine fentanyl withdrawal symptoms. Nursing staff is aware that need to firmly redirect him if disrespectful and yelling at staff as is not acceptable. Re and the for BMP CMP and A1c for 21. 08/19: Continue current regimen and plans. Increase methadone to 60 mg 08/20: Continue current regimen and plans. Methadone was further increased to 70 mg and lithium was increased by 150 mg. [place] level to be done tomorrow Plan Patient on 15 minute checks for safety. Admitted to [facility]. CV. Work with treatment team to do collateral for CSS/CCS if possible for aftercare. He is on methadone 50 mg. Has active and Clinic in [place]. Able to return Contact the hospitalist regarding hospitalist consultation on admission. Reason for continued inpatient stay Substantial Risk for: med/psych decompensation Time Spent With Patient Time: Total time managing care of this patient today ____ minutes.
[2024-08-20] MEDS: methADONE HCl 20 MG/2 ML ORAL.CONC 10 MG PO (09:56)
[2024-08-20] MEDS: OXcarbazepine 300 MG TABLET 600 MG PO (09:57)
[2024-08-20] MEDS: Gabapentin 300 MG CAPSULE PO (09:57)
[2024-08-20] MEDS: Lithium Carbonate 300 MG CAPSULE 600 MG PO (09:57)
[2024-08-20 10:13] LABS: Adenovirus PCR Not Detected (Not Detect.); Bordetella parapertussis PCR Not Detected (Not Detect.); Bordetella pertussis PCR Not Detected (Not Detect.); Chlamydia pneumoniae PCR Not Detected (Not Detect.); Coronavirus 229E PCR Not Detected (Not Detect.); Coronavirus HKU1 PCR Not Detected (Not Detect.); Coronavirus NL63 PCR Not Detected (Not Detect.); Coronavirus OC43 PCR Not Detected (Not Detect.); Human metapneumovirus PCR Not Detected (Not Detect.); Influenza A PCR Not Detected (Not Detect.); Influenza B PCR Not Detected (Not Detect.); Mycoplasma pneumoniae PCR Not Detected (Not Detect.); Parainfluenza 1 PCR Not Detected (Not Detect.); Parainfluenza 2 PCR Not Detected (Not Detect.); Parainfluenza 3 PCR Not Detected (Not Detect.); Parainfluenza 4 PCR Not Detected (Not Detect.); RSV PCR Not Detected (Not Detect.); Rhino/Enterovirus PCR Not Detected (Not Detect.)
[2024-08-20 10:25] LABS: Influenza A H1 PCR Not Detected (Not Detect.); Influenza A H1-2009 PCR Not Detected (Not Detect.); Influenza A H3 PCR Not Detected (Not Detect.); SARS-CoV-2 PCR Not Detected (Not Detect.)
[2024-08-20 20:00] VITALS: RESP 16
[2024-08-20] MEDS: Acetaminophen 325 MG TABLET 650 MG PO (20:00)
[2024-08-20] MEDS: Benztropine Mesylate 1 MG TABLET PO (20:00)
[2024-08-20] MEDS: Lithium Carbonate 300 MG TABLET 750 MG PO (20:00)
[2024-08-20] MEDS: traZODone HCL 100 MG TABLET PO (20:19)
[2024-08-21 07:53] LABS: Lithium 0.58 mmol/L (0.60-1.20)
[2024-08-21 07:58] VITALS: BP 116/64; PULSE 97; RESP 16; TEMP 36.9; O2SAT 97
[2024-08-21] MEDS: Nicotine 21 MG PATCH.TD24 TRANSDERMA (08:00)
[2024-08-21] MEDS: Lithium Carbonate 300 MG CAPSULE 600 MG PO (08:01)
[2024-08-21] MEDS: methADONE HCl 20 MG/2 ML ORAL.CONC 70 MG PO (08:02)
[2024-08-21] MEDS: Nicotine Polacrilex 2 MG GUM 4 MG BUCCAL (08:04)
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
== END 2024-08-21 10:40 | disposition home or self-care (01) | DRG 752 ==
PROVIDERS: Nurse Practitioner Psychiatric/Mental Health; Psychiatry & Neurology Psychiatry; Admitting Provider Psychiatry & Neurology Psychiatry; Visit Provider Psychiatry & Neurology Psychiatry
DX: F60.2 Antisocial personality disorder (principal); R45.851 Suicidal ideations; F25.9 Schizoaffective disorder, unspecified; F17.210 Nicotine dependence, cigarettes, uncomplicated; F11.20 Opioid dependence, uncomplicated; F14.10 Cocaine abuse, uncomplicated; F19.10 Other psychoactive substance abuse, uncomplicated; Z71.6 Tobacco abuse counseling; Z59.02 Unsheltered homelessness; Z20.822 Contact with and (suspected) exposure to COVID-19; Z79.899 Other long term (current) drug therapy
CPT/HCPCS: 36415; 80053; 80178; 83036; 87633

== ENCOUNTER → 2024-08-17 15:52 | Outpatient (BNV) | payer OTHER, SELFPAY | PROVIDERS: Admitting Provider Psychiatry & Neurology Psychiatry; Visit Provider Psychiatry & Neurology Psychiatry | DX: F60.2 Antisocial personality disorder (principal); F25.0 Schizoaffective disorder, bipolar type; F14.10 Cocaine abuse, uncomplicated; F11.20 Opioid dependence, uncomplicated | CPT/HCPCS: 90792; 99232; 99239 ==

== ENCOUNTER 2024-09-29 18:29 | Inpatient (IN) | payer OTHER, SELFPAY ==
--- OUTSIDE RECORDS SUMMARY | 2024-09-29 18:35 | XMS_ITS | Clinical Summary ---
Author Organization [employer] [facility] Address [address] [place] [address] Care Team Providers Care Threading Machine Feeder Automatic Name Role Phone Shaheed Young MD Primary Care Provider [phone] Allergies No known active allergies Medications Medication [...] Advance Directives For more information, please contact: [phone] Latest Code Status on File Code Status Date Activated Date Inactivated Comments Full Code 09/12/2022 8:06 PM 09/28/2022 6:09 PM This code status was ascertained in the following way: per unit protocol. Care Teams Threading Machine Feeder Automatic Relationship Specialty Start Date End Date Shaheed Young MD [address] [place] [address] PCP - General Internal Medicine 09/12/22
--- NOTE | 2024-09-29 19:29 | PC.ADMIT ---
Pt arrived on the unit at 19:00 on a CV. Skin check completed and VS obtained.
[2024-09-29 20:00] VITALS: BP 114/61; PULSE 67; TEMP 36.3; O2SAT 97
--- NOTE | 2024-09-29 22:10 | PC.NURSE ---
Patient's belongings were inventoried at this time; 4 used syringes were found, as well as a glass tube. These were disposed of in the sharps container.
--- NOTE | 2024-09-30 05:58 | PC.NURSE ---
Patient is a 34 year old male who is admitted to at 1900 from [facility] as a CV, followed by a 3 day notice; he is on 15 minute checks. Alejandro was admitted to [facility] on 09/28/24 after he reported that he attempted to overdose on 09/19/24 on cocaine. He reports there were no precipitating factors to this overdose. He has a history of two overdose attempts in the past, and has been inpatient 15 times in the last 3 years. His history is remarkable for MDD, PTSD, cluster B personality traits, polysubstance use disorder, and opiate use disorder. He is currently on suboxone. He uses cocaine and crack daily. He is unhoused and has no support system. He endorses SI with no plan at this time. He refuses [employer].
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
--- NOTE | 2024-09-30 11:07 | PHA.MEDREC ---
Pharmacy Consult ? Medication Reconciliation Pharmacy has completed the medication reconciliation. pharmacy has reviewed med rec done by nursing. confirmed with rn and patient that the pt is only taking 1 suboxone daily even though claims states 3/day.
[2024-09-30] MEDS: Buprenorphine/Naloxone 2/0.5mg TAB.SUBL 1 TAB SUBLINGUAL (11:17)
--- NOTE | 2024-09-30 15:31 | P.CNHOSGPS_ITS ---
History of Present Illness Data of Consult Service Date: 09/30/24 Primary Care Provider: Unknown Physician HPI Reason for consult: hpi 64M PMH HCV, ivda, schizoaffective, admitted to inpatient psych. complaining of desquamating rash over cheeks, no other acute issues, denies chest pain, sob, fever, chills. Review of Systems Review of Systems: Yes all other systems are reviewed and are negative [facility] Medical History HCV (hepatitis C virus) MDD (major depressive disorder), recurrent episode, moderate Severe opioid use disorder on maintenance therapy Antisocial personality disorder Schizophrenia Social History Household Members: None Housing: Homeless Housing Other:: Group homes, I'm skipping around [facility] to another. Do you presently have visiting nurse or other home services: No Unable to assess alcohol history related to: Refusing to respond Patient Tobacco Use Status: Refuse Tobacco use screen Tobacco use type: Cigarette Cigarette Packs Per Day: 1 Cigarettes Per Day: 20.0 Years Smoked: UNKNOWN e-Cigarette/Vaping Use: Currently Using Second Hand Smoke Exposure: No Substance Use Type: Crack/Cocaine Currently Displaying Signs/Symptoms of Drug Intoxication Withdrawal: No Advance Directives: No Advance Directives Information Provided: No Do you have thoughts of harming others: None Do you have a plan to hurt others: No Plan service: No Sexual orientation: Straight/Heterosexual Meds Allergies Allergy/AdvReac Type Severity Reaction Status Date / Time haloperidol (From Haldol) AdvReac Muscle Verified 08/10/24 12:41 cramps Active Medications: Current Medications Acetaminophen (Acetaminophen 325 Mg Tablet) 650 mg PO Q6H PRN PRN Reason: Headache/Pain, Scale 1-10 Al Hydroxide/Mg Hydroxide (Magnesium Hydrox/Alum Hydrox 30 Ml Oral.Susp) 30 ml PO Q6H PRN PRN Reason: Heartburn/Nausea Buprenorphine/Naloxone (Buprenorphine/Naloxone 2/0.5mg Tab.Subl) 0.5 tab SUBLINGUAL DAILY ALENA Hydroxyzine HCl (Hydroxyzine Hcl 25 Mg Tablet) 25 mg PO Q6H PRN PRN Reason: mild anxiety Last Admin: 09/29/24 20:53 Dose: 25 mg Magnesium Hydroxide (Milk Of Magnesia 30 Ml Oral.Susp) 30 ml PO DAILY PRN PRN Reason: Constipation Nicotine (Nicotine 21 Mg Patch.Td24) 21 mg TRANSDERMA DAILY PRN PRN Reason: nicotine craving Nicotine Polacrilex (Nicotine Polacrilex 2 Mg Gum) 2 mg BUCCAL Q2H PRN PRN Reason: Nicotine Cravings Last Admin: 09/30/24 12:44 Dose: 2 mg Trazodone HCl (Trazodone Hcl 100 Mg Tablet) 100 mg PO BEDTIME PRN PRN Reason: Insomnia Trazodone HCl (Trazodone Hcl 100 Mg Tablet) 300 mg PO BEDTIME [facility] Home Medications ?Medication ?Instructions ?Recorded ?Confirmed ?Last Taken ?Type aripiprazole 10 mg tablet 10 mg PO DAILY 09/30/2404/25 Unknown History buprenorphine 2 mg-naloxone 0.5 mg 1 tab sublingual DA GENA 09/30/24 09/30/24 1 Day Ago History sublingual tablet ~09/29/24 divalproex 500 mg tablet,extended 500 mg PO DAILY 04/2509/30/24 Unknown History release 24 hr lithium carbonate 450 mg 450 mg PO BID 09/30/2409/30 Unknown History tablet,extended release trazodone 150 mg tablet 150 mg PO BEDTIME 09/30/24 0 09/30/24 Unknown History Assessment and Plan (1) Schizoaffective disorder: Status: Acute Plan 64M PMH HCV, ivda, schizoaffective, admitted to inpatient psych. complaining of desquamating rash over cheeks facial rash can try topical steroid hcv outpatient follow up Physical Exam Vital Signs: Last Vital Signs Temp 97.4 F 09/29/24 20:00 Pulse 67 09/29/24 20:00 BP 114/61 09/29/24 20:00 Pulse Ox 97 09/29/24 20:00 O2 Del Method Room Air 09/29/24 20:00 rash over cheeks Neuro Cranial nerves: Yes CN's II-XII intact bilaterally
[2024-10-01] MEDS: Buprenorphine/Naloxone 2/0.5mg TAB.SUBL 0.5 TAB SUBLINGUAL (08:33)
--- NOTE | 2024-10-01 12:03 | HO.PSYCHPN ---
Subjective Subjective Date of Service: 10/01/24 Reason For Visit: SI Subjective Notes: Conditional Voluntary Healthcare Proxy: No Guardianship: No Medical Problems Affecting Mental Status: No Interim History: 34 yo s/p cocaine od attempt- refusing to meet with provider today- minimal engagement in admission yesterday as well - Nursing reports yesterday was irritable ready to blow up - today calmer but still irritable- not engaging with staff but engaging with peers on unit- Medication Compliance: No (refusing all meds but suboxone 1/2 2mg and trazodone at hs) Attending Groups: Intermittent Review of Systems Acute medical concerns: No Medical Review of Systems: unchanged Mental Status Exam Mental Status Exam Narrative: sitting in kitchen with peers watching movie- refusing to meet with provider, doesn't even look when called- Medications Medications Current Medications Acetaminophen (Acetaminophen 325 Mg Tablet) 650 mg PO Q6H PRN PRN Reason: Headache/Pain, Scale 1-10 Al Hydroxide/Mg Hydroxide (Magnesium Hydrox/Alum Hydrox 30 Ml Oral.Susp) 30 ml PO Q6H PRN PRN Reason: Heartburn/Nausea Buprenorphine/Naloxone (Buprenorphine/Naloxone 2/0.5mg Tab.Subl) 0.5 tab SUBLINGUAL DAILY ALENA Last Admin: 10/01/24 08:33 Dose: 0.5 tab Hydrocortisone (Hydrocortisone 1 % Cream 28.35 Gm Tube) 1 appl TOPICAL BID PRN; Protocol PRN Reason: Rash Hydroxyzine HCl (Hydroxyzine Hcl 25 Mg Tablet) 25 mg PO Q6H PRN PRN Reason: mild anxiety Last Admin: 09/29/24 20:53 Dose: 25 mg Magnesium Hydroxide (Milk Of Magnesia 30 Ml Oral.Susp) 30 ml PO DAILY PRN PRN Reason: Constipation Nicotine (Nicotine 21 Mg Patch.Td24) 21 mg TRANSDERMA DAILY PRN PRN Reason: nicotine craving Nicotine Polacrilex (Nicotine Polacrilex 2 Mg Gum) 2 mg BUCCAL Q2H PRN PRN Reason: Nicotine Cravings Last Admin: 10/01/24 08:47 Dose: 2 mg Trazodone HCl (Trazodone Hcl 100 Mg Tablet) 100 mg PO BEDTIME PRN PRN Reason: Insomnia Last Admin: 09/30/24 19:59 Dose: 100 mg Trazodone HCl (Trazodone Hcl 100 Mg Tablet) 300 mg PO BEDTIME ALENA Last Admin: 09/30/24 19:58 Dose: 300 mg Allergies Allergies Allergy/AdvReac Type Severity Reaction Status Date / Time haloperidol (From Haldol) AdvReac Muscle Verified 08/10/24 12:41 cramps Assessment & Plan Assessment & Plan (1) Antisocial personality disorder: Status: Acute Code(s): F60.2 - Antisocial personality disorder (2) Schizoaffective disorder: Status: Acute Code(s): F25.9 - Schizoaffective disorder, unspecified (3) Opiate abuse, continuous: Status: Acute Code(s): F11.10 - Opioid abuse, uncomplicated (4) Cocaine abuse: Status: Acute Code(s): F14.10 - Cocaine abuse, uncomplicated Plan Admit to see if he would consider longer term program that would focus on substance abuse- and provider housing transtiiton to [address]? and possible psychiatric follow up 10/01/24-not engaged with care team as yet- refuses meds but suboxone decrease and trazodone Reason for continued inpatient stay Substantial Risk for: rapid decompensation Time Spent With Patient Time: Total time managing care of this patient today ____ minutes.
[2024-10-02] MEDS: Buprenorphine/Naloxone 2/0.5mg TAB.SUBL 0.5 TAB SUBLINGUAL (08:00)
--- NOTE | 2024-10-02 09:52 | HO.PSYCHPN ---
Subjective Subjective Date of Service: 10/02/24 Reason For Visit: SI Interim History: met with patient; discussed with team pt asking for discharge; he denies any SI/HI or AVH; he says i'm depressed, but lots of people are...and it's not going to change until i change my life.. Pt says he was never suicidal and did not try to overdose; he says he was homeless, out in the storm, freezing cold and so self-presented to the ED and said he was suicidal in order to get admitted and out of the cold. Pt does not want help with substance abuse of any kind; he does not want medication saying it's too hard to stay consistent w/ meds while homeless. Instead he wants to discharge to a program he knows of ( [facility] ) that helps with addiction, therapy. Mental Status Exam Mental Status Exam Narrative: Pt is alert and oriented; behavior is cooperative, friendly and calm; patient is not in distress; dressed in hospital attire with unkempt hair, dry skin on face; mood is described as depressed and affect congruent; eye contact appropriate; Speech is normal rate, volume and prosody and not pressured; no psychomotor agitation/retardation present; thought process is organized and goal directed; Thought content is on tx; otherwise pertinent to relevant topics and without any delusional content, paranoid ideations or grandiosity; denies any SI/HI. Denies AVH and there is no evidence of perceptual disturbance. Patients insight and judgment appear intact. Medications Medications Current Medications Acetaminophen (Acetaminophen 325 Mg Tablet) 650 mg PO Q6H PRN PRN Reason: Headache/Pain, Scale 1-10 Al Hydroxide/Mg Hydroxide (Magnesium Hydrox/Alum Hydrox 30 Ml Oral.Susp) 30 ml PO Q6H PRN PRN Reason: Heartburn/Nausea Buprenorphine/Naloxone (Buprenorphine/Naloxone 2/0.5mg Tab.Subl) 0.5 tab SUBLINGUAL DAILY ALENA Last Admin: 10/02/24 08:00 Dose: 0.5 tab Hydrocortisone (Hydrocortisone 1 % Cream 28.35 Gm Tube) 1 appl TOPICAL BID PRN; Protocol PRN Reason: Rash Hydroxyzine HCl (Hydroxyzine Hcl 25 Mg Tablet) 25 mg PO Q6H PRN PRN Reason: mild anxiety Last Admin: 09/29/24 20:53 Dose: 25 mg Magnesium Hydroxide (Milk Of Magnesia 30 Ml Oral.Susp) 30 ml PO DAILY PRN PRN Reason: Constipation Nicotine (Nicotine 21 Mg Patch.Td24) 21 mg TRANSDERMA DAILY PRN PRN Reason: nicotine craving Nicotine Polacrilex (Nicotine Polacrilex 2 Mg Gum) 2 mg BUCCAL Q2H PRN PRN Reason: Nicotine Cravings Last Admin: 10/02/24 09:41 Dose: 2 mg Trazodone HCl (Trazodone Hcl 100 Mg Tablet) 100 mg PO BEDTIME PRN PRN Reason: Insomnia Last Admin: 10/01/24 23:04 Dose: 100 mg Trazodone HCl (Trazodone Hcl 100 Mg Tablet) 300 mg PO BEDTIME ALENA Last Admin: 10/01/24 20:07 Dose: 300 mg Allergies Allergies Allergy/AdvReac Type Severity Reaction Status Date / Time haloperidol (From Haldol) AdvReac Muscle Verified 08/10/24 12:41 cramps Assessment & Plan Assessment & Plan (1) Schizoaffective disorder: Status: Acute Code(s): F25.9 - Schizoaffective disorder, unspecified (2) Antisocial personality disorder: Status: Acute Code(s): F60.2 - Antisocial personality disorder (3) Opiate abuse, continuous: Status: Acute Code(s): F11.10 - Opioid abuse, uncomplicated (4) Cocaine abuse: Status: Acute Code(s): F14.10 - Cocaine abuse, uncomplicated Plan Patient is a 34 year old male who is admitted to at 1900 from [facility] as a CV, followed by a 3 day notice; he is on 15 minute checks. Alejandro was admitted to [facility] on 09/28/24 after he reported that he attempted to overdose on 09/19/24 on cocaine. He reports there were no precipitating factors to this overdose. He has a history of two overdose attempts in the past, and has been inpatient 15 times in the last 3 years. His history is remarkable for MDD, PTSD, cluster B personality traits, polysubstance use disorder, and opiate use disorder. He is currently on suboxone. He uses cocaine and crack daily. He is unhoused and has no support system. He endorses SI with no plan at this time. He refuses [employer]. Admit to see if he would consider longer term program that would focus on substance abuse- and provider housing transtiiton to [address]? and possible psychiatric follow up 10/01/24-not engaged with care team as yet- refuses meds but suboxone decrease and trazodone 10/02 pt asking for discharge; he denies any SI/HI or AVH; he says i'm depressed, but lots of people are...and it's not going to change until i change my life.. Pt says he was never suicidal and did not try to overdose; he says he was homeless, out in the storm, freezing cold and so self-presented to the ED and said he was suicidal in order to get admitted and out of the cold. Pt does not want help with substance abuse of any kind; he does not want medication saying it's too hard to stay consistent w/ meds while homeless. Instead he wants to discharge to a program he knows of ( [facility] ) that helps with addiction, therapy. Impression: pt is at baseline; says he was never suicidal but just feigned SI to secure a brief reprieve from homelessness. Pt has a 3 day notice in; while he'll likely continue to struggle w/ substance abuse and depression he is not in imminent risk of harm to self or others. His request for dc honored Patient educated on: diagnosis, medication risk/benefits and substance abuse Informed Consent: understands Reason for continued inpatient stay Substantial Risk for: stable for discharge Time Spent With Patient Time: Total time managing care of this patient today ____ minutes.
[2024-10-03] MEDS: Buprenorphine/Naloxone 2/0.5mg TAB.SUBL 0.5 TAB SUBLINGUAL (08:12)
--- NOTE | 2024-10-03 09:51 | P.DS_ITS ---
DS: Providers Provider Date of Service: 10/03/24 Date of admission: 09/29/24 18:29 Date of discharge: 10/03/24 Primary care physician: Unknown Physician Attending physician on admission: Leighann Vickers Consults: 09/29/24 20:17 Consult to Hospitalist Routine Comment: Consulting Provider: [facility] Hospitalists Reason For Exam: New external admit- H&P Attending physician on discharge: Moustapha Aponte DS: Diagnosis Discharge Diagnosis (1) Antisocial personality disorder: Status: Acute (2) Schizoaffective disorder: Status: Acute (3) Opiate abuse, continuous: Status: Acute (4) Cocaine abuse: Status: Acute DS: Medications Discharge Medications Home Medications: Home Medications ?Medication ?Instructions ?Recorded ?Confirmed aripiprazole 10 mg tablet 10 mg PO DAILY 09/30/2404/25 buprenorphine 2 mg-naloxone 0.5 mg 1 tab sublingual DA GENA 09/30/24 09/30/24 sublingual tablet divalproex 500 mg tablet,extended 500 mg PO DAILY 04/2509/30/24 release 24 hr lithium carbonate 450 mg 450 mg PO BID 09/30/2409/30 tablet,extended release trazodone 150 mg tablet 150 mg PO BEDTIME 09/30/24 0 09/30/24 Mental Status Exam Mental Status Exam Narrative: Pt is alert and oriented; behavior is cooperative, friendly and calm; patient is not in distress; dressed in casual attire with unkempt hair, dry skin on face; mood is described as depressed and affect congruent; eye contact appropriate; Speech is normal rate, volume and prosody and not pressured; no psychomotor agitation/retardation present; thought process is organized and goal directed; Thought content is on tx; otherwise pertinent to relevant topics and without any delusional content, paranoid ideations or grandiosity; denies any SI/HI. Denies AVH and there is no evidence of perceptual disturbance. Patients insight and judgment fair. DS: Summary Hospital Course Hospital Course: Patient is a 34 year old male with history for Schizoaffective, MDD, PTSD, cluster B personality traits, polysubstance use disorder, and opiate use disorder. He is currently on suboxone. He uses cocaine and crack daily. He is unhoused and has no support system. Presents for SI saying he tried to overdose on cocaine. Hospital course: 10/01/24-not engaged with care team as yet- refuses meds but suboxone decrease and trazodone 10/02 pt asking for discharge; he denies any SI/HI or AVH; he says i'm depressed, but lots of people are...and it's not going to change until i change my life.. Pt says he was never suicidal and did not try to overdose; he says he was homeless, out in the storm, freezing cold and so self-presented to the ED and said he was suicidal in order to get admitted and out of the cold. Pt does not want help with substance abuse of any kind; he does not want medication saying it's too hard to stay consistent w/ meds while homeless. Instead he wants to discharge to a program he knows of ( [facility] ) that helps with addiction, therapy. Impression: pt is at baseline; says he was never suicidal but just feigned SI to secure a brief reprieve from homelessness. Pt has a 3 day notice in; while he'll likely continue to struggle w/ substance abuse and depression he is not in imminent risk of harm to self or others. His request for dc honored Status at Discharge Functional status at discharge: independent ambulation Overall status at discharge: patient is back to baseline Time Spent with Patient Time attestation: Total time managing care of this patient today ____ minutes. Time spent: Greater than 30 minutes Specific discharge activities: met with patient; discussed with team; charting Discharge Plan Discharge Anticipated Discharge Date/Time: 10/03/24 11:00 Patient Disposition: Nursing Home Discharge Diagnosis: Schizoaffective disorder, depressed type [facility] [Other] - 1 Week Referral Note: Nursing Home resources [facility] ([facility]) [Other] - 1 Week Referral Note: Nursing Home resources [facility] Living Room [Other] - 1 Week Referral Note: [facility] Living Room Information [employer] [Other] - 1 Week Referral Note: business services analyst agency information N: [facility] [Other] - 1 Week Referral Note: Patient may self present for evaluation to be connected to outpatient mental health services Walk in Hours: Wednesday-Wednesday 8:00 am-8:00 pm, Wednesday 9:00 am-5:00 pm BHN: Crisis Services [Other] - 1 Week Referral Note: [facility] Crisis Services Phone Number Physician,Unknown J [Primary Care Provider, Medical] - 1 Week Discharge Medications: Discontinued buprenorphine-naloxone 2-0.5 mg tablet, sublingual 1 tab sublingual DAILY trazodone 150 mg tablet 150 mg PO BEDTIME lithium carbonate 450 mg tablet extended release 450 mg PO BID divalproex 500 mg tablet extended release 24 hr 500 mg PO DAILY aripiprazole 10 mg tablet 10 mg PO DAILY Discharge Orders: Discharge Order (Routine); Ordered 10/03/24 Ordered By: Moustapha Aponte Diet: Regular diet Activity on Discharge: As tolerated Stand Alone Forms: Patient Portal Discharge page Print Language: Divehi Care Plan Goals: Maintain mood and safe behaviors Take medications as prescribed Continue to pursue sobriety Practice coping skills Continue with outpatient providers and reach out to them as needed Health Concerns: Mood stability and behaviors Sobriety Plan of Treatment: Follow up with your PCP, psychiatric provider and other outpatient providers regarding above concerns Take medications as prescribed Assessment: Risk assessment at time of discharge:? Patient was interviewed prior to discharge and found to be fully oriented and without any SI or HI. Patient has improved insight and judgment and wants to continue treatment. Patient is not in imminent risk of harm to self or others and has a safety plan that includes presenting to the closest ER or calling 911 if feeling unsafe.? Patient has been observed closely by nursing and unit staff throughout admission; patient has not engaged in any behaviors that suggest dangerousness to self or others and has demonstrated appropriate behaviors and impulse control Discharge Date/Time: 10/03/24 11:00
--- NOTE | 2024-10-03 11:34 | PC.NURSE ---
late entry 1100 Ronnie was given Narcan to take home. He was upset in the lobby with [facility] re not finding his repairer switchgear. He took all discharge papers and likely the narcan, they were all together, and threw it all in the trash.
== END 2024-10-03 11:00 | disposition home or self-care (01) | DRG 750 ==
PROVIDERS: Admitting Provider Psychiatry & Neurology Psychiatry; Visit Provider Psychiatry & Neurology Psychiatry
DX: F25.1 Schizoaffective disorder, depressive type (principal); B19.20 Unspecified viral hepatitis C without hepatic coma; F11.20 Opioid dependence, uncomplicated; F60.2 Antisocial personality disorder; F14.10 Cocaine abuse, uncomplicated; R21 Rash and other nonspecific skin eruption

== ENCOUNTER → 2024-09-29 18:29 | Outpatient (BNV) | payer OTHER, SELFPAY | PROVIDERS: Admitting Provider Psychiatry & Neurology Psychiatry; Visit Provider Internal Medicine | DX: Z02.2 Encounter for examination for admission to residential institution (principal) | CPT/HCPCS: 99429 ==

== ENCOUNTER → 2024-09-29 18:29 | Outpatient (BNV) | payer OTHER, SELFPAY | PROVIDERS: Admitting Provider Psychiatry & Neurology Psychiatry; Visit Provider Psychiatry & Neurology Psychiatry | DX: F60.2 Antisocial personality disorder (principal); F25.1 Schizoaffective disorder, depressive type; F11.10 Opioid abuse, uncomplicated; F14.10 Cocaine abuse, uncomplicated | CPT/HCPCS: 90792; 99232; 99238 ==

== ENCOUNTER 2024-11-16 22:21 | Emergency (ER) | payer OTHER, SELFPAY ==
[2024-11-16 22:28] VITALS: BP 129/81; PULSE 107; RESP 20; TEMP 37.1; O2SAT 98
[2024-11-16 22:32] VITALS: BP 129/81; BP 130/90; PULSE 107; PULSE 120; RESP 20; TEMP 37.1; O2SAT 94; O2SAT 98; BMI 36.2
[2024-11-16 22:51] LABS: MANUAL DIFF FLAG NO
[2024-11-16 22:53] LABS: Hematocrit 41.8 % (42.0-52.0); Hemoglobin 14.2 g/dl (14.0-18.0); Imm Gran Abs Auto 0.05 X10*3/uL (0.00-0.03); Imm Gran Pct Auto 0.3 % (0.0-0.4); Lymphocytes Absolute Auto 1.8 X10*3/uL (1.2-4.9); Mean Corpuscular HGB Conc 34.0 g/dl (31.0-36.0); Mean Corpuscular Hemoglobin 26.3 pg (27.0-33.0); Mean Corpuscular Volume 77.6 fL (80.0-98.0); NRBC Abs Auto 0.000 X10*3/uL (0.0-0.012); NRBC Pct Auto 0.0 /100WBC (0.0-0.2); Platelet Count 190 X10*3/uL (160-400); Red Blood Count 5.39 X10*6/uL (4.60-5.80); White Blood Count 17.4 X10*3/uL (4.8-10.8)
[2024-11-16 23:06] LABS: Alanine Aminotransferase 53 U/L (0-40); Albumin Level 5.0 g/dL (3.5-5.0); Alkaline Phosphatase 101 U/L (39-117); Anion Gap 13 (12-20); Aspartate Amino Transferase 51 U/L (5-37); Blood Urea Nitrogen 24 mg/dL (9-16); Calcium 9.7 mg/dL (8.4-10.2); Carbon Dioxide 23 mmol/L (22-29); Chloride 109 mmol/L (96-108); Creatinine Clr Calc Pharmacy 129.8; Estimated Glomerular Filt Rate > 60; Magnesium 2.1 mg/dL (1.6-2.6); Potassium 4.2 mmol/L (3.3-5.1); Sodium 141 mmol/L (135-145); Total Protein 8.2 g/dL (6.5-8.0)
[2024-11-16 23:09] LABS: Acetaminophen LAB < 3 mcg/mL (<30); Salicylate < 5.0 mg/dL (15-30)
--- OUTSIDE RECORDS SUMMARY | 2024-11-16 23:32 | XMS_ITS | Clinical Summary ---
Author Organization Agent [facility] Address [address] [place] [address] Care Team Providers Care Underwater Hunter Trapper Name Role Phone Shaheed Young MD Primary Care Provider [phone] Allergies No known active allergies Medications Medication [...] Advance Directives For more information, please contact: [phone] Latest Code Status on File Code Status Date Activated Date Inactivated Comments Full Code 09/12/2022 8:06 PM 09/28/2022 6:09 PM This code status was ascertained in the following way: per unit protocol. Care Teams Underwater Hunter Trapper Relationship Specialty Start Date End Date Shaheed Young MD [address] [place] [address] PCP - General Internal Medicine 09/12/22
--- NOTE | 2024-11-16 23:52 | HO.NURTONUR ---
Addendum entered by Jennifer Garcia RN 11/17/24 00:46: RN called [facility] for methadone verification- Spoke to DARNELL singh who stated pt was last seen/dosed on 11/12/24- maintenance dose of 30mgs (since 11/06/24). Pt reported to RN that he was last dosed on 11/16/24 and was given 40 mg. pt is currently asleep so will f/u with him or day RN in the am. Original Note: pt states hes on 40 mg of methadone- last dosed this AM. Pt states he gets his methadone at [facility]. RN to call for verification.
--- NOTE | 2024-11-17 05:34 | ED_ITS ---
HPI - General Adult General Chief complaint: Psychiatric Symptoms Stated complaint: SI states smoked crack today, unhoused Time Seen by Provider: 11/16/24 22:34 Source: patient Limitations: no limitations History of Present Illness ED Provider: Dorota Olson PA-C HPI narrative: 34-year-old male with a history of hepatitis-C, schizoaffective disorder, antisocial personality disorder, polysubstance abuse on methadone who presents with SI. Patient admits that he is currently homeless. He states that he relapsed on crack. Today, the patient called police, and was making comments about self-harm, that he was suicidal, without a plan. Related Data Home Medications ?Medication ?Instructions ?Recorded ?Confirmed acetaminophen 325 mg tablet 650 mg PO Q6H Pain 5 11/17/24 hydroxyzine HCl 25 mg tablet 25 mg PO QID Anxiety 10/3011/17/24 melatonin 5 mg tablet 5 mg PO BEDTIME 11/17/24 methadone 30 mg PO DAILY 11/17/2410/30 nicotine (polacrilex) 4 mg buccal 4 mg PO Q2H 11/17/24 11/17/24 lozenge trazodone 50 mg tablet 100 mg PO BEDTIME PRN Anxiet y 11/17/24 11/17/24 Allergies Allergy/AdvReac Type Severity Reaction Status Date / Time haloperidol (From Haldol) AdvReac Muscle Verified 11/16/24 22:42 cramps PMFSH Past Medical History Medical History HCV (hepatitis C virus) MDD (major depressive disorder), recurrent episode, moderate Severe opioid use disorder on maintenance therapy Antisocial personality disorder Schizophrenia Social History Social History Household Members: None Housing: Homeless Housing Other:: Group homes, I'm skipping around [facility] to another. Do you presently have visiting nurse or other home services: No Unable to assess alcohol history related to: Refusing to respond Patient Tobacco Use Status: Refuse Tobacco use screen Tobacco use type: Cigarette Cigarette Packs Per Day: 1 Cigarettes Per Day: 20.0 Years Smoked: UNKNOWN Smoked in Last 30 Days: Yes e-Cigarette/Vaping Use: Currently Using Second Hand Smoke Exposure: No Use of substances other than those prescribed or required for medical reasons: Yes Substance Use Type: Crack/Cocaine Last Used Substance: Hours (ago) Advance Directives: No Do you have a plan to hurt others: No Plan service: No Sexual orientation: Decline to Answer Physical Exam ED Vital Signs: Vital Signs - 24 hr 11/16/24 22:28 11/16/24 22:32 Temperature 98.7 F 98.7 F Pulse Rate 107 H 107 H Respiratory Rate 20 20 Blood Pressure 129/81 129/81 Pulse Oximetry 98 98 Oxygen Delivery Method Room Air Room Air BMI result Body Mass Index 36.2 Course Reevaluation(s) Reevaluation #1: Time: 05:38 Date: 11/17/24 Provider: SONJA Bosch Patient in physician observation for psychiatric evaluation.? No acute events reported overnight. No current complaints. VS stable.? Pending CARE team evaluation. Will continue to monitor. Reevaluation #2: Time: 06:07 Date: 11/17/24 Provider: Chaparrita Mondragon DO Patient in physician observation for psychiatric evaluation.? No acute events reported overnight. No current complaints. VS stable.? Pending CARE team evaluation. Will continue to monitor. Reevaluation #3: Time: 1432 Date: 11/17/24 Provider: Chaparrita Mondragon DO Physician observation ended at 1432 Patient to be admitted as inpatient to psychiatry. - [facility] Medications Administered Discontinued Medications Generic Name Dose Route Start Last Admin Trade Name Nikky PRN Reason Stop Dose Admin Acetaminophen 650 mg 11/17/24 09:30 11/17/24 17:57 Acetaminophen 325 Mg Tablet PO 650 mg Q6H ALENA Administration Hydroxyzine HCl 25 mg 11/17/24 09:30 11/17/24 10:52 Hydroxyzine Hcl 25 Mg Tablet PO Not Given QID ALENA Methadone HCl 30 mg 11/17/24 10:00 11/17/24 10:38 Methadone Hcl 20 Mg/2 Ml Oral.Conc PO 30 mg DAILY ALENA Administration Nicotine Polacrilex 4 mg 11/17/24 09:30 11/17/24 10:52 Nicotine Polacrilex Lozenge 4 Mg Lozenge BUCCAL Not Given Q2H ALENA Medical Decision Making Medical Decision Making MDM Narrative: 34-year-old male with a history of hepatitis-C, schizoaffective disorder, antisocial personality disorder, polysubstance abuse on methadone who presents with SI. Patient admits that he is currently homeless. He states that he relapsed on crack. Today, the patient called police, and was making comments about self-harm, that he was suicidal, without a plan. Problem: Psychiatric illness, housing and security, polysubstance abuse History: Per patient I have considered the following differential diagnoses: SI, HI, drug/alcohol intoxication, decompensated psychiatric illness Plan: We will screen basic labs, serum ethanol and drug screen he will be referred to the care team. I have independently reviewed the following tests: Labs: Leukocytosis with left shift, not anemic, no electrolyte abnormality, ethanol less than 10, drug screen pending Differential Diagnosis Differential Diagnoses: The differential diagnosis associated with the presentation includes See medical decision making Admission/Observation Consideration of admission/observation: Escalation of care including admission/observation considered May require detox versus inpatient psychiatric admission Consult Healthcare Provider Management of the patient was discussed with: Behavioral Health Provider Lab Data MDM Lab Attestation statement: I reviewed the patient's lab results. 11/16/24 22:46 11/16/24 22:46 Labs: Lab Results 11/16/24 11/17/24 11/17/24 Range/Units 22:46 09:06 13:59 WBC 17.4 H (4.8-10.8) X10*3/uL RBC 5.39 (4.60-5.80) X10*6/uL Hgb 14.2 (14.0-18.0) g/dl Hct 41.8 L (42.0-52.0) % MCV 77.6 L (80.0-98.0) fL MCH 26.3 L (27.0-33.0) pg MCHC 34.0 (31.0-36.0) g/dl RDW 14.5 (11.0-16.0) % Plt Count 190 (160-400) X10*3/uL MPV 12.3 (9.4-12.4) fL Immature Gran % (Auto) 0.3 (0.0-0.4) % Neut % (Auto) 84.7 H (45-73) % Lymph % (Auto) 10.4 L (20-40) % [place] % (Auto) 4.4 (2-11) % Eos % (Auto) 0.0 (0-4) % Baso % (Auto) 0.2 (0-2) % Lymph # (Auto) 1.8 (1.2-4.9) X10*3/uL [place] # (Auto) 0.8 (0.1-1.2) X10*3/uL Eos # (Auto) 0.0 (0.0-0.4) X10*3/uL Baso # (Auto) 0.0 (0.0-0.2) X10*3/uL Abs Immat Gran (auto) 0.05 H (0.00-0.03) X10*3/uL Absolute Neuts (auto) 14.7 H (2.0-8.3) x10*3/uL Absolute Nucleated RBC 0.000 (0.0-0.012) X10*3/uL Nucleated RBC % (auto) 0.0 (0.0-0.2) /100WBC Sodium 141 (135-145) mmol/L Potassium 4.2 (3.3-5.1) mmol/L Chloride 109 H (96-108) mmol/L Carbon Dioxide 23 (22-29) mmol/L Anion Gap 13 (12-20) BUN 24 H (9-16) mg/dL Creatinine 1.16 (0.5-1.4) mg/dL Estim Creat Clear Calc 129.8 Estimated GFR > 60 Random Glucose 117 H (60-115) mg/dL Calcium 9.7 (8.4-10.2) mg/dL Magnesium 2.1 (1.6-2.6) mg/dL Total Bilirubin 0.7 (0.0-1.0) mg/dL AST 51 H (5-37) U/L ALT 53 H (0-40) U/L Alkaline Phosphatase 101 (39-117) U/L Total Protein 8.2 H (6.5-8.0) g/dL Albumin 5.0 (3.5-5.0) g/dL Urine Color Dark Yellow Urine Appearance Cloudy Urine pH 5.5 (5.0-9.0) Ur Specific [place] >= 1.030 H (1.005-1.025) Urine Protein 30 (1+) H (Neg-Trace) mg/dL Urine Glucose (UA) Negative (Negative) mg/dL Urine Ketones Trace (Negative) mg/dL Urine Blood Negative (Negative) Urine Nitrite Negative (Negative) Ur Leukocyte Esterase Negative (Negative) Urine RBC 0-2 (0-2) /HPF Urine WBC 0-5 (0-5) /HPF Ur Squamous Epith Cells 3-5 (0-2) /HPF Other Crystals Present Urine Bacteria None Seen (None Seen) Hyaline Casts >20 (0-2) /LPF Salicylates < 5.0 L (15-30) mg/dL Urine Opiates Screen POSITIVE H (Not Detect) Ur Buprenorphine Scrn Not Detected (Not Detect) ng/mL Ur Oxycodone Screen Not Detected (Not Detect) ng/mL Urine Methadone Screen Positive H (Not Detect) ng/mL Urine Fentanyl Screen POSITIVE H (Not Detect) Acetaminophen < 3 (<30) mcg/mL Ur Barbiturates Screen Not Detected (Not Detect) Ur Phencyclidine Scrn Not Detected (Not Detect) Ur Amphetamines Screen Not Detected (Not Detect) U Benzodiazepines Scrn Not Detected (Not Detect) Urine Cocaine Screen POSITIVE H (Not Detect) U Marijuana (THC) Screen Not Detected (Not Detect) Ethyl Alcohol < 10 mg/dL COVID-19 (NUNU) Negative (Negative) COVID-19 Clin Com See Note Discharge Plan Discharge Clinical Impression: Polysubstance abuse, Suicidal ideation Patient Disposition: Xfer Psychiatric Hosp Transfer Details: [facility] Prescriptions: No Action acetaminophen 325 mg tablet 650 mg PO Q6H trazodone 50 mg tablet 100 mg PO BEDTIME PRN (Reason: Anxiety) hydroxyzine HCl 25 mg tablet 25 mg PO QID nicotine (polacrilex) 4 mg lozenge 4 mg PO Q2H melatonin 5 mg tablet 5 mg PO BEDTIME methadone 30 mg PO DAILY Interventions: [place]-Suicide Risk Severity Scale Last Done: 11/16/24 23:37 Admission Worksheet (ED) Last Done: 11/17/24 14:32 Acute Care Transfer Worksheet (ED) Last Done: 11/17/24 18:48 Discharge Date/Time: 11/17/24 18:49 Print Language: Luxembourgish
--- NOTE | 2024-11-17 07:46 | HE.PHANOTE ---
methadone confirmation form patient takes 30mg from [facility]. last does 11/12
--- NOTE | 2024-11-17 07:51 | PC.NURSE ---
Assumed care, report received. Pt is currently sleeping, safety maintained.
[2024-11-17 09:18] LABS: Appearance Urine Cloudy; Glucose Urine UA Negative (Negative); PH 5.5 (5.0-9.0); Specific Gravity - Urine >= 1.030 (1.005-1.025); UMIC TRIGGER UACC YES
[2024-11-17 09:27] LABS: Cannabinoid Screen Urine Not Detected (Not Detect)
[2024-11-17 09:30] LABS: Other Crystals Urine Present
[2024-11-17] MEDS: methADONE HCl 20 MG/2 ML ORAL.CONC 30 MG PO (10:38)
--- NOTE | 2024-11-17 13:55 | MHC.CARE ---
Pt was accepted to [facility] for today. ETA is TBD pending negative covid results and nurse to nurse report. Pod RN Melisa was notified of acceptance and given rn to rn number ([phone] nurse Karla). The accepting provider is Dr. Siu and the address is [address] [place] [id number].
--- NOTE | 2024-11-17 14:25 | MHC.EDTECH ---
Patient was refused the vitals, DARNELL Vincent aware.
[2024-11-17 14:38] LABS: COVID-19 Test Negative (Negative); IDNOW Serial# 55D5AD1C
--- NOTE | 2024-11-17 16:04 | MHC.CARE ---
BH6 Alejandro Jeffery has been accepted to [facility] for today. The ETA is next available and the accepting provider is Dr. Valdivia. [place] [address].
[2024-11-17 18:48] VITALS: BP 129/81; PULSE 107; RESP 20; TEMP 37.1
== END 2024-11-17 18:49 ==
PROVIDERS: Emergency Medicine; Physician Assistant Medical; Emergency Provider Student in an Organized Health Care Education/Training Program
DX: F25.9 Schizoaffective disorder, unspecified (principal); R45.851 Suicidal ideations; F14.10 Cocaine abuse, uncomplicated; F33.1 Major depressive disorder, recurrent, moderate; Z59.00 Homelessness unspecified; Z79.899 Other long term (current) drug therapy; Z51.81 Encounter for therapeutic drug level monitoring; Z11.52 Encounter for screening for COVID-19
CPT/HCPCS: 36415; 80053; 80143; 80179; 80307; 81001; 83735; 85025; 87635; 99285; S9485

== ENCOUNTER 2024-12-29 13:27 | Inpatient (IN) | payer OTHER, SELFPAY ==
[2024-12-29 13:53] VITALS: RESP 20
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
[2024-12-30 08:00] VITALS: RESP 18
--- NOTE | 2024-12-30 08:26 | HE.PHANOTE ---
RE: METHADONE Methadone dose verified with Cira PATRICK at [facility] . Dose is 30 mg last given 12/27/24 @0829.
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
[2024-12-30] MEDS: methADONE HCl 20 MG/2 ML ORAL.CONC 30 MG PO (10:44)
[2024-12-31] MEDS: methADONE HCl 20 MG/2 ML ORAL.CONC 30 MG PO (07:52)
[2024-12-31 08:00] VITALS: BP 112/69; PULSE 69; RESP 18; O2SAT 97
--- NOTE | 2024-12-31 11:19 | P.PNPSI_ITS ---
Subjective Subjective Date of Service: 12/31/24 Reason For Visit: PTSD, Depression, SI, Cocaine/ Opiate use d/o Interim History: Met with patient; discussed with team Patient remains resistive to care provocative and bullyish towards peers. Sitting in the TV room, telling peers they can not join him. Earlier today when a peer was severely agitated and destroying the exit signs of the unit, patient came into the hallway and provoked that peer, yelling to him to rip down another sign, do it again, do it again... Being very difficult to redirect, refusing nurses request to stop, telling her he thought it was funny (and only stopping when security present). Patient refusing vitals, refusing labs, refusing to engage with staff, refusing to answer regarding safety... Refuses all groups. Patient continues to refuse medication. On writer editor's inquiry, patient says it does not help me at all that no medication has ever helped him; he tells writer editor all he needs is housing and since he is homeless, he can not get medication refills anyway... He refuses any medication options. To writer editor, he denied any active SI. He says he hates his life and chronically has passive wish but that he now wants to get into a treatment program. He goes on to say that no one will ever help him with these things. Catalyst Operator discussed how the last time social work got him into a treatment program, on the day of discharge he refused to go; patient remembers this but said he can not explain why he refused other than he just decided he no longer wanted to go. Catalyst Operator explained that it is fine if he does not want to take medications but that to remain on the unit for help with aftercare, he will need to demonstrate appropriate behaviors with peers and staff. Catalyst Operator highlighted his numerous rude comments to staff, which included intermittent verbal threats; discussed how he was going to need to share the television room (earlier he had started verbal altercation with a peer who also wanted to share the TV room, patient refusing to do so, and only redirected when security was called and present) and that continued inappropriate behavior was going to result with administrative discharge. Patient asked if he could then discharged today. He asked if he could be discharged writer editor way since it was still early enough for him to get to [facility] detox and get a bed. Catalyst Operator agreed with plan. While getting discharge paperwork, asked writer editor if he could have a sharpie marker so he could write on things on his way out. MSE: Pt is alert and oriented; behavior is mostly resistant to treatment, rude, dismissive and intentionally provocative to both peers; patient is not in dist ress; dressed in casual/casual attire with unkempt hair, glasses, eczema; mood is described as depressed and affect congruent, constricted; eye contact appropriate; Speech is normal rate, volume and prosody and not pressured; no psychomotor agitation/retardation present; thought process is organized and goal directed; Thought content is on life situation; otherwise pertinent to relevant topics and without any delusional content, paranoid ideations or grandiosity; denies any SI/HI. Denies AVH and there is no evidence of perceptual disturbance. Patients insight and judgment at baseline and adequate Diagnostics Vital Signs (24Hr): Vital Signs - 24 hr 12/31/24 08:00 Pulse Rate 69 Respiratory Rate 18 Blood Pressure 112/69 Pulse Oximetry 97 Oxygen Delivery Method Room Air Medications Medications Current Medications Acetaminophen (Acetaminophen 325 Mg Tablet) 650 mg PO Q6H PRN PRN Reason: Headache/Pain, Scale 1-10 Al Hydroxide/Mg Hydroxide (Magnesium Hydrox/Alum Hydrox 30 Ml Oral.Susp) 30 ml PO Q6H PRN PRN Reason: Heartburn/Nausea Aripiprazole (Aripiprazole 10 Mg Tablet) 10 mg PO DAILY [facility] Last Admin: 12/31/24 10:21 Dose: Not Given Baclofen (Baclofen 10 Mg Tablet) 10 mg PO TID PRN PRN Reason: cravings Hydroxyzine HCl (Hydroxyzine Hcl 25 Mg Tablet) 25 mg PO Q6H PRN PRN Reason: mild anxiety Lorazepam (Lorazepam 1 Mg Tablet) 1 mg PO Q4H PRN PRN Reason: Anxiety Magnesium Hydroxide (Milk Of Magnesia 30 Ml Oral.Susp) 30 ml PO DAILY PRN PRN Reason: Constipation Methadone HCl (Methadone Hcl 20 Mg/2 Ml Oral.Conc) 30 mg PO DAILY [facility] Last Admin: 12/31/24 07:52 Dose: 30 mg Nicotine Polacrilex (Nicotine Polacrilex 2 Mg Gum) 4 mg BUCCAL Q2H PRN PRN Reason: Nicotine Cravings Last Admin: 12/31/24 07:53 Dose: 4 mg Olanzapine (Olanzapine 5 Mg Tablet) 5 mg PO Q4H PRN PRN Reason: agitation Trazodone HCl (Trazodone Hcl 50 Mg Tablet) 50 mg PO BEDTIME MRX1 PRN PRN Reason: Insomnia Allergies Allergies Allergy/AdvReac Type Severity Reaction Status Date / Time haloperidol (From Haldol) AdvReac Muscle Verified 12/29/24 13:55 cramps Assessment & Plan Assessment & Plan (1) MDD (major depressive disorder), recurrent episode, moderate: Status: Acute Code(s): F33.1 - Major depressive disorder, recurrent, moderate Assessment and Plan: Rule out schizoaffective disorder (2) PTSD (post-traumatic stress disorder): Status: Acute Code(s): F43.10 - Post-traumatic stress disorder, unspecified (3) Antisocial personality disorder: Status: Acute Code(s): F60.2 - Antisocial personality disorder (4) Cocaine abuse: Status: Acute Code(s): F14.10 - Cocaine abuse, uncomplicated (5) Severe opioid use disorder on maintenance therapy: Status: Acute Code(s): F11.20 - Opioid dependence, uncomplicated (6) HCV (hepatitis C virus): Status: Acute Code(s): B19.20 - Unspecified viral hepatitis C without hepatic coma (7) Homeless: Status: Acute Code(s): Z59.00 - Homelessness unspecified Plan Pt is a 34 yo male with hx MDD (schizoaffective?), PTSD, anti-social PD, opiate/cocaine use disorder on methadone, hep C, who presents for depression and SI after he flagged down a police shift commander saying he was going to hang himself. In the ED, patient tried to elope, destroyed property and needed to be restrained. Patient limited historian and not willing to engage saying I am tired... I just want to sleep... Formulation/clinical reasoning Typical presentation for patient who is usually irritable on admission, refuses treatment interventions; history of malingering with patient eventually a knowledge Ng that he manufactured SI since he was homeless. Currently patient not willing to engage; will restart Abilify and monitor. Will hold off restarting Depakote since patient has hep C and not sure if he is compliant with medication; also not sure patient's diagnosis and whether or not he has schizoaffective/bipolar disorder Hospital course: 12/31 Patient remains resistive to care provocative and bullyish towards peers. Sitting in the TV room, telling peers they can not join him. Earlier today when a peer was severely agitated and destroying the exit signs of the unit, patient came into the hallway and provoked that peer, yelling to him to rip down another sign, do it again, do it again... Being very difficult to redirect, refusing nurses request to stop, telling her he thought it was funny (and only stopping when security present). Patient refusing vitals, refusing labs, refusing to engage with staff, refusing to answer regarding safety... Refuses all groups. Patient continues to refuse medication. On writer editor's inquiry, patient says it does not help me at all that no medication has ever helped him; he tells writer editor all he needs is housing and since he is homeless, he can not get medication refills anyway... He refuses any medication options. To writer editor, he denied any active SI. He says he hates his life and chronically has passive wish but that he now wants to get into a treatment program. He goes on to say that no one will ever help him with these things. Catalyst Operator discussed how the last time social work got him into a treatment program, on the day of discharge he refused to go; patient remembers this but said he can not explain why he refused other than he just decided he no longer wanted to go. Catalyst Operator explained that it is fine if he does not want to take medications and that he can remain on the unit in order to get help with aftercare. However, writer editor explained that if he is to remain on the unit, he will need to demonstrate appropriate behaviors with peers and staff. Catalyst Operator highlighted his numerous rude comments to staff, which included intermittent verbal threats; discussed how he was going to need to share the television room (earlier he had started verbal altercation with a peer who also wanted to share the TV room, patient refusing to do so, and only redirected when security was called and present) and that continued inappropriate behavior was going to result with administrative discharge. Patient thought about it and then asked writer editor if he could then discharged today. He asked if he could be discharged right way since it was still early enough for him to get to [facility] detox and get a bed. Catalyst Operator agreed with plan. While getting discharge paperwork, asked writer editor if he could have a sharpie marker so he could write on things on his way out. Impression: Patient is at baseline (having returned to baseline very soon after admission). Patient's current presentation and behaviors on the unit are typical of past behaviors. Patient has a history of malingering as well, saying that he is suicidal to get a place to stay and then refusing treatment and wanting discharge. Catalyst Operator does not doubt that patient struggles with depression; and his ongoing struggles with addiction certainly compound his depressive symptoms. Patient however remains resistant to treatment of any kind; he is not interested in any treatments available to him on the unit and instead engages in inappropriate and provocative behavior with peers and staff and interferes with other people's treatment. While he reports having chronic, daily passive wish, he denies any active SI and is future oriented, planning to try to get into a specific detox program; patient also has an extensive history of self- presenting when feeling unsafe. He will very likely continue to struggle with depressive symptoms, intermittent SI and substance abuse and will likely again, at some point in the future, wander into unsafe behaviors and situation. However, these struggles will not resolve with longer inpatient stay. Rather, they require sustained commitment to outpatient treatment and sobriety, with which patient is not yet ready to pursue. Patient seems to agree that he is not benefitting from and does not need inpatient admission; he asks for discharge. Catalyst Operator agrees with request for discharge. Plan: Twelve B Q 15 minute checks Restart methadone Restart Abilify 10 mg daily Will hold off on Depakote and lithium which he has been on in the past Patient educated on: diagnosis, medication risk/benefits, substance abuse and therapeutic strategies Informed Consent: understands Reason for continued inpatient stay Substantial Risk for: stable for discharge Time Spent With Patient Time: Total time managing care of this patient today ____ minutes.
--- NOTE | 2024-12-31 11:24 | P.DS_ITS ---
DS: Providers Provider Date of Service: 12/31/24 Date of admission: 12/29/24 13:27 Date of discharge: 12/31/24 Primary care physician: Unknown Physician Attending physician on admission: Moustapha Aponte Consults: 12/29/24 14:09 Consult to Hospitalist Routine Comment: Consulting Provider: [facility] Reason For Exam: Admission Physical Attending physician on discharge: Moustapha Aponte DS: Diagnosis Discharge Diagnosis (1) MDD (major depressive disorder), recurrent episode, moderate: Status: Acute (2) PTSD (post-traumatic stress disorder): Status: Acute (3) Antisocial personality disorder: Status: Acute (4) Cocaine abuse: Status: Acute (5) Severe opioid use disorder on maintenance therapy: Status: Acute (6) HCV (hepatitis C virus): Status: Acute (7) Homeless: Status: Acute DS: Medications Discharge Medications Home Medications: Home Medications ?Medication ?Instructions ?Recorded ?Confirmed methadone 30 mg PO DAILY 11/17/2403/25 DS: Summary Hospital Course Hospital Course: Pt is a 34 yo male with hx MDD (schizoaffective?), PTSD, anti-social PD, opiate/cocaine use disorder on methadone, hep C, who presents for depression and SI after he flagged down a police and fire dispatcher saying he was going to hang himself. In the ED, patient tried to elope, destroyed property and needed to be restrained. Patient limited historian and not willing to engage saying I am tired... I just want to sleep... Formulation/clinical reasoning Typical presentation for patient who is usually irritable on admission, refuses treatment interventions; history of malingering with patient eventually a knowledge Ng that he manufactured SI since he was homeless. Currently patient not willing to engage; will restart Abilify and monitor. Will hold off restarting Depakote since patient has hep C and not sure if he is compliant with medication; also not sure patient's diagnosis and whether or not he has schizoaffective/bipolar disorder Hospital course: 12/31 Patient remains resistive to care provocative and bullyish towards peers. Sitting in the TV room, telling peers they can not join him. Earlier today when a peer was severely agitated and destroying the exit signs of the unit, patient came into the hallway and provoked that peer, yelling to him to rip down another sign, do it again, do it again... Being very difficult to redirect, refusing nurses request to stop, telling her he thought it was funny (and only stopping when security present). Patient refusing vitals, refusing labs, refusing to engage with staff, refusing to answer regarding safety... Refuses all groups. Patient continues to refuse medication. On commercial insurance underwriter's inquiry, patient says it does not help me at all that no medication has ever helped him; he tells commercial insurance underwriter all he needs is housing and since he is homeless, he can not get medication refills anyway... He refuses any medication options. To commercial insurance underwriter, he denied any active SI. He says he hates his life and chronically has passive wish but that he now wants to get into a treatment program. He goes on to say that no one will ever help him with these things. Accounting Auditor discussed how the last time social work got him into a treatment program, on the day of discharge he refused to go; patient remembers this but said he can not explain why he refused other than he just decided he no longer wanted to go. Accounting Auditor explained that it is fine if he does not want to take medications and that he can remain on the unit in order to get help with aftercare. However, commercial insurance underwriter explained that if he is to remain on the unit, he will need to demonstrate appropriate behaviors with peers and staff. Accounting Auditor highlighted his numerous rude comments to staff, which included intermittent verbal threats; discussed how he was going to need to share the television room (earlier he had started verbal altercation with a peer who also wanted to share the TV room, patient refusing to do so, and only redirected when security was called and present) and that continued inappropriate behavior was going to result with administrative discharge. Patient thought about it and then asked commercial insurance underwriter if he could then discharged today. He asked if he could be discharged right way since it was still early enough for him to get to [facility] detox and get a bed. Accounting Auditor agreed with plan. While getting discharge paperwork, asked commercial insurance underwriter if he could have a sharpie marker so he could write on things on his way out. Impression: Patient is at baseline (having returned to baseline very soon after admission). Patient's current presentation and behaviors on the unit are typical of past behaviors. Patient has a history of malingering as well, saying that he is suicidal to get a place to stay and then refusing treatment and wanting discharge. Accounting Auditor does not doubt that patient struggles with depression; and his ongoing struggles with addiction certainly compound his depressive symptoms. Patient however remains resistant to treatment of any kind; he is not interested in any treatments available to him on the unit and instead engages in inappropriate and provocative behavior with peers and staff and interferes with other people's treatment. While he reports having chronic, daily passive wish, he denies any active SI and is future oriented, planning to try to get into a specific detox program; patient also has an extensive history of self- presenting when feeling unsafe. He will very likely continue to struggle with depressive symptoms, intermittent SI and substance abuse and will likely again, at some point in the future, wander into unsafe behaviors and situation. However, these struggles will not resolve with longer inpatient stay. Rather, they require sustained commitment to outpatient treatment and sobriety, with which patient is not yet ready to pursue. Patient seems to agree that he is not benefitting from and does not need inpatient admission; he asks for discharge. Accounting Auditor agrees with request for discharge. Status at Discharge Functional status at discharge: independent ambulation Overall status at discharge: patient is back to baseline Time Spent with Patient Time attestation: Total time managing care of this patient today _40___ minutes. Time spent: Greater than 30 minutes Specific discharge activities: Met with patient; discussed with team; charting Discharge Plan Discharge Anticipated Discharge Date/Time: 12/31/24 11:22 Patient Disposition: Assisted Discharge Diagnosis: MDD Referrals: Physician,Unknown J [Primary Care Provider, Medical] - 1 Week Discharge Medications: Continued methadone 30 mg PO DAILY Discharge Orders: Discharge Order (Routine); Ordered 12/31/24 Ordered By: Moustapha Aponte Diet: Regular diet Activity on Discharge: As tolerated Stand Alone Forms: Patient Portal Discharge page, Community Support Print Language: Kyrgyz Care Plan Goals: Maintain mood and safe behaviors Take medications as prescribed Continue to pursue sobriety Practice coping skills Continue with outpatient providers and reach out to them as needed Health Concerns: Mood stability and behaviors Sobriety Plan of Treatment: Follow up with your PCP, psychiatric provider and other outpatient providers regarding above concerns Take medications as prescribed Assessment: Risk assessment at time of discharge:? Patient was interviewed prior to discharge and found to be fully oriented and without active SI. Patient has improved and was future oriented. Patient is at baseline and not in imminent risk of harm to self or others and would presenting to the closest ER or calling 911 if feeling unsafe.? Discharge Date/Time: 12/31/24 11:54
== END 2024-12-31 11:54 | disposition home or self-care (01) | DRG 751 ==
PROVIDERS: Admitting Provider Psychiatry & Neurology Psychiatry; Visit Provider Psychiatry & Neurology Psychiatry
DX: F33.1 Major depressive disorder, recurrent, moderate (principal); R45.851 Suicidal ideations; F11.20 Opioid dependence, uncomplicated; Z59.01 Sheltered homelessness; F43.10 Post-traumatic stress disorder, unspecified; F60.2 Antisocial personality disorder; F14.10 Cocaine abuse, uncomplicated; B19.20 Unspecified viral hepatitis C without hepatic coma

== ENCOUNTER → 2024-12-29 13:27 | Outpatient (BNV) | payer OTHER, SELFPAY | PROVIDERS: Admitting Provider Psychiatry & Neurology Psychiatry; Visit Provider Nurse Practitioner Family | DX: F11.20 Opioid dependence, uncomplicated (principal) | CPT/HCPCS: 99221 ==

== ENCOUNTER → 2024-12-29 13:27 | Outpatient (BNV) | payer OTHER, SELFPAY | PROVIDERS: Admitting Provider Psychiatry & Neurology Psychiatry; Visit Provider Psychiatry & Neurology Psychiatry | DX: F33.1 Major depressive disorder, recurrent, moderate (principal); F60.2 Antisocial personality disorder; F14.10 Cocaine abuse, uncomplicated; F43.11 Post-traumatic stress disorder, acute; F11.20 Opioid dependence, uncomplicated; B19.20 Unspecified viral hepatitis C without hepatic coma; Z59.00 Homelessness unspecified | CPT/HCPCS: 90792; 99239; 99499 ==